=== PATIENT | female | born 1990 | race Caucasian/White ===

== ENCOUNTER → 2017-12-01 15:05 | Outpatient (CLI) | payer MEDICAID, SELFPAY ==
[2017-12-01 15:27] LABS: Basophils % 0.2 % (0.1-2.0); Eosinophils % 0.7 % (0.1-12.0); Hematocrit 39.7 % (37.0-47.0); Hemoglobin 13.3 g/dL (12.2-16.2); Lymphocytes % 31.8 K/mm3 (10-50); Mean Corpuscular HGB Conc 33.7 g/dL (31.8-35.4); Mean Corpuscular Hemoglobin 31.7 pg (27.0-31.2); Mean Corpuscular Volume 94.2 fl (81-99); Mean Platelet Volume 7.7 fl (7.4-10.4); Monocytes # 0.4 K/mm3 (0.1-1.0); Monocytes % 6.3 % (1.7-9.3); Neutrophils # 3.9 K/mm3 (1.8-7.8); Platelet Count 182 K/mm3 (142-424); Red Blood Count 4.21 M/mm3 (4.20-5.40); White Blood Count 6.4 K/mm3 (4.8-10.8)
[2017-12-03 07:13] LABS: HIV Screen 4th Generation wRfx Non Reactive (Non Reactive)
[2017-12-03 09:48] LABS: Hepatitis B Surface Antigen Negative (Negative); Hepatitis C Antibody <0.1 s/co ratio (0.0-0.9); Rapid Plasma Reagin Ab Titer Non Reactive (NonRea<1:1)
== END ==
PROVIDERS: Family Provider Family Medicine; PCP Family Medicine; Visit Provider Nurse Practitioner Obstetrics & Gynecology
DX: Z34.90 Encounter for supervision of normal pregnancy, unspecified, unspecified trimester (principal)
CPT/HCPCS: 36415; 85025; 86592; 86703; 86762; 86850; 87340; 87380; G0432

== ENCOUNTER → 2017-12-08 12:53 | Outpatient (CLI) | payer MEDICAID, SELFPAY ==
--- NOTE | 2017-12-08 12:55 | US_ITS ---
US OB transvaginal HISTORY: ITS.REASON: US OB for Dates ORDERING PHYSICIAN: Gregorio Moody MD PATIENT AGE: 27 years COMPARISON: None FINDINGS: An intrauterine gestational sac is present with a pole with a crown-rump length of 1.87cm correlating to gestational age of 8w3d. heart tones are present with an FHR of 151 bpm's. Yolk sac is noted. The amnion and chorion have not yet fused. Adnexa: 1.5 cm right corpus luteum cyst. IMPRESSION: Live intrauterine gestation at 8 weeks 3 days. Estimated due date by ultrasound is 07/15/2018
== END ==
PROVIDERS: Family Provider Family Medicine; PCP Family Medicine; Visit Provider Nurse Practitioner Obstetrics & Gynecology
DX: O26.841 Uterine size-date discrepancy, first trimester (principal)
CPT/HCPCS: 76830

== ENCOUNTER → 2018-02-25 12:40 | Outpatient (CLI) | payer MEDICAID, SELFPAY ==
--- NOTE | 2018-02-25 12:41 | US_ITS ---
US OB /maternal detail: INDICATION: ITS.REASON: US OB Complete ORDERING PHYSICIAN: Gregorio Moody MD PATIENT AGE: 27 years TECHNIQUE: ultrasound transabdominal scanning. COMPARISON: No previous relevant studies. FINDINGS: Single viable intrauterine gestation. Cephalic position. Placenta: Anterior placenta grade weren't. There is average amount fluid. The cervix appears satisfactory. Closed and measuring 3 in length. Complete survey performed and was unremarkable on the submitted images as in PACS. No discrete anomalies identified on survey imaging by technologist. Active fetus. Three-vessel cord with satisfactory umbilical cord insertion. 4- chamber heart noted. Survey of brain & ventricles unremarkable. Face and neck survey unremarkable. Diaphragm and chest views unremarkable. Abdomen: Both kidneys noted and unremarkable. Stomach noted and satisfactory. Spine: Survey of the spine satisfactory with no anomalies identified nor imaged. Both arms and legs noted. Amniotic Fluid: Adequate. Maternal adnexa: No significant findings. Measurements: Average ultrasound age 20w0d. Gestational Age 19w5d. Estimated due date by ultrasound age 1107/15/2018. Estimated weight 312 grams. This is 49 percentile based on established due date BPD = 20w3d OFD = 20w2d HC = 19w4d AC = 20w1d FL = 19w4d Heart Rate = 150 bpm Cerebellum = 19w5d Humerus = 19w6d HC/AC is 1.14 (1.09-1.26). CI is 81% (70-86%). FL/BPD is 65%. FL/AC is 21%. IMPRESSION: Live intrauterine gestation at 20 weeks in cephalic presentation with an estimated due date of 07/15/2018. All parameters correlate. No obvious anomalies. Please see above for detail
== END ==
PROVIDERS: Family Provider Family Medicine; PCP Family Medicine; Visit Provider Nurse Practitioner Obstetrics & Gynecology
DX: Z36.0 Encounter for antenatal screening for chromosomal anomalies (principal)
CPT/HCPCS: 76811

== ENCOUNTER 2018-03-18 11:52 | Outpatient (CLI) | payer MEDICAID, SELFPAY ==
[2018-03-18 11:58] VITALS: BP 99/56; PULSE 97; RESP 18; TEMP 36.8; O2SAT 100; BMI 20.7
[2018-03-18 12:28] LABS: Microscopic, Urine URINE MICROSCOPIC (MICROSCOPIC)
[2018-03-18 12:29] LABS: Appearance,Urine CLEAR (Clear); Bilirubin,Urine Negative (Negative); Blood, Urine Negative (Negative); Color,Urine YELLOW (Yellow); Glucose,Urine (UA) Negative (Negative); Ketones,Urine Negative (Negative); Leukocyte Esterase,Urine Negative (Negative); Nitrate,Urine Negative (Negative); Protein,Urine Negative (Negative); Specific Gravity, Urine <= 1.005 (1.005-1.030); Urobilinogen,Urine 0.2 EU/dl (0.2)
[2018-03-18 12:37] LABS: Bacteria,Urine 1+ /lpf
== END 2018-03-18 12:52 | disposition home or self-care (01) ==
LOC: OBOUT 11:54 → OB 11:57
PROVIDERS: Visit Provider Obstetrics & Gynecology
DX: O47.02 False labor before 37 completed weeks of gestation, second trimester (principal); Z3A.22 22 weeks gestation of pregnancy
CPT/HCPCS: 59025; 81001

== ENCOUNTER → 2018-06-10 08:44 | Outpatient (CLI) | payer MEDICAID, SELFPAY ==
--- NOTE | 2018-06-10 08:45 | US_ITS ---
US OB biophysical profile, US SD Ratio umbilcal artery: Indication: Small for gestational age evaluation ITS.REASON: US OB BPP Growth- SGA ORDERING PHYSICIAN: Gregorio Moody MD PATIENT AGE: 27 years COMPARISON: 02/25/2018 FINDINGS: There is a single live fetus present in cephalic presentation. Average ultrasound age is 33 weeks and 6 days with an estimated due date by ultrasound of 07/23/2018. Estimated weight is 2132 g which is 11th percentile. movement and breathing motion noted BPD is 34 weeks 5 days, HC 34 weeks 4 days, abdominal circumference 33 weeks 0 days, FL 32 weeks 5 days. The HC/before meals is 1.07, cephalic index 78%, FL/BPD 73%, and FL/ac 22%. All are within normal limits. The placenta is anterior and grade 2. No placenta previa. Umbilical artery Doppler evaluation shows an SD ratio of 2.8 with a resistive index of 0.64. Biophysical profile is 8 of 8 with amniotic fluid index of 11 cm. IMPRESSION: Live intrauterine gestation with an average ultrasound age of 33 weeks and 6 days and an estimated weight 2132 g which is 11%. Anterior grade 2 placenta with unremarkable as sd ratio Biophysical profile 8 of 8
== END ==
PROVIDERS: Family Provider Family Medicine; PCP Family Medicine; Visit Provider Nurse Practitioner Obstetrics & Gynecology
DX: O36.5131 Maternal care for known or suspected placental insufficiency, third trimester, fetus 1 (principal)
CPT/HCPCS: 76819; 76820

== ENCOUNTER 2018-06-12 18:59 | Outpatient (CLI) | payer MEDICAID, SELFPAY ==
[2018-06-12 19:21] VITALS: BMI 22.2
[2018-06-12 19:25] VITALS: BP 107/74; PULSE 95; RESP 18; TEMP 37; O2SAT 97; BMI 22.2
[2018-06-12 19:29] LABS: Microscopic, Urine URINE MICROSCOPIC (MICROSCOPIC)
[2018-06-12 19:31] LABS: Appearance,Urine CLEAR (Clear); Bilirubin,Urine Negative (Negative); Blood, Urine Negative (Negative); Color,Urine YELLOW (Yellow); Glucose,Urine (UA) Negative (Negative); Ketones,Urine Negative (Negative); Leukocyte Esterase,Urine Negative (Negative); Nitrate,Urine Negative (Negative); Protein,Urine Negative (Negative); Specific Gravity, Urine <= 1.005 (1.005-1.030); Urobilinogen,Urine 0.2 EU/dl (0.2)
[2018-06-12 19:34] LABS: Amorphous Sediment,Urine Trace /lpf; Bacteria,Urine Trace /lpf; WBC,Urine Occasional #/hpf (0-3)
== END 2018-06-12 21:55 | disposition home or self-care (01) ==
LOC: OBOUT 19:00 → OB 19:01
PROVIDERS: PCP Family Medicine; Visit Provider Nurse Practitioner Obstetrics & Gynecology
DX: O47.03 False labor before 37 completed weeks of gestation, third trimester (principal); Z3A.35 35 weeks gestation of pregnancy
CPT/HCPCS: 59025; 81001; 96360; 96361; 96372

== ENCOUNTER → 2018-06-15 16:42 | Outpatient (REF) | payer MEDICAID, SELFPAY | LOC: LAB 16:42 | PROVIDERS: Visit Provider Nurse Practitioner Obstetrics & Gynecology | DX: Z34.90 Encounter for supervision of normal pregnancy, unspecified, unspecified trimester (principal) | CPT/HCPCS: 86403 ==

== ENCOUNTER 2018-06-18 15:06 | Outpatient (CLI) | payer MEDICAID, SELFPAY ==
[2018-06-18 15:29] VITALS: BP 104/64; PULSE 110; RESP 18; TEMP 36.9; O2SAT 96; BMI 22.0
[2018-06-18 16:02] LABS: Microscopic, Urine URINE MICROSCOPIC (MICROSCOPIC)
[2018-06-18 16:18] LABS: Appearance,Urine CLEAR (Clear); Bilirubin,Urine Negative (Negative); Blood, Urine Negative (Negative); Color,Urine YELLOW (Yellow); Glucose,Urine (UA) Negative (Negative); Ketones,Urine TRACE (Negative); Leukocyte Esterase,Urine Negative (Negative); Nitrate,Urine Negative (Negative); Protein,Urine Negative (Negative); Urobilinogen,Urine 0.2 EU/dl (0.2)
[2018-06-18 16:34] LABS: Bacteria,Urine 1+ /lpf
== END 2018-06-18 16:15 | disposition home or self-care (01) ==
LOC: OBOUT 15:09 → OB 15:11
PROVIDERS: PCP Family Medicine; Visit Provider Nurse Practitioner Obstetrics & Gynecology
DX: O47.03 False labor before 37 completed weeks of gestation, third trimester (principal); Z3A.35 35 weeks gestation of pregnancy
CPT/HCPCS: 59025; 81001; 96360

== ENCOUNTER → 2018-07-01 09:21 | Outpatient (CLI) | payer MEDICAID, SELFPAY ==
--- NOTE | 2018-07-01 | US_ITS ---
US OB biophysical profile, US OB follow up, US SD Ratio umbilcal artery: Indication: ITS.REASON: US OB BPP Growth- SGA ORDERING PHYSICIAN: Gregorio Moody MD PATIENT AGE: 28 years FINDINGS: The following parameters are obtained: Average ultrasound age is 35w1d. Estimated due date by ultrasound is 08/04/2018. Estimated weight is 2383 . This is 3 percentile indicating intrauterine growth restriction BPD: 36w1d OFD: 36w1d HC: 35w5d AC: 33w2d FL: 35w1d heart rate: 136 bpm. HC/AC: 1.09 (0.92-1.05) Cephalic index: 80% (70-86%) FL/BPD: 76% (71-87%) FL/AC: 23% (20-24%) Amniotic fluid index: 12 cm Qualitative AFV: 2 breathing movements: 2 Gross body movements: 2 Tone: 2 Biophysical profile score: 8/8 Doppler evaluation of the umbilical artery: SD ratio: 2.6 Resistive index: 0.61 No obvious anomalies evident. Placenta: Anterior Gr 2 Cervix: Appears closed and measures 3 cm IMPRESSION: There is a single live intrauterine gestation which is in cephalic presentation. Average ultrasound age is 35 weeks and 1 day. Estimated weight is 2383 g which is 3rd percentile indicating intrauterine growth restriction which appears asymmetric as the abdominal circumference is 2 weeks behind the remaining parameters Grade 2 anterior placenta. Biophysical profile 8 of 8 with an amniotic fluid index of 12 Unremarkable umbilical artery Doppler
== END ==
PROVIDERS: Family Provider Family Medicine; PCP Family Medicine; Visit Provider Nurse Practitioner Obstetrics & Gynecology
DX: O36.5131 Maternal care for known or suspected placental insufficiency, third trimester, fetus 1 (principal)
CPT/HCPCS: 76816; 76819; 76820

== ENCOUNTER 2018-07-11 05:14 | Inpatient (IN) ==
[2018-07-11 05:51] LABS: Basophils % 0.3 % (0.1-2.0); Eosinophils # 0.1 K/mm3 (0.0-0.4); Eosinophils % 0.9 % (0.1-12.0); Hematocrit 39.6 % (37.0-47.0); Hemoglobin 13.4 g/dL (12.2-16.2); Lymphocytes % 31.4 K/mm3 (10-50); Mean Corpuscular HGB Conc 33.8 g/dL (31.8-35.4); Mean Corpuscular Hemoglobin 32.8 pg (27.0-31.2); Mean Corpuscular Volume 97.3 fl (81-99); Mean Platelet Volume 7.8 fl (7.4-10.4); Monocytes # 0.8 K/mm3 (0.1-1.0); Monocytes % 6.3 % (1.7-9.3); Neutrophils # 7.9 K/mm3 (1.8-7.8); Neutrophils % 61.1 % (37.0-80.0); Platelet Count 247 K/mm3 (142-424); Red Blood Count 4.07 M/mm3 (4.20-5.40); Red Cell Distribution Width 13.1 % (11.5-17.5); White Blood Count 12.8 K/mm3 (4.8-10.8)
[2018-07-11 05:59] LABS: Anion Gap 13.5 mEq/L (5-15); Calcium 8.4 mg/dL (8.5-10.1); Potassium 3.5 mmoL/L (3.5-5.1)
--- NOTE | 2018-07-11 07:09 | Progress Note ---
[facility] Anesthesia Checklist - Patient Identification Patient Identification: Arm Band, Verbal (Name & ) - Structural Data Admitted From: Inpatient Planned Operative Procedure/s: c section Consent for Planned Operative Procedure(s) Verified: Yes Verified Documents: Surgical Consent, History and Physical - NPO Status Verified Time NPO: 00:00 - Additional verifications Patient : Yes Anesthesia Reactions: No Hx Blood Transfusions: No Blood Transfusion Reaction: No Cephalosporin Allergy: No Previous Colonoscopy: No - Cardiovascular Assessment Heart Sounds: S1 & S2 Pulse Strength: Baseline Pulse Rhythm: Regular Peripheral Edema: No - Airway Assessment C-Spine Mobility Assessed: Yes TMJ Mobility Assessed: Yes Dentition: Poor Dentition - Neurological Assessment Level of Consciousness: Awake, Alert, Appropriate Hx Seizures: No Numbness or tingling in extremities: No - Anesthesia Plan Anesthesia Risk discussed: Yes Anesthesia Plan: Verified ASA Class: II Anesthesia Type: Spinal [facility] History I have reviewed the patient's past medical history: Yes 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: Denies:: Cancer, Diabetes Mellitus Type 1, Diabetes Mellitus Type 2, MRSA Other Surgeries: Yes: Amputation: No Fractures: No - *Social History Smoking Status: Current every day smoker Tobacco Type: cigarettes Alcohol Intake: never Substance Use Type: denies use *Family Hx:: No significant family history Para: 1
--- NOTE | 2018-07-11 08:18 | Operative Note ---
Date of procedure: 07/11/18 Pre-op Diagnosis:: Term , previous section Post-op Diagnosis:: Term , previous section Procedure performed:: Repeat lower segment transverse section Surgeon:: Gregorio Moody MD Tape Weaver(s):: Tiara Quiroga COKE LOADER:: Calvin Madrid Anesthesia: spinal Estimated blood loss (mL): 600 Clinical Note:: She is a 28-year-old 3 para 1 aborta 1 who was 39 weeks gestational age. She has had a previous section and as result of that was offered re peat lower segment transverse section at term. And benefits of surgery were discussed the patient prior to surgery. Operative findings:: She delivered a liveborn male child at 7:47 AM on the morning of July 11, 2018. Baby had Apgars of 9 at 1 minute and 10 at 5 minutes pH was 7.40. Ovaries and tubes appeared normal. Operative note:: She was taken to the operating room where spinal anesthesia was found be adequate. She was prepped and draped in normal sterile fashion in the supine position with a leftward tilt. A Borja catheter was in the bladder. A Pfannenstiel skin incision was made with knife then carried through to the underlying layer of fascia with cautery. The fascia was opened in the midline with cautery and extended laterally using Mendoza scissors. Po clamps were applied to the superior aspect of the fascial incision which was tented up and the underlying rectus muscles dissected off using cautery. The Po clamps were then applied to the inferior aspect of the fascial incision which in a similar fashion was tented up and the underlying rectus muscles dissected off using cautery. The rectus muscles were then in the midline, the peritoneum identified, and entered sharply with Metzenbaum scissors. This incision was then extended superiorly and inferiorly with cautery. We had good visualization of the bladder inferiorly. The bladder peritoneum was then opened in the midline and extended laterally using Metzenbaum scissors. A bladder flap was created digitally. Lower blade of the Jessie was then inserted so as to push the bladder out of the way. Transverse incision was made through the uterine muscle to the amnion. This incision was then extended laterally using fingers traction. The amnion was entered sharply with knife. There was clear amniotic fluid. The 's head was then delivered atraumatically. This was followed by the anterior shoulder and the rest of the infant's body atraumatically. The oropharynx and nasopharynx were bulb suctioned. The infant was then handed off to Dr. Tucker who assigned Apgars of 9 at 1 minute and 10 at 5 minutes. We then obtained cord blood as well as cord pH. The pH was 7. 4 0. Using gentle traction on the cord and countertraction on the fundus I was able to easily deliver the placenta intact. It had a normal three-vessel cord. The uterus was then cleared of clots and debris . The uterine incision was then closed using running 0 Vicryl suture in a locked fashion. A second layer of the same suture was used to imbricate the first layer. The bladder peritoneum was then closed using running 2-0 Vicryl suture in a locked fashion. The gutters and cul-de-sac were then cleared of clots and debris . Once again hemostasis was assured. The peritoneum was grasped with Tess clamps and closed using running 2-0 Vicryl suture. The rectus muscles were then reapproximated using running 0 Vicryl suture. The fascia was closed using running #1 Vicryl suture. The subcutaneous tissues were then irrigated with warm water followed by closure Cathy's fascia using running 2-0 Monocryl suture. The skin was closed with juan manuel. I then cleaned the skin with Hibiclens. Sterile dressings were applied. She tolerated the procedure well and was taken to the recovery room in excellent condition. All sponges minute and needle counts were correct. Estimate a blood loss was approximately 600 mL. Condition: stable Disposition: PACU Specimens:: Products of conception Complications:: None
--- NOTE | 2018-07-11 08:21 | Progress Note ---
[facility] Anesthesia Record Part II Discharge Time: 08:45 Destination: Obstetric PACU nurse assessment reviewed?: Yes Patient Condition:: Good Anesthesia Complications:: None
--- NOTE | 2018-07-11 08:21 | Progress Note ---
[facility] Anesthesia Record Part I Intake, IV Amount: 2,000 Estimated blood loss (mL): 600 Urine output (mL): 300 Blood Pressure: 103/74 SaO2: 96 Pulse Rate: 73 Respiratory Rate: 16 Temperature: 97 F Patient is:: Awake, Stable Stable to PACU at:: 08:15
[2018-07-11 14:15] LABS: Hematocrit 34.5 % (37.0-47.0)
[2018-07-11 14:21] LABS: Hemoglobin 12.1 g/dL (12.2-16.2)
[2018-07-12 05:39] LABS: Basophils % 0.2 % (0.1-2.0); Eosinophils # 0.1 K/mm3 (0.0-0.4); Eosinophils % 0.9 % (0.1-12.0); Hematocrit 34.6 % (37.0-47.0); Hemoglobin 11.6 g/dL (12.2-16.2); Lymphocytes % 23.9 K/mm3 (10-50); Mean Corpuscular HGB Conc 33.7 g/dL (31.8-35.4); Mean Corpuscular Hemoglobin 33.1 pg (27.0-31.2); Mean Corpuscular Volume 98.3 fl (81-99); Mean Platelet Volume 7.9 fl (7.4-10.4); Monocytes % 7.9 % (1.7-9.3); Neutrophils # 8.5 K/mm3 (1.8-7.8); Neutrophils % 67.1 % (37.0-80.0); Platelet Count 243 K/mm3 (142-424); Red Blood Count 3.51 M/mm3 (4.20-5.40); White Blood Count 12.7 K/mm3 (4.8-10.8)
--- NOTE | 2018-07-12 08:08 | Progress Note ---
Internal Medicine - PN: Subj *Date: 07/12/18 *Time: 08:06 Interval history: She continues to do very well. She is eating and is breast-feeding. Her lochia is normal. Her pain is well controlled. Exam Vital signs and Labs for Last 24 Hours: Temp Pulse Resp BP Pulse Ox 97.4 F L 66 16 105/64 L 97 07/11/18 08:45 07/11/18 08:45 07/11/18 08:45 07/11/18 08:45 07/11/18 08:45 Laboratory Results - last 24 hr 07/11/18 07:34: Urine Color Yellow, Urine Appearance Clear, Urine pH 7.0, Ur Specific [place] <= 1.005, Urine Protein Negative, Urine Glucose (UA) Negative, Urine Ketones Negative, Urine Blood 3+, Urine Nitrate Negative, Urine Bilirubin Negative, Urine Urobilinogen 0.2, Ur Leukocyte Esterase Negative, Urine RBC 5- 10, Urine WBC None, Ur Squamous Epith Cells Occasional, Urine Bacteria Trace 07/11/18 14:00: Hgb 12.1 L, Hct 34.5 L 07/12/18 05:24: WBC 12.7 H, RBC 3.51 L, Hgb 11.6 L, Hct 34.6 L, MCV 98.3, MCH 33.1 H, MCHC 33.7, RDW 13.0, Plt Count 243, MPV 7.9, Neut % (Auto) 67.1, Lymph % (Auto) 23.9, [place] % (Auto) 7.9, Eos % (Auto) 0.9, Baso % (Auto) 0.2, Neut # (Auto) 8.5 H, Lymph # (Auto) 3.0, [place] # (Auto) 1.0, Eos # (Auto) 0.1, Baso # (Auto) 0.0 I & O for Last 24 hours: Intake & Output 07/09/18 07/10/18 07/11/18 07/12/18 11:59 11:59 11:59 11:59 Intake Total 2165 / 2165 Output Total 375 / 375 Balance 1790 / 1790 Weight 111 lb - Constitutional no acute distress Assessment and Plan (1) Previous section complicating , with delivery Current visit: Yes Status: Acute Category: Medical Code(s): O34.219 - Maternal care for unspecified type scar from previous delivery - Assessment and plan all Dx Assessment and Plan for all problems:: She continue to do well. We will plan to send her home in 48 hours.
--- NOTE | 2018-07-12 08:09 | History & Physical Report ---
OB - H&P: HPI Antepartum - History of Present Illness Chief complaint: Term , previous section History of present illness: She is a 28-year-old 3 para 1 aborta 1 who is 39 weeks gestational age. She has had a previous section and as a result of that was offered repeat lower segment transverse section at term. - History of Present Criteria for establishing EDC:: LMP confirmed by 1st trimester US care: good care Ultrasounds: normal 1st trimester US Obstetrical complications: growth restriction Medical complications: none - Labs Blood type: O (+) positive Rubella: immune RPR/VDRL: nonreactive GBS status: positive HBsAG: negative [facility] History I have reviewed the patient's past medical history: Yes 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: Denies:: Cancer, Diabetes Mellitus Type 1, Diabetes Mellitus Type 2, MRSA, Seizures Other 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: Denies: Blood Transfusion Reaction Other Surgeries: Yes: Amputation: No Fractures: No - *Social History Smoking Status: Current every day smoker Tobacco Type: cigarettes Alcohol Intake: never Substance Use Type: denies use *Family Hx:: No significant family history Para: 1 Review of Systems - Review of Systems Review of systems:: pertinent systems reviewed and negative unless documented below Meds Home Medications Medication Instructions Recorded Confirmed Type 1 tab PO QHS 12/01/17 07/11/18 History vitamin,calcium,xybbvukw-rzbd-jefyy acid tablet Benzoyl Peroxide 1 applic TOPICAL BID 02/20/18 07/11/18 History Ferrous Sulfate 325 mg PO DAILY 06/12/18 07/11/18 History NIFEdipine [Procardia] 10 mg PO .4 times a day 07/11/18 07/11/18 History Allergies Allergy/AdvReac Type Severity Reaction Status Date / Time Penicillins [PENICILLINS] Allergy Unknown Unknown Verified 07/08/18 11:47 allergy reaction Sulfa (Sulfonamide Allergy Unknown Unknown Verified 07/08/18 11:47 Antibiotics) allergy [SULFA (SULFONAMIDE reaction ANTIBIOTICS)] codeine Allergy Unknown Verified 07/08/18 11:47 allergy reaction OB - H&P: Exam - Physical Exam Vital signs: Temp Pulse Resp BP Pulse Ox 97.4 F L 66 16 105/64 L 97 07/11/18 08:45 07/11/18 08:45 07/11/18 08:45 07/11/18 08:45 07/11/18 08:45 - Constitutional no acute distress - Routine HEENT Exam Head: Present: normocephalic Eye: Present: EOMI, PERRL ENT: Present: mucous membranes moist - Routine Neck Exam Present: supple, full ROM - Routine Respiratory Exam Absent: accessory muscle use (good air entry bilaterally), respiratory distress, wheezes, crackles - Routine Cardiovascular Exam Present: RRR. Absent: murmur - Routine Abdominal Exam Present: soft, normoactive bowel sounds. Absent: tenderness, distended, guarding - Routine Rectal Exam Patient deferred: visual exam, digital exam - Routine Exam Patient deferred: external exam, groin exam, perineal exam - Routine Extremities Exam Present: full ROM. Absent: cyanosis, edema - Routine Skin Exam Present: intact. Absent: cyanosis - Routine Neurological Exam Present: alert, oriented X3 - Routine Psychiatric Exam Present: normal affect OB - Results - Labs Labs: Short CBC 07/11/18 07/12/18 Range/Units 14:00 05:24 WBC 12.7 H (4.8-10.8) K/mm3 Hgb 12.1 L 11.6 L (12.2-16.2) g/dL Hct 34.5 L 34.6 L (37.0-47.0) % Plt Count 243 (142-424) K/mm3 Urine 07/11/18 Range/Units 07:34 Urine Color Yellow (Yellow) Urine Appearance Clear (Clear) Urine pH 7.0 (5.0-8.5) Ur Specific [place] <= 1.005 (1.005-1.030) Urine Protein Negative (Negative) Urine Glucose (UA) Negative (Negative) OB - A/P Antepartum (1) Previous section complicating , with delivery Current visit: Yes Status: Acute - Additional Plan Planning to breastfeed?: Yes Plan: other Additional Information:: She is here for a repeat lower segment transverse section
--- NOTE | 2018-07-12 16:22 | Pharmacy Consult Notes ---
[facility] Pharmacy VTE Monitoring - Patient Demographics Admission date: 07/11/18 Report Date: 07/12/18 Time: 16:22 Allergies/Adverse Reactions: Patient Allergies Penicillins [PENICILLINS] Allergy (Unknown, Verified 07/08/18 11:47) Unknown allergy reaction Sulfa (Sulfonamide Antibiotics) [SULFA (SULFONAMIDE ANTIBIOTICS)] Allergy (Unknown, Verified 07/08/18 11:47) Unknown allergy reaction codeine Allergy (Verified 07/08/18 11:47) Unknown allergy reaction Height: 1.5 m Weight: 50.349 kg Patient Problems: Current Active Problems Previous section complicating , with delivery (Acute) - VTE Risk Labs: VTE Related Lab Results Hgb 11.6 g/dL (12.2-16.2) L 07/12/18 05:24 Hct 34.6 % (37.0-47.0) L 07/12/18 05:24 Plt Count 243 K/mm3 (142-424) 07/12/18 05:24 BUN 3 mg/dL (7-18) L 07/11/18 05:35 Creatinine 0.46 mg/dL (0.55-1.02) L 07/11/18 05:35 Estimated Creat Clear 143 mL/min (0-300) 07/11/18 05:35 - Prophylaxis VTE Prophylaxis Ordered?: Yes Types of VTE Prophylaxis: IPCS Knee High Location of Applied Device: Bilateral Lower Extremeties
--- NOTE | 2018-07-13 09:37 | Progress Note ---
Internal Medicine - PN: Subj *Date: 07/13/18 *Time: 09:37 Interval history: She is doing well this morning. She is eating and drinking and ambulating. She is breast-feeding. Her milk is coming. Her incision is clean and dry. Exam Vital signs and Labs for Last 24 Hours: Temp Pulse Resp BP Pulse Ox 98.6 F 71 18 110/70 98 07/12/18 20:16 07/12/18 20:16 07/12/18 20:16 07/12/18 20:16 07/12/18 20:16 I & O for Last 24 hours: Intake & Output 07/10/18 07/11/18 07/12/18 07/13/18 11:59 11:59 11:59 11:59 Intake Total 2165 / 2165 Output Total 375 / 375 Balance 1790 / 1790 Weight 111 lb 111 lb - Constitutional no acute distress - *Routine Abdominal Exam Present: soft (Incision is clean and dry.), normoactive bowel sounds, wound. Absent: tenderness, rebound, guarding, mass Assessment and Plan (1) Previous section complicating , with delivery Current visit: Yes Status: Acute Category: Medical Code(s): O34.219 - Maternal care for unspecified type scar from previous delivery - Assessment and plan all Dx Assessment and Plan for all problems:: She continues to do well. We will plan to send her home tomorrow.
[2018-07-13 23:53] VITALS: BP 109/59
--- NOTE | 2018-07-14 08:14 | Discharge Summary ---
General - General Admission date:: 07/11/18 Discharge date: 07/14/18 HPI HPI: She is a 28-year-old 3 now para 2 aborta 1 who is 39 weeks gestational age. She has had a previous section and as result of that was offered repeat lower segment transverse section. Hospital Course Hospital Course: On July 11, 2018 she underwent a repeat lower segment transverse section. She delivered a liveborn male child weighing 5 pounds 10 ounces and he was 18 inches long. He had Apgars of 9 at 1 minute and 10 at 5 minutes. She has done well and has remained afebrile throughout her hospitalization. She is eating and building. She is breast-feeding. She has O+ blood, she is rubella immune and she was group B streptococcus positive. Her knocker out is Dr. Tucker. She is discharged home to follow-up with me in approximately 2 weeks time. She will continue with her vitamins and iron. She was given a prescription for Percocet 5/325 number 20 tablets. Rhogam Administration: Not Indicated Objective Vital signs: Temp Pulse Resp BP Pulse Ox 98.4 F 62 18 109/59 L 98 07/13/18 20:31 07/13/18 20:31 07/13/18 20:31 07/13/18 20:31 07/13/18 20:31 no acute distress DS: Diagnosis - Discharge Diagnosis (1) Previous section complicating , with delivery Status: Acute Discharge Plan - Patient Discharge Instructions ACTIVITY: No heavy lifting DIET: continue same diet Patient Instructions: Depression, Hemorrhage, Surgical Site Infection, DI for Postoperative Pain, [facility] Post Discharge Instructions - Follow up Plan Follow up with: Gregorio Moody MD [Staff Physician] - 07/25/18 1:45 pm Disposition: Home, Self-Group Home Medications: Home Medications Medication Instructions Recorded Confirmed Type 1 tab PO HS 12/01/17 07/12/18 History vitamin,calcium,nfzbgmbz-mjnh-yugpe acid tablet Benzoyl Peroxide 1 applic TOPICAL BID 02/20/18 07/11/18 History Ferrous Sulfate 325 mg PO DAILY 06/12/18 07/11/18 History NIFEdipine [Procardia] 10 mg PO QID 07/11/18 07/12/18 History Prescriptions/Medication Reconciliation: New Oxycodone HCl/Acetaminophen [Percocet 5/325mg tablet] 1 - 2 tab PO Q4-6H PRN #20 tablet PRN Reason: Severe Pain Simethicone [Mylicon 80mg Chewable Tablet] 160 mg PO Q4HP PRN #30 tab.chew PRN Reason: Gas Pain And Discomfort Continue vitamin,calcium,msouuuul-raue-oqloy acid tablet 1 tab PO HS ranitidine 150 mg tablet 150 mg PO BID #60 tab Benzoyl Peroxide 1 applic TOPICAL BID Ferrous Sulfate 325 mg PO DAILY NIFEdipine [Procardia] 10 mg PO QID
== END 2018-07-14 13:55 | disposition home or self-care (01) ==
LOC: OB 05:14
PROVIDERS: ADMIT Nurse Practitioner Obstetrics & Gynecology; ATTEND Nurse Practitioner Obstetrics & Gynecology

== ENCOUNTER → 2019-06-05 14:06 | Outpatient (CLI) | payer MEDICAID, SELFPAY ==
[2019-06-05 15:42] LABS: HCG,Quantitative 61 mIU/mL
== END ==
PROVIDERS: Visit Provider Nurse Practitioner Obstetrics & Gynecology
DX: Z32.00 Encounter for pregnancy test, result unknown (principal)
CPT/HCPCS: 36415; 84702

== ENCOUNTER → 2019-06-12 15:08 | Outpatient (CLI) | payer MEDICAID, SELFPAY ==
[2019-06-12 17:47] LABS: HCG,Quantitative 180 mIU/mL
== END ==
PROVIDERS: Visit Provider Nurse Practitioner Obstetrics & Gynecology
DX: Z34.90 Encounter for supervision of normal pregnancy, unspecified, unspecified trimester (principal)
CPT/HCPCS: 36415; 84702

== ENCOUNTER → 2019-07-06 09:59 | Outpatient (CLI) | payer MEDICAID, SELFPAY | PROVIDERS: Visit Provider Nurse Practitioner Obstetrics & Gynecology | DX: N39.0 Urinary tract infection, site not specified (principal) | CPT/HCPCS: 87086; 87088; 87186 ==

== ENCOUNTER 2020-01-10 17:15 | Emergency (ER) | payer OTHER, SELFPAY ==
[2020-01-10 17:16] VITALS: BP 112/79; PULSE 120; RESP 22; TEMP 37.2; O2SAT 100; BMI 19.8
--- NOTE | 2020-01-10 17:29 | ECG_ITS ---
APPROVED REPORT Exam: Resting ECG HR:89 bpm ECG Measurements Heart Rate [address] 112 P 64 QRSd 80 QRS 49 QT 332 T 65 QTc 403 <Conclusion> Normal sinus rhythm Normal ECG Electronically signed by : Juan Daniel Bradshaw, 01/12/2020 16:34:10
--- NOTE | 2020-01-10 17:49 | CT_ITS ---
PROCEDURE: CT ANGIO CHEST CLINCIAL INDICATION: SOA, COUGH, HEAVINESS IN CHEST Chest pain and pressure, shortness of breath COMPARISON: CXR CHEST(2 VIEWS-NOT PORTABLE) from 04/05/2013 TECHNIQUE: IV Contrast: 70ML OPTIRAY 350 Axial images obtained with sagittal and coronal reformats. All CT scans at the facility use one or more dose reduction, viz: automated exposure control, ma/kV adjustment per patient size (including targeted exams where dose is matched to indication, i.e. head), or iterative reconstruction technique. FINDINGS: HEART AND MEDIASTINAL STRUCTURES: No evidence of aortic aneurysm, dissection, or pulmonary embolus. No mediastinal or hilar mass or adenopathy. LUNGS AND PLEURAL SPACES: There is a 6 mm noncalcified pulmonary nodule within the right lower lobe anteriorly. The remaining lungs are clear. BONY STRUCTURES: There is wedging of the anterior aspect of the T7 vertebral body having a somewhat butterfly configuration anteriorly. This is felt represent a congenital variant UPPER ABDOMEN: Unremarkable. ADDITIONAL FINDINGS: No other significant abnormalities. IMPRESSION: 1. No acute finding. No evidence of pulmonary embolus or aortic aneurysm or dissection. 2. 6 mm solitary pulmonary nodule. For low risk patients in this age group, no specific follow-up is suggested per the revised Fleischner criteria Dictated by: Titus Medina MD 01/10/2020 20:30 Electronically signed by Titus Medina MD in [place] 01/10/2020 20:30
[2020-01-10 18:00] LABS: Basophils # 0.1 K/mm3 (0-0.2); Basophils % 1.1 % (0.1-2.0); Eosinophils # 0.1 K/mm3 (0.0-0.4); Hemoglobin 14.2 g/dL (12.2-16.2); Lymphocytes % 28.3 % (10-50); Mean Corpuscular HGB Conc 33.7 g/dL (31.8-35.4); Mean Corpuscular Hemoglobin 31.4 pg (27.0-31.2); Mean Corpuscular Volume 93.1 fl (81-99); Mean Platelet Volume 7.6 fl (7.4-10.4); Monocytes # 0.4 K/mm3 (0.1-1.0); Monocytes % 5.4 % (1.7-9.3); Neutrophils # 4.5 K/mm3 (1.8-7.8); Neutrophils % 64.2 % (37.0-80.0); Platelet Count 253 K/mm3 (142-424); Red Blood Count 4.51 M/mm3 (4.20-5.40); Red Cell Distribution Width 12.3 % (11.5-17.5); White Blood Count 6.9 K/mm3 (4.8-10.8)
[2020-01-10 18:02] LABS: Chloride 104 mmol/L (98-107); Potassium 3.7 mmoL/L (3.5-5.1); Sodium 139 mmol/L (136-145)
[2020-01-10 18:05] LABS: Anion Gap 10.7 mEq/L (5-15); Blood Urea Nitrogen 11 mg/dl (7-17); Calcium 9.3 mg/dl (8.4-10.2); Carbon Dioxide 28 mmol/L (22.0-30.0); Creatinine Clearance Estimated 82 mL/min (50-200); Estimated Glomerular Filt Rate 98 ml/min (>60); GFR (African American) 119 ML/MIN (>60); Glucose 102 mg/dl (74-100)
--- NOTE | 2020-01-10 18:15 | HMH.EDSOB ---
ED Disposition Clinical Impression: Chest pain, Viral syndrome Disposition: Home, Self-Care Condition on Discharge: Good Additional Instructions: Since she did have symptoms similar to COVID-19 and they were not testing every now we need to do self quarantine for 14 days if symptoms start to progress or worsen please return to the emergency department for testing. Referrals: Provider,Referral, [Primary Care Provider] - - Critical Care Critical Care Time: No Attestation: On 01/10/20, the high probability of a clinically significant, sudden or life threatening deterioration of the following system(s) required my full and direct attention, intervention and personal management. The time I documented below is in addition to time spent performing reported procedures but includes the following listed in this critical care notation. Medical Decision Making - Medical Records Medical records reviewed: Yes: I reviewed the patient's medical records. - Yazan Inquiry Pt receiving controlled substance: No Vital Signs: 01/10/20 17:16 Temperature 99.0 F Temperature Source Oral Pulse Rate [Right Radial] 120 H Respiratory Rate 22 Blood Pressure [Right Arm] 112/79 Blood Pressure Mean [Right Arm] 90 Blood Pressure Source [Right Arm] Automatic Cuff Blood Pressure Position [Right Arm] Sitting 02 Sat by Pulse Oximetry 100 Oxygen Delivery Method Room Air - Lab Data Lab results reviewed: Yes: I reviewed the patient's lab results. Lab Results 01/10/20 17:35: WBC 6.9, RBC 4.51, Hgb 14.2, Hct 42.0, MCV 93.1, MCH 31.4 H, MCHC 33.7, RDW 12.3, Plt Count 253, MPV 7.6, Neut % (Auto) 64.2, Lymph % (Auto) 28.3, [place] % (Auto) 5.4, Eos % (Auto) 1.0, Baso % (Auto) 1.1, Neut # (Auto) 4.5, Lymph # (Auto) 2.0, [place] # (Auto) 0.4, Eos # (Auto) 0.1, Baso # (Auto) 0.1 01/10/20 17:35: Urine HCG, Qual Negative 01/10/20 17:35: Sodium 139, Potassium 3.7, Chloride 104, Carbon Dioxide 28, Anion Gap 10.7, BUN 11, Creatinine 0.70, Estimated Creat Clear 82, Estimated GFR 98, Est GFR ( Amer) 119, Glucose 102 H, Calcium 9.3, Troponin I < 0.01 Result diagrams: 01/10/20 17:35 01/10/20 17:35 Orders (Tests/Meds): ED MEDICATIONS Discontinued Medications Generic Name Dose Route Start Last Admin Trade Name Chelsea PRN Reason Stop Dose Admin Ioversol 70 ml 01/10/20 18:55 01/10/20 18:56 Rad-Optiray 350 100ml Vial IV 01/10/20 18:56 70 ml ONCE ONE Administration Protocol Sodium Chloride 50 ml 01/10/20 18:55 01/10/20 18:56 Rad-Ns 50ml Vial IV 01/10/20 18:56 50 ml ONCE ONE Administration Sodium Chloride 10 ml 01/10/20 18:55 01/10/20 18:56 Rad-Saline Flush 10ml Syringe IV 01/10/20 18:56 10 ml ONCE ONE Administration ORDERS Category Date Time Status CT angio chest Stat Cat Scan 01/10/20 17:49 Taken Troponin I Q3H Lab 01/10/20 21:00 Ordered Troponin I Q3H Lab 01/11/20 00:00 Ordered - CT Data CT Scan: Abdomen Time Received: 19:34 Preliminary Findings: Normal/NAD Resp/SOB HPI - General Chief Complaint: Shortness of Breath/Dyspnea Stated Complaint: SOB<PINON Time Seen by Provider: 01/10/20 18:15 Mode of Arrival: Ambulatory Source of Information: Patient Limitations: No Limitations Description of Symptoms (Recalled from ER Triage Doc. by RN): PT C/O PINON, COUGH, SOA X3 DAYS THAT HAS WORSENED TODAY ON EXCERTION AND IS NOW ACCOMPANIED BY A HEAVINESS IN HER CHEST. - History of Present Illness We have a 29-year-old female that presents the ED complaining of increasing shortness of breath some chest pain tachycardia cough and generalized fatigue x3 days. She describes the chest pain as sharp in nature and rates the pain 4 out of 10. Exacerbating factors include increasing intrathoracic pressure and alleviating factors include rest. Patient is also a smoker. Patient also denies any other health problems. Patient states that she felt febrile at home but she is afebrile here she is not taking any anti
[2020-01-10 18:28] LABS: Urine Pregnancy, HCG Qual. Negative (Negative)
[2020-01-10 18:29] LABS: Troponin I < 0.01 ng/ml (0.00-0.034)
--- NOTE | 2020-01-10 19:00 | PC.NURSE ---
PT RETURNED FROM RAD
[2020-01-10 20:19] VITALS: BP 130/93; PULSE 76; RESP 19; TEMP 36.6; O2SAT 95
== END 2020-01-10 20:23 | disposition home or self-care (01) ==
PROVIDERS: Emergency Provider Family Medicine
DX: R07.9 Chest pain, unspecified (principal); B34.9 Viral infection, unspecified; F41.9 Anxiety disorder, unspecified; Z79.899 Other long term (current) drug therapy; Z88.0 Allergy status to penicillin; Z88.2 Allergy status to sulfonamides
CPT/HCPCS: 71275; 80048; 81025; 84484; 85025; 93005; 99282; 99283; Q9967

== ENCOUNTER → 2020-01-26 12:54 | Outpatient (CLI) | payer OTHER, SELFPAY ==
[2020-01-26 13:08] LABS: Basophils % 0.4 % (0.1-2.0); Eosinophils # 0.1 K/mm3 (0.0-0.4); Hematocrit 41.3 % (37.0-47.0); Hemoglobin 13.2 g/dL (12.2-16.2); Lymphocytes # 2.3 K/mm3 (0.7-4.5); Lymphocytes % 33.7 % (10-50); Mean Corpuscular Volume 93.8 fl (81-99); Mean Platelet Volume 7.5 fl (7.4-10.4); Monocytes # 0.4 K/mm3 (0.1-1.0); Monocytes % 5.1 % (1.7-9.3); Neutrophils # 4.1 K/mm3 (1.8-7.8); Neutrophils % 59.8 % (37.0-80.0); Platelet Count 275 K/mm3 (142-424); Red Cell Distribution Width 12.9 % (11.5-17.5); White Blood Count 6.9 K/mm3 (4.8-10.8)
[2020-01-26 16:07] LABS: Chloride 106 mmol/L (98-107); Sodium 136 mmol/L (136-145)
[2020-01-26 16:08] LABS: Potassium 4.1 mmoL/L (3.5-5.1)
[2020-01-26 16:10] LABS: Alanine Aminotransferase 18 U/L (12-78); Albumin Level 4.3 g/dl (3.5-5.0); Alkaline Phosphatase 67 U/L (38-126); Anion Gap 7.1 mEq/L (5-15); Aspartate Amino Transferase 24 U/L (14-36); Bilirubin,Total 0.4 mg/dl (0.2-1.3); Blood Urea Nitrogen 7 mg/dl (7-17); Carbon Dioxide 27 mmol/L (22.0-30.0); Estimated Glomerular Filt Rate 117 ml/min (>60); GFR (African American) 142 ML/MIN (>60); Globulin 2.2 g/dL (1.3-3.2); Total Protein,Serum 6.5 g/dl (6.3-8.2)
[2020-01-26 16:11] LABS: Chol/HDL Ratio 2.4 (1-3.5); Cholesterol 142 mg/dl (140-200); Glucose 81 mg/dl (74-100); HDL Cholesterol 60 mg/dl (40-60); Triglycerides 64 mg/dl (30-150); VLDL Cholesterol 13 mg/dL (0-40)
[2020-01-26 16:22] LABS: Direct LDL Cholesterol 83.35 mg/dL (100-129)
[2020-01-27 07:10] LABS: Hep A Ab, IgM Negative (Negative); Hepatitis B Core Antibody IgM Negative (Negative); Hepatitis B Surface Antigen Negative (Negative)
[2020-01-27 08:42] LABS: Hepatitis C Antibody <0.1 s/co ratio (0.0-0.9)
== END ==
PROVIDERS: Visit Provider Internal Medicine Adolescent Medicine
DX: R10.84 Generalized abdominal pain (principal); K21.9 Gastro-esophageal reflux disease without esophagitis
CPT/HCPCS: 36415; 80053; 80061; 80074; 85025

== ENCOUNTER → 2020-05-21 12:02 | Outpatient (CLI) | payer OTHER, SELFPAY ==
--- NOTE | 2020-05-21 12:05 | XR_ITS ---
PROCEDURE: XR CHEST PORTABLE CLINICAL HISTORY: COVID OUT PATIENT TESTING Cough COMPARISON: CR CXR CHEST(2 VIEWS-NOT PORTABLE) from 04/05/[address] ANGIO CHEST from 01/10/2020 FINDINGS: The cardiomediastinal silhouette and pulmonary vascularity are within normal limits. No lobar consolidation or collapse. There is a 5 mm nodular opacity in the right midlung laterally nonspecific. Minimal midthoracic curvature convex right IMPRESSION: No acute finding. 5 mm right midlung nodular opacity as previously identified on the chest CT of 01/10/2020. Dictated by: Titus Medina MD 05/21/2020 13:25 Titus Medina MD in [place] 05/21/2020 13:25
[2020-05-22 07:47] LABS: Covid-19 Nasal PCR Sendout Lex NOT DETECTED
== END ==
PROVIDERS: PCP Internal Medicine Adolescent Medicine; Visit Provider Internal Medicine Adolescent Medicine
DX: Z03.818 Encounter for observation for suspected exposure to other biological agents ruled out (principal); J02.9 Acute pharyngitis, unspecified
CPT/HCPCS: 71045; U0004

== ENCOUNTER → 2020-07-04 12:03 | Outpatient (CLI) | payer OTHER, SELFPAY ==
--- NOTE | 2020-07-04 12:07 | XR_ITS ---
PROCEDURE: XR FOOT WT BEARING RT 3V CLINICAL INDICATION: foot pain COMPARISON: No exams were available for comparison FINDINGS: No fracture or dislocation. No lytic or blastic change. There is normal mineralization. The joint spaces are well-preserved. No significant degenerative/arthritic changes. No erosive changes evident. Other findings:Borderline pes planus IMPRESSION: Borderline pes planus otherwise negative Dictated by: Titus Medina MD 07/04/2020 14:28 Titus Medina MD in [facility] 07/04/2020 14:28
--- NOTE | 2020-07-04 12:07 | XR_ITS ---
PROCEDURE: XR FOOT WT BEARING LT 3V CLINICAL INDICATION: foot pain COMPARISON: No exams were available for comparison FINDINGS: No fracture or dislocation. No lytic or blastic change. There is normal mineralization. The joint spaces are well-preserved. No significant degenerative/arthritic changes. No erosive changes evident. Other findings:There is mild pes planus. IMPRESSION: Pes planus otherwise negative Dictated by: Titus Medina MD 07/04/2020 14:27 Titus Medina MD in [facility] 07/04/2020 14:27
== END ==
PROVIDERS: PCP Internal Medicine Adolescent Medicine; Visit Provider Podiatrist
DX: M79.672 Pain in left foot (principal); M79.671 Pain in right foot
CPT/HCPCS: 73630

== ENCOUNTER → 2020-07-10 12:05 | Outpatient (CLI) | payer OTHER, SELFPAY ==
[2020-07-10 12:52] LABS: Basophils % 0.5 % (0.1-2.0); Eosinophils # 0.1 K/mm3 (0.0-0.4); Eosinophils % 1.7 % (0.1-12.0); Hematocrit 42.8 % (37.0-47.0); Hemoglobin 14.2 g/dL (12.2-16.2); Lymphocytes # 2.4 K/mm3 (0.7-4.5); Lymphocytes % 37.9 % (10-50); Mean Corpuscular HGB Conc 33.3 g/dL (31.8-35.4); Mean Corpuscular Volume 93.3 fl (81-99); Mean Platelet Volume 7.7 fl (7.4-10.4); Monocytes # 0.4 K/mm3 (0.1-1.0); Monocytes % 6.6 % (1.7-9.3); Neutrophils # 3.3 K/mm3 (1.8-7.8); Neutrophils % 53.2 % (37.0-80.0); Platelet Count 230 K/mm3 (142-424); Red Blood Count 4.59 M/mm3 (4.20-5.40); White Blood Count 6.2 K/mm3 (4.8-10.8)
[2020-07-10 13:14] LABS: Alanine Aminotransferase 8 U/L (12-78); Albumin Level 4.1 g/dl (3.5-5.0); Albumin/Globulin Ratio 1.8 (1.1-1.8); Alkaline Phosphatase 78 U/L (38-126); Anion Gap 9.7 mEq/L (5-15); Aspartate Amino Transferase 19 U/L (14-36); Bilirubin,Total 0.4 mg/dl (0.2-1.3); Blood Urea Nitrogen 9 mg/dl (7-17); Calcium 9.5 mg/dl (8.4-10.2); Carbon Dioxide 30 mmol/L (22.0-30.0); Chloride 106 mmol/L (98-107); Chol/HDL Ratio 2.7 (1-3.5); Cholesterol 129 mg/dl (140-200); Estimated Glomerular Filt Rate 117 ml/min (>60); GFR (African American) 141 ML/MIN (>60); Globulin 2.3 g/dL (1.3-3.2); Glucose 70 mg/dl (74-100); HDL Cholesterol 48 mg/dl (40-60); Potassium 4.7 mmoL/L (3.5-5.1); Sodium 141 mmol/L (136-145); Total Protein,Serum 6.4 g/dl (6.3-8.2); Triglycerides 98 mg/dl (30-150); VLDL Cholesterol 20 mg/dL (0-40)
[2020-07-10 13:25] LABS: Direct LDL Cholesterol 66.32 mg/dL (100-129)
[2020-07-10 13:31] LABS: 25-OH Vitamin D, Total 33.5 ng/mL (30-100)
[2020-07-10 15:11] LABS: Thyroid Stimulating Hormone 0.75 uIU/mL (0.465-4.68)
[2020-07-10 15:44] LABS: Vitamin B12 527 pg/mL (239-931)
== END ==
PROVIDERS: Visit Provider Internal Medicine Adolescent Medicine
DX: Z00.00 Encounter for general adult medical examination without abnormal findings (principal); R53.83 Other fatigue; Z79.899 Other long term (current) drug therapy
CPT/HCPCS: 36415; 80053; 80061; 82306; 82607; 84443; 85025

== ENCOUNTER → 2020-08-14 12:11 | Outpatient (CLI) | payer OTHER, SELFPAY ==
[2020-08-14 16:53] LABS: HCG,Quantitative < 2 mIU/ml (0-5.42)
== END ==
PROVIDERS: Visit Provider Nurse Practitioner Obstetrics & Gynecology
DX: Z32.00 Encounter for pregnancy test, result unknown (principal)
CPT/HCPCS: 36415; 84702

== ENCOUNTER → 2020-11-18 14:47 | Outpatient (CLI) | payer OTHER, SELFPAY ==
[2020-11-20 10:14] LABS: HIV Screen 4th Generation wRfx Non Reactive (Non Reactive)
[2020-11-20 11:50] LABS: Hep A Ab, IgM Negative (Negative); Hepatitis B Core Antibody IgM Negative (Negative); Hepatitis B Surface Antigen Negative (Negative)
[2020-11-20 13:28] LABS: HSV 2 IgG, Type Spec <0.91 index (0.00-0.90); Hepatitis C Antibody <0.1 s/co ratio (0.0-0.9); Rapid Plasma Reagin Ab Titer Non Reactive (NonRea<1:1)
[2020-11-21 05:23] LABS: Neisseria gonorrhoeae, NAA Negative (Negative)
== END ==
PROVIDERS: Visit Provider Nurse Practitioner Obstetrics & Gynecology
DX: R10.9 Unspecified abdominal pain (principal); Z72.51 High risk heterosexual behavior; Z11.4 Encounter for screening for human immunodeficiency virus [HIV]
CPT/HCPCS: 36415; 80074; 86592; 86695; 86703; 86790; 87491; 87591; G0432

== ENCOUNTER → 2020-11-21 09:13 | Outpatient (CLI) | payer OTHER, SELFPAY ==
--- NOTE | 2020-11-21 09:14 | US_ITS ---
PROCEDURE: US TRANSVAGINAL CLINICAL INDICATION: LLQP COMPARISON: US OBTV US OB transvaginal from 12/08/2017 FINDINGS: UTERUS: 8cm x 5cmx 4cm with a combined endometrial thickness of 10.8mm LEFT OVARY: [id number] with a volume of 7.5ml. RIGHT OVARY: [id number] with a volume of 9.4ml. No cul-de-sac fluid IMPRESSION: Unremarkable pelvic ultrasound Dictated by: Titus Medina MD 11/21/2020 17:49 iTtus Medina MD in [place] 11/21/2020 17:49
== END ==
PROVIDERS: PCP Internal Medicine Adolescent Medicine; Visit Provider Nurse Practitioner Obstetrics & Gynecology
DX: R10.32 Left lower quadrant pain (principal)
CPT/HCPCS: 76830

== ENCOUNTER → 2020-12-26 14:27 | Outpatient (CLI) | payer OTHER, SELFPAY ==
[2020-12-26 16:22] LABS: HCG,Quantitative 388 mIU/ml (0-5.42)
== END ==
PROVIDERS: Visit Provider Nurse Practitioner Family
DX: N92.6 Irregular menstruation, unspecified (principal)
CPT/HCPCS: 36415; 84702

== ENCOUNTER → 2021-01-02 13:04 | Outpatient (CLI) | payer OTHER, SELFPAY ==
[2021-01-02 15:26] LABS: HCG,Quantitative 4108 mIU/ml (0-5.42)
== END ==
PROVIDERS: Visit Provider Nurse Practitioner Obstetrics & Gynecology
DX: Z34.90 Encounter for supervision of normal pregnancy, unspecified, unspecified trimester (principal)
CPT/HCPCS: 36415; 84702

== ENCOUNTER → 2021-01-24 11:29 | Outpatient (CLI) | payer OTHER, SELFPAY ==
[2021-01-24 12:30] LABS: Basophils % 0.3 % (0.1-2.0); Eosinophils % 0.4 % (0.1-12.0); Hematocrit 40.6 % (37.0-47.0); Hemoglobin 13.9 g/dL (12.2-16.2); Lymphocytes # 1.7 K/mm3 (0.7-4.5); Lymphocytes % 23.7 % (10-50); Mean Corpuscular HGB Conc 34.2 g/dL (31.8-35.4); Mean Corpuscular Hemoglobin 31.6 pg (27.0-31.2); Mean Corpuscular Volume 92.5 fl (81-99); Mean Platelet Volume 7.8 fl (7.4-10.4); Monocytes # 0.4 K/mm3 (0.1-1.0); Monocytes % 5.6 % (1.7-9.3); Platelet Count 242 K/mm3 (142-424); Red Blood Count 4.38 M/mm3 (4.20-5.40); Red Cell Distribution Width 12.9 % (11.5-17.5); White Blood Count 7.1 K/mm3 (4.8-10.8)
[2021-01-25 06:45] LABS: HIV Screen 4th Generation wRfx Non Reactive (Non Reactive)
[2021-01-26 10:44] LABS: HSV 2 IgG, Type Spec <0.91 index (0.00-0.90); Hepatitis B Surface Antigen Negative (Negative); Hepatitis C Antibody <0.1 s/co ratio (0.0-0.9); Rapid Plasma Reagin Ab Titer Non Reactive (NonRea<1:1)
== END ==
PROVIDERS: Visit Provider Nurse Practitioner Obstetrics & Gynecology
DX: Z34.90 Encounter for supervision of normal pregnancy, unspecified, unspecified trimester (principal)
CPT/HCPCS: 36415; 85025; 86592; 86695; 86703; 86762; 86790; 86850; 87340; 87380; G0432

== ENCOUNTER → 2021-01-27 14:14 | Outpatient (CLI) | payer OTHER, SELFPAY ==
--- NOTE | 2021-01-27 14:25 | US_ITS ---
PROCEDURE: US OB <= 14 WEEKS FETUS CLINICAL INDICATION: for dates COMPARISON: US OBBIO US OB biophysical profile from 07/01/2018 FINDINGS: An intrauterine gestational sac is present with a pole with a crown-rump length of 2.3cm correlating to gestational age of 9weeks. heart tones are present with an FHR of 167bpm. Yolk sac is noted. Small right corpus luteum cyst IMPRESSION: Live IUP at 9 weeks Estimated due date by Ultrasound is 09/01/2021 Dictated by: Titus Medina MD 01/27/2021 17:56 Titus Medina MD in [place] 01/27/2021 17:56
== END ==
PROVIDERS: PCP Internal Medicine Adolescent Medicine; Visit Provider Nurse Practitioner Obstetrics & Gynecology
DX: Z34.90 Encounter for supervision of normal pregnancy, unspecified, unspecified trimester (principal)
CPT/HCPCS: 76801

== ENCOUNTER 2021-03-06 15:27 | Emergency (ER) | payer OTHER, SELFPAY ==
[2021-03-06 15:30] VITALS: BP 127/75; PULSE 112; RESP 18; TEMP 36.9; O2SAT 99; BMI 18.3
--- NOTE | 2021-03-06 15:49 | HMH.EDUTC ---
[facility] – [place] Disposition Clinical Impression: Head ache Qualifiers: Headache type: unspecified Headache chronicity pattern: unspecified pattern Intractability: not intractable Qualified Code(s): R51.9 - Headache, unspecified Qualifiers: Weeks of gestation: 14 weeks Qualified Code(s): Z3A.14 - 14 weeks gestation of Allergic rhinitis Qualifiers: Allergic rhinitis trigger: unspecified Allergic rhinitis seasonality: unspecified Qualified Code(s): J30.9 - Allergic rhinitis, unspecified Disposition: Home, Self-Care Condition on Discharge: Good Instructions: DI for Allergic Rhinitis Additional Instructions: Follow up with your informatics developer doctor. Follow up with your primary care doctor. GO TO THE ER FOR ANY WORSENING SYMPTOMS OR CONCERNS Prescriptions: Cetirizine HCl [All Day Allergy Relief] 10 mg PO DAILY 30 Days #30 cap Transmission Status: Received by [facility] [employer] Referrals: Avtar Marquis MD [Primary Care Provider] - Time of Disposition: 16:07 Medical Decision Making - Medical Records Medical records reviewed: No: I reviewed the patient's medical records. - Yazan Inquiry Pt receiving controlled substance: No Vital Signs: 03/06/21 15:30 03/06/21 16:21 Temperature 98.4 F 98 F Temperature Source Oral Pulse Rate 90 Pulse Rate [Right] 112 H Respiratory Rate 18 16 Blood Pressure 127/75 Blood Pressure [Right Arm] 127/75 Blood Pressure Mean [Right Arm] 92 Blood Pressure Source [Right Arm] Automatic Cuff 02 Sat by Pulse Oximetry 99 Oxygen Delivery Method Room Air - Lab Data Lab Results 03/06/21 16:18: Urine Color Yellow, Urine Appearance Clear, Urine pH 7.0, Ur Specific [place] > 1.030 H, Urine Protein Negative, Urine Glucose (UA) Negative, Urine Ketones Negative, Urine Blood Trace, Urine Nitrate Negative, Urine Bilirubin Negative, Urine Urobilinogen 0.2, Ur Leukocyte Esterase Negative [facility] [place] HPI - General Stated complaint: headache for 2 days Time Seen by Provider: 03/06/21 15:49 Mode of Arrival: Ambulatory Source of Information: Patient Limitations: No Limitations Description of Symptoms (Recalled from Triage Doc. by RN): pt c/o a PINON, nasal congestion and sneezing. pt states she is 14 weeks and believes it may be a sinus infection. HEENT Symptoms (Recalled from RN notes): Yes (PINON) Resp Symptoms (Recalled from RN notes): No Skin Symptoms (Recalled from RN notes): No MS Symptoms (Recalled from RN notes): No Functional Status (Recalled from RN notes): na - History of Present Illness Provider Complaint: She reports that she has been having a headache for the past 2 days. She is 14 weeks . She also states that she has been sneezing and having allergy symptoms. She does not take anything for allergies. Tylenol has helped her headache some, but then it comes back. - Related Data Home Medications Medication Instructions Recorded Confirmed omeprazole 40 mg capsule,delayed 40 mg PO cap 07/04/20 02/20/21 release vits no.130-ferrous fum 1 tab PO tab 01/24/21 02/20/21 27 mg iron-folic acid 800 mcg tablet Previous Rx's Medication Instructions Recorded polyethylene glycol 3350 17 gram 17 g PO DAILY 30 Days #30 each 01/28/21 oral powder packet promethazine 12.5 mg tablet 12.5 mg PO Q4-6H PRN #30 tab 01/28/21 ondansetron 4 mg disintegrating 4 mg PO Q6H PRN #30 tab 02/20/21 tablet Cetirizine HCl [All Day Allergy 10 mg PO DAILY 30 Days #30 cap 03/06/21 Relief] Allergies Allergy/AdvReac Type Severity Reaction Status Date / Time nitrofurantoin Allergy Intermediate Hives Verified 03/06/21 15:40 [From Macrobid] Penicillins [PENICILLINS] Allergy Unknown Unknown Verified 03/06/21 15:40 allergy reaction Sulfa (Sulfonamide Allergy Unknown Unknown Verified 03/06/21 15:40 Antibiotics) allergy [SULFA (SULFONAMIDE reaction ANTIBIOTICS)] codeine Allergy Unknown Verified 03/06/21 15:40 a
[2021-03-06 16:19] LABS: Apearance,Urine Clear (Clear); Color,Urine Yellow (Yellow); Glucose,Urine (UA) Negative (Negative); Ketones,Urine Negative (Negative); Protein,Urine Negative (Negative); Specific Gravity, Urine > 1.030 (1.005-1.030)
[2021-03-06 16:20] LABS: Bilirubin,Urine Negative (Negative); Blood, Urine Trace (Negative); UTC Leukocyte Esterase,Urine Negative (Negative); UTC Nitrate,Urine Negative (Negative); Urobilinogen,Urine 0.2 EU/dl (0.2)
[2021-03-06 16:21] VITALS: BP 127/75; PULSE 90; RESP 16; TEMP 36.6
== END 2021-03-06 16:21 | disposition home or self-care (01) ==
PROVIDERS: Emergency Provider Nurse Practitioner Family; PCP Internal Medicine Adolescent Medicine
DX: J30.9 Allergic rhinitis, unspecified (principal); Z3A.14 14 weeks gestation of pregnancy; F41.9 Anxiety disorder, unspecified; R51.9 Headache, unspecified
CPT/HCPCS: 81003; 99202; G0463

== ENCOUNTER → 2021-04-17 08:52 | Outpatient (CLI) | payer OTHER, SELFPAY ==
--- NOTE | 2021-04-17 08:52 | US_ITS ---
PROCEDURE: US OB >= 14 WEEKS FETUS CLINICAL INDICATION: 20 weeks gestation COMPARISON: US US OB <= 14 WEEKS FETUS from 01/27/2021 FINDINGS: Single live fetus is present in breech presentation cervix is closed measuring 4 cm. heart body motion noted. The placenta is fundal and grade 1. . Complete survey performed and was unremarkable on the submitted images as in PACS. No discrete anomalies identified on survey imaging by technologist. Active fetus. Three-vessel cord with satisfactory umbilical cord insertion. 4- chamber heart noted. Survey of brain & ventricles Unremarkable. Face and neck survey unremarkable. Diaphragm and chest views unremarkable. Abdomen: Both kidneys noted and unremarkable. Stomach noted and satisfactory. Spine: Survey of the spine satisfactory with no anomalies identified nor imaged. Both arms and legs noted. Amniotic Fluid: Adequate. Maternal adnexa: No significant findings. Measurements: Average ultrasound age 20weeks. Gestational Age 20weeks Estimated due date by ultrasound age 1209/04/2021. Estimated weight 329g BPD = 20weeks OFD = 20weeks HC = 19weeks 2days AC = 20weeks 3days FL = 20weeks Growth Percentile= 26% Heart Rate = 142bpm Cerebellum = 20weeks 1day Humerus = 20weeks 4days HC/AC is 1.08 CI is 0.79 FL/BPD is 0.69 FL/AC is 0.21 IMPRESSION: Live IUP in breech presentation with an average ultrasound age of 20 weeks. No obvious anomalies. All parameters correlate. Please see above for detail. Dictated by: Titus Medina MD 04/17/2021 13:56 Titus Medina MD in [place] 04/17/2021 13:56
== END ==
PROVIDERS: PCP Internal Medicine Adolescent Medicine; Visit Provider Nurse Practitioner Obstetrics & Gynecology
DX: Z34.90 Encounter for supervision of normal pregnancy, unspecified, unspecified trimester (principal); Z3A.20 20 weeks gestation of pregnancy
CPT/HCPCS: 76805

== ENCOUNTER 2021-04-24 20:51 | Outpatient (CLI) | payer OTHER, SELFPAY ==
[2021-04-24 20:59] VITALS: BP 106/69; PULSE 92; RESP 18; TEMP 36.9; O2SAT 100; BMI 19.5; BMI 19.6
[2021-04-24 21:46] LABS: Microscopic, Urine URINE MICROSCOPIC (MICROSCOPIC)
[2021-04-24 21:50] LABS: Appearance,Urine CLEAR (Clear); Bilirubin,Urine Negative (Negative); Blood, Urine Negative (Negative); Color,Urine YELLOW (Yellow); Glucose,Urine (UA) Negative (Negative); Ketones,Urine Negative (Negative); Leukocyte Esterase,Urine Negative (Negative); Nitrate,Urine Negative (Negative); PH,Urine 6.5 (5.0-8.5); Protein,Urine Negative (Negative); Urobilinogen,Urine 0.2 EU/dl (0.2)
[2021-04-24 22:03] LABS: Amphetamine/Metha Screen,Urine Negative ng/ml (<1000); Benzodiazepines Screen,Urine Negative ng/ml (<200)
[2021-04-24 22:04] LABS: Barbiturates Screen,Urine Negative ng/ml (<200)
[2021-04-24 22:05] LABS: Cannabinoid Screen,Urine Negative ng/ml (<50); Cocaine Screen,Urine Negative ng/ml (<300)
[2021-04-24 22:06] LABS: Methadone Screen,Urine Negative ng/ml (<300); Opiate Screen,Urine Negative ng/ml (<300)
[2021-04-24 22:07] LABS: Phencyclidine Screen,Urine Negative ng/ml (<25)
[2021-04-24 22:13] LABS: RBC,Urine Occasional #/hpf (0-3); Squamous Epithelial Cell,Urine Occasional #/hpf (0-5); WBC,Urine Occasional #/hpf (0-3)
== END 2021-04-24 22:00 | disposition home or self-care (01) ==
LOC: OBOUT 20:52 → OB 20:54
PROVIDERS: PCP Internal Medicine Adolescent Medicine; Visit Provider Obstetrics & Gynecology
DX: O26.892 Other specified pregnancy related conditions, second trimester (principal); Z3A.21 21 weeks gestation of pregnancy; R10.2 Pelvic and perineal pain
CPT/HCPCS: 80305; 81001; G0463

== ENCOUNTER 2021-05-14 17:47 | Emergency (ER) | payer OTHER, SELFPAY ==
--- NOTE | 2021-05-14 17:44 | ECG_ITS ---
APPROVED REPORT Exam: Resting ECG HR:93 bpm ECG Measurements Heart Rate 93 AXES IA 102 P 52 QRSd 80 QRS 32 QT 334 T 59 QTc 415 Conclusion Sinus rhythm with short IA Nonspecific ST abnormality Abnormal ECG Electronically signed by : Avtar Marquis MD 05/19/2021 21:06:43
[2021-05-14 17:48] VITALS: BP 111/69; PULSE 86; RESP 18; TEMP 36.9; O2SAT 97; BMI 19.8
--- NOTE | 2021-05-14 18:37 | HMH.EDGENADL ---
ED Disposition Clinical Impression: Palpitations Disposition: Home, Self-Care Condition on Discharge: Fair Instructions: Cardiac Arrhythmia (Alternative Therapy) Referrals: Avtar Marquis MD [Primary Care Provider] - - Critical Care Critical Care Time: No Attestation: On 05/14/21, the high probability of a clinically significant, sudden or life threatening deterioration of the following system(s) required my full and direct attention, intervention and personal management. The time I documented below is in addition to time spent performing reported procedures but includes the following listed in this critical care notation. Medical Decision Making - Medical Records Medical records reviewed: Yes: I reviewed the patient's medical records. - Yazan Inquiry Pt receiving controlled substance: No Vital Signs: 05/14/21 17:48 05/14/21 19:26 Temperature 98.4 F 98.2 F Temperature Source Oral Oral Pulse Rate 72 Pulse Rate [Left Radial] 86 Respiratory Rate 18 18 Blood Pressure 121/75 Blood Pressure [Right Arm] 111/69 Blood Pressure Mean [Right Arm] 83 Blood Pressure Source Automatic Cuff Blood Pressure Source [Right Arm] Automatic Cuff Blood Pressure Position Sitting Blood Pressure Position [Right Arm] Sitting 02 Sat by Pulse Oximetry 97 Oxygen Delivery Method Room Air Room Air Medical Decision Narrative: Pt to the ED today for further evaluation of palpitations. Well appearing on exam, no acute distress, being watched on the monitor with no evidence of ectopy, or irregular heart rhythm. Pt does not have any evidence of WPW, Brugada syndrome. Have discussed with pt as she does not have any symptoms currently, that lab work cxr would not likely show anything actionable as she has recent labwork and TSH that is normal. She is agreeable with not obtaining any tests and we will refer her for outpatient Holter monitor to be followed by cardiology. Pt given return precautions and will return to the ED with any new or worsening symptoms, has OB followup scheduled, is feeling normal movement. General Adult HPI - General Chief complaint: Arrhythmia/Palpitations Stated complaint: palpatations Time Seen by Provider: 05/14/21 18:00 Mode of Arrival: Ambulatory Limitations: No Limitations Description of Symptoms (Recalled from ER Triage Doc. by RN): 24 weeks preganant stating she has been having palpatations today. Denies chest pain - History of Present Illness HPI narrative: Is a 30-year-old female otherwise healthy who presents the ED today being 24 weeks with complaints of palpitations. Patient felt palpitations while sitting down earlier today, states that these were not worse with motion, states that she felt her pulse and felt that it was somewhat irregular and tachycardic, however this resolved shortly afterwards. Patient states she has had something similar to this in the past, but has not noticed it as much as she did today. Patient has an extensive family cardiac history with cardiac atherosclerotic disease in the early 40s, states she has no personal cardiac history, has never been told that she has bad heart valves or murmurs, states that she has not had any shortness of breath, chest pain, or dizziness or presyncope with exertion. - Related Data Home Medications Medication Instructions Recorded Confirmed omeprazole 40 mg capsule,delayed 40 mg PO cap 07/04/20 05/01/21 release vits no.130-ferrous fum 1 tab PO tab 01/24/21 05/01/21 27 mg iron-folic acid 800 mcg tablet cetirizine 10 mg tablet 10 mg PO tab 03/20/21 05/01/21 Previous Rx's Medication Instructions Recorded polyethylene glycol 3350 17 gram 17 g PO DAILY 30 Days #30 each 01/28/21 oral powder packet promethazine 12.5 mg tablet 12.5 mg PO Q4-6H PRN #30 tab 01/28/21 ondansetron 4 mg disintegrating 4 mg PO Q6H PRN #30 tab 02/20/21 tablet ferrous sulfate 325 mg (65 mg 325 mg PO DAILY #30 tab 03/20
[2021-05-14 19:26] VITALS: BP 121/75; PULSE 72; RESP 18; TEMP 36.8; O2SAT 98
== END 2021-05-14 19:28 | disposition home or self-care (01) ==
PROVIDERS: Emergency Provider Student in an Organized Health Care Education/Training Program; PCP Internal Medicine Adolescent Medicine
DX: R00.2 Palpitations (principal); Z3A.24 24 weeks gestation of pregnancy; F41.9 Anxiety disorder, unspecified; Z88.0 Allergy status to penicillin; Z88.2 Allergy status to sulfonamides; Z88.5 Allergy status to narcotic agent
CPT/HCPCS: 93005; 99282

== ENCOUNTER → 2021-05-15 11:40 | Outpatient (CLI) | payer OTHER, SELFPAY | PROVIDERS: PCP Internal Medicine Adolescent Medicine | DX: I49.9 Cardiac arrhythmia, unspecified (principal) | CPT/HCPCS: 93225; 93226 ==

== ENCOUNTER → 2021-06-05 08:56 | Outpatient (CLI) | payer OTHER, SELFPAY ==
[2021-06-05 09:23] LABS: Glucose,Fasting 78 mg/dl (74-100)
[2021-06-05 11:06] LABS: Glucose 1 Hour 95 mg/dL (74-100)
== END ==
PROVIDERS: Visit Provider Nurse Practitioner Obstetrics & Gynecology
DX: Z34.90 Encounter for supervision of normal pregnancy, unspecified, unspecified trimester (principal)
CPT/HCPCS: 36415; 82951

== ENCOUNTER → 2021-07-16 12:48 | Outpatient (CLI) | payer OTHER, SELFPAY ==
--- NOTE | 2021-07-16 12:49 | US_ITS ---
PROCEDURE: US OB FOLLOW UP CLINICAL INDICATION: US OB BPP/GROWTH for SGA FINDINGS: The following parameters are obtained: Average ultrasound age is Average 32weeks 3days Estimated due date by ultrasound is 09/07/2021. Estimated weight is 1,898g. This is 13th percentile. BPD: 32weeks 3days OFD: 33 weeks 0 days HC: 32weeks 4days AC: 31weeks 6days FL: 32weeks 3days heart rate: 142bpm bpm. HC/AC: 1.06 Cephalic index: 0.77 FL/BPD: 0.78 FL/AC: 0.23 Amniotic fluid index: 10.4cm The femur length is 32weeks 3days Single live fetus is present in cephalic presentation. heart body in respiratory motion is noted. The cervix is closed measuring 3.5 cm. The placenta is posterior and grade 1. No previa or abruption. IMPRESSION: Live IUP in cephalic presentation with an average ultrasound age of 32 weeks 3 days. Estimated weight is 1898 g which is 13th percentile. KOFI normal at 10 cm Biophysical profile 8 of 8. Dictated by: Titus Medina MD 07/16/2021 14:34 Titus Medina MD in [place] 07/16/2021 14:34
== END ==
PROVIDERS: PCP Internal Medicine Adolescent Medicine; Visit Provider Nurse Practitioner Obstetrics & Gynecology
DX: O36.5990 Maternal care for other known or suspected poor fetal growth, unspecified trimester, not applicable or unspecified (principal)
CPT/HCPCS: 76816; 76819

== ENCOUNTER → 2021-07-29 16:32 | Outpatient (CLI) | payer OTHER, SELFPAY | PROVIDERS: Visit Provider Nurse Practitioner Obstetrics & Gynecology | DX: Z34.90 Encounter for supervision of normal pregnancy, unspecified, unspecified trimester (principal) | CPT/HCPCS: 86403 ==

== ENCOUNTER → 2021-08-25 10:09 | Outpatient (CLI) | payer OTHER, SELFPAY ==
[2021-08-25 10:38] LABS: Basophils % 0.3 % (0.1-2.0); Eosinophils # 0.1 K/mm3 (0.0-0.4); Eosinophils % 0.6 % (0.1-12.0); Hematocrit 39.2 % (37.0-47.0); Hemoglobin 13.3 g/dL (12.2-16.2); Lymphocytes # 2.9 K/mm3 (0.7-4.5); Lymphocytes % 27.7 % (10-50); Mean Corpuscular Hemoglobin 33.5 pg (27.0-31.2); Mean Corpuscular Volume 98.7 fl (81-99); Mean Platelet Volume 8.4 fl (7.4-10.4); Monocytes # 0.6 K/mm3 (0.1-1.0); Monocytes % 5.4 % (1.7-9.3); Neutrophils # 6.8 K/mm3 (1.8-7.8); Platelet Count 235 K/mm3 (142-424); Red Blood Count 3.97 M/mm3 (4.20-5.40); Red Cell Distribution Width 12.8 % (11.5-17.5); White Blood Count 10.3 K/mm3 (4.8-10.8)
[2021-08-25 10:50] LABS: Chloride 108 mmol/L (98-107); Potassium 3.4 mmoL/L (3.5-5.1); Sodium 137 mmol/L (136-145)
[2021-08-25 10:53] LABS: Anion Gap 8.4 mEq/L (5-15); Blood Urea Nitrogen 3 mg/dl (7-17); Calcium 8.8 mg/dl (8.4-10.2); Carbon Dioxide 24 mmol/L (22.0-30.0); Estimated Glomerular Filt Rate 143 ml/min (>60); GFR (African American) 173 ML/MIN (>60); Glucose 80 mg/dl (74-100)
== END ==
PROVIDERS: Visit Provider Nurse Practitioner Obstetrics & Gynecology
DX: Z01.818 Encounter for other preprocedural examination (principal); Z34.90 Encounter for supervision of normal pregnancy, unspecified, unspecified trimester
CPT/HCPCS: 36415; 80048; 85025; C9803; U0003; U0005

== ENCOUNTER 2021-08-27 05:19 | Inpatient (IN) | payer OTHER, SELFPAY ==
[2021-08-27 05:26] VITALS: BP 112/76; PULSE 76; RESP 18; TEMP 36.9; O2SAT 99; BMI 22.8
[2021-08-27 06:15] LABS: Coronavirus 19, PCR Not Detected (NotDetected); Influenza A, PCR Not Detected (NotDetected); Influenza B, PCR Not Detected (NotDetected)
[2021-08-27 06:15] LABS: Microscopic, Urine URINE MICROSCOPIC (MICROSCOPIC)
[2021-08-27 06:27] LABS: Basophils # 0.1 K/mm3 (0-0.2); Basophils % 0.4 % (0.1-2.0); Eosinophils # 0.1 K/mm3 (0.0-0.4); Hematocrit 37.7 % (37.0-47.0); Hemoglobin 12.8 g/dL (12.2-16.2); Lymphocytes # 3.8 K/mm3 (0.7-4.5); Lymphocytes % 32.6 % (10-50); Mean Corpuscular HGB Conc 33.9 g/dL (31.8-35.4); Mean Corpuscular Hemoglobin 33.4 pg (27.0-31.2); Mean Corpuscular Volume 98.7 fl (81-99); Mean Platelet Volume 8.6 fl (7.4-10.4); Monocytes # 0.8 K/mm3 (0.1-1.0); Monocytes % 6.7 % (1.7-9.3); Neutrophils # 6.9 K/mm3 (1.8-7.8); Neutrophils % 59.4 % (37.0-80.0); Platelet Count 247 K/mm3 (142-424); Red Blood Count 3.82 M/mm3 (4.20-5.40); Red Cell Distribution Width 13.3 % (11.5-17.5); White Blood Count 11.7 K/mm3 (4.8-10.8)
[2021-08-27 06:35] LABS: Appearance,Urine CLEAR (Clear); Bilirubin,Urine Negative (Negative); Blood, Urine Negative (Negative); Color,Urine YELLOW (Yellow); Glucose,Urine (UA) Negative (Negative); Ketones,Urine Negative (Negative); Leukocyte Esterase,Urine Negative (Negative); Nitrate,Urine Negative (Negative); Protein,Urine Negative (Negative); Urobilinogen,Urine 0.2 EU/dl (0.2)
[2021-08-27 06:45] LABS: Barbiturates Screen,Urine Negative ng/ml (<200)
[2021-08-27 06:46] LABS: Amphetamine/Metha Screen,Urine Negative ng/ml (<1000); Benzodiazepines Screen,Urine Negative ng/ml (<200)
[2021-08-27 06:48] LABS: Cocaine Screen,Urine Negative ng/ml (<300); Methadone Screen,Urine Negative ng/ml (<300)
[2021-08-27 06:49] LABS: Cannabinoid Screen,Urine Negative ng/ml (<50)
[2021-08-27 06:50] LABS: Opiate Screen,Urine Negative ng/ml (<300); Phencyclidine Screen,Urine Negative ng/ml (<25)
[2021-08-27 07:12] LABS: Chloride 110 mmol/L (98-107); Potassium 3.8 mmoL/L (3.5-5.1); Sodium 138 mmol/L (136-145)
[2021-08-27 07:15] LABS: Anion Gap 8.8 mEq/L (5-15); Blood Urea Nitrogen 3 mg/dl (7-17); Calcium 8.4 mg/dl (8.4-10.2); Carbon Dioxide 23 mmol/L (22.0-30.0); Creatinine Clearance Estimated 131 mL/min (50-200); Estimated Glomerular Filt Rate 143 ml/min (>60); GFR (African American) 173 ML/MIN (>60); Glucose 73 mg/dl (74-100)
[2021-08-27 07:24] LABS: Coronavirus 19, PCR Detected (NotDetected); Influenza A, PCR Not Detected (NotDetected); Influenza B, PCR Not Detected (NotDetected)
--- NOTE | 2021-08-27 07:55 | HMH.PHAINT ---
MEDICATION RECONCILIATION COMPLETED ON PATIENT USING EXTERNAL FILL HISTORY FROM PHARMACY. -RAVEN VERDE, ANDRZEJD
[2021-08-27 08:45] VITALS: BP 106/74; PULSE 65; RESP 14; TEMP 36.1; O2SAT 97
--- NOTE | 2021-08-27 08:45 | HMH.OPNOTE ---
Date of procedure: 08/27/21 Pre-op Diagnosis:: Term , previous section, desire for sterilization, Covid positive Post-op Diagnosis:: Term , previous sections, desire for sterilization, Covid positive Procedure performed:: Repeat lower segment transverse section and bilateral salpingectomy, T AP block Surgeon:: Gregorio Moody MD Heater Operator Helper(s):: Tiara Quiroga HAND STRAIGHTENER:: Daryl Sanchez Anesthesia: spinal Estimated blood loss (mL): 600 Clinical Note:: She is a 31-year-old 5 now para 2 aborta 2 who was 39 and 4 weeks gestational age. She has had 2 previous section as and as result of that was offered repeat lower segment transverse section at term. She also expressed desire for sterilization. She tested positive for Covid yesterday this was confirmed with 2+ test. Operative findings:: She delivered a liveborn female child at 8:08 AM on the morning of 08/27/2021. Baby had Apgars of 8 at 1 min and 9 at 5 min. Baby weighed 6 lbs 3 oz. Ovaries and tubes appeared normal. Operative note:: She was taken to the operating room where spinal anesthesia was found be adequate. She was prepped and draped in normal sterile fashion in the supine position with a leftward tilt. A Borja catheter was in the bladder. A Pfannenstiel skin incision was made with knife then carried through to the underlying layer of fascia with cautery. The fascia was opened in the midline with cautery and extended laterally using Mendoza scissors. Po clamps were applied to the superior aspect of the fascial incision which was tented up and the underlying rectus muscles dissected off using cautery. The Po clamps were then applied to the inferior aspect of the fascial incision which in a similar fashion was tented up and the underlying rectus muscles dissected off using cautery. The rectus muscles were then in the midline, the peritoneum identified, and entered sharply with Metzenbaum scissors. This incision was then extended superiorly and inferiorly with cautery. We had good visualization of the bladder inferiorly. The bladder peritoneum was then opened in the midline and extended laterally using Metzenbaum scissors. A bladder flap was created digitally. Transverse incision was made through the uterine muscle to the amnion. This incision was then extended laterally using fingers traction. The amnion was entered sharply with knife. There was clear amniotic fluid. The infant's head was then delivered atraumatically. A loose nuchal cord was then reduced. This was followed by the anterior shoulder and the rest of the 's body atraumatically. The oropharynx and nasopharynx were bulb suctioned. The baby was vigorous so we allowed the cord to continue to pulsate for approximately 1 min. The cord was then doubly clamped and cut. The infant was then handed off to Dr. Bowers who assigned Apgars of 8 at 1 minute and 9 at 5 minutes. We then obtained cord blood. Using gentle traction on the cord and countertraction on the fundus I was able to easily deliver the placenta intact. It had a normal three-vessel cord. The uterus was then cleared of clots and debris . The uterine incision was then closed using running 0 Vicryl suture in a locked fashion. A second layer of the same suture was used to imbricate the first layer. The bladder peritoneum was then closed using running 2-0 Vicryl suture in a locked fashion. The gutters and cul-de-sac were then cleared of clots and debris . Once again hemostasis was assured. We then performed a bilateral salpingectomy. The uterus was then exteriorized from the abdominal cavity. The distal end of the tube was grasped with my fingers and using the endoseal I cut through the mesosalpinx. I then cut across the tube close to the cornua. This was similarly performed on the opposite side. Tubes were sent to pathology. After once again assuring hemostasis the uterus was then returned to the
--- NOTE | 2021-08-27 08:50 | P.PN_ITS ---
[facility] Anesthesia Checklist - Structural Data Admitted From: Inpatient Planned Operative Procedure/s: c section Consent for Planned Operative Procedure(s) Verified: Yes - Additional verifications Anesthesia Reactions: No Hx Blood Transfusions: No Blood Transfusion Reaction: No - Airway Assessment C-Spine Mobility Assessed: Yes TMJ Mobility Assessed: Yes Dentition: Good Dentition - Neurological Assessment Level of Consciousness: Awake, Alert, Appropriate - Anesthesia Plan Anesthesia Risk discussed: Yes Anesthesia Plan: Verified ASA Class: II Anesthesia Type: Spinal - Preoperative Comments Pre-Operative Comments: tap block exp to pt. pt agrees to proceed [facility] History I have reviewed the patient's past medical history: Yes 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: Reports:: Anxiety Denies:: Asthma, Cancer, Depression, Diabetes Mellitus Type 1, Diabetes M ellitus Type 2, MRSA, Seizures *Have you ever received a pneumonia vaccine?: No *Have you received a flu vaccine this season?: No Other 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: Denies: Blood Transfusion Reaction Anesthesia experience/problems:: none Other Surgeries: Yes: Amputation: No Fractures: No - *Social History Smoking Status: Former smoker Tobacco Type: cigarettes, e-cigarettes # Packs/Day (cigarettes): 1 Alcohol Intake: never Alcohol Intake Frequency:: other Substance Use Type: denies use *Occupational Status:: unemployed *Travel in the last 8 weeks: None - Psychiatric History Pschychiatric History:: Reports:: Anxiety Denies:: Depression Family Hx:: No significant family history LITIGATION PARALEGAL history: Spontaneous Para: 2
--- NOTE | 2021-08-27 08:51 | HMH.ANESI ---
[facility] [place] Anesthesia Record Part I Intake, IV Amount: 1,500 Estimated blood loss (mL): 600 Urine output (mL): 200 Blood Pressure: 106/74 SaO2: 96 Pulse Rate: 65 Respiratory Rate: 12 Temperature: 98 F Patient is:: Awake, Stable Stable to PACU at:: 08:45
[2021-08-27 08:52] VITALS: BP 106/74; PULSE 65; RESP 12; TEMP 36.6; O2SAT 96
--- NOTE | 2021-08-27 08:52 | HMH.OBAPHP ---
OB - H&P: HPI Antepartum - History of Present Illness Chief complaint: Term , previous section, desire for sterilization, Covid History of present illness: She is a 31-year-old 5 para 2 aborta 2 at 39+4 weeks gestational age who is had 2 previous sections. She also expressed desire for sterilization. The risks and benefits of surgery were discussed with the patient prior to her surgery. We discussed the irreversibility of bilateral salpingectomy. She also has tested positive for Covid the day prior to her admission. - History of Present Criteria for establishing EDC:: LMP confirmed by 1st trimester US care: good care Ultrasounds: normal 1st trimester US, normal mid trimester US Obstetrical complications: previous - Labs Blood type: O (+) positive Rubella: immune RPR/VDRL: nonreactive GBS status: positive HBsAG: negative [facility] History I have reviewed the patient's past medical history: Yes 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: Reports:: Anxiety Denies:: Asthma, Cancer, Depression, Diabetes Mellitus Type 1, Diabetes Mellitus Type 2, MRSA, Seizures *Have you ever received a pneumonia vaccine?: No *Have you received a flu vaccine this season?: No Other 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: Denies: Blood Transfusion Reaction Anesthesia experience/problems:: none Other Surgeries: Yes: Amputation: No Fractures: No - *Social History Smoking Status: Former smoker Tobacco Type: cigarettes, e-cigarettes # Packs/Day (cigarettes): 1 Alcohol Intake: never Alcohol Intake Frequency:: other Substance Use Type: denies use *Occupational Status:: unemployed *Travel in the last 8 weeks: None - Psychiatric History Pschychiatric History:: Reports:: Anxiety Denies:: Depression Family Hx:: No significant family history 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 Review of Systems - Review of Systems Review of systems:: pertinent systems reviewed and negative unless documented below Meds Home Medications Medication Instructions Recorded Confirmed Type omeprazole 40 mg capsule,delayed 40 mg PO DAILY cap 07/04/20 08/27/21 History release vits no.130-ferrous fum 1 tab PO DAILY tab 01/24/21 08/27/21 History 27 mg iron-folic acid 800 mcg tablet Loratadine [Claritin 10mg 10 mg PO DAILY 08/27/21 08/27/21 History Tablet] Allergies Allergy/AdvReac Type Severity Reaction Status Date / Time nitrofurantoin Allergy Intermediate Hives Verified 08/18/21 09:18 [From Macrobid] Penicillins [PENICILLINS] Allergy Unknown Unknown Verified 08/18/21 09:18 allergy reaction Sulfa (Sulfonamide Allergy Unknown Unknown Verified 08/18/21 09:18 Antibiotics) allergy [SULFA (SULFONAMIDE reaction ANTIBIOTICS)] codeine Allergy Unknown Verified 08/18/21 09:18 allergy reaction OB - H&P: Exam - Physical Exam Vital signs: Temp Pulse Resp BP Pulse Ox 98.5 F 76 18 112/76 99 08/27/21 05:26 08/27/21 05:26 08/27/21 05:26 08/27/21 05:26 08/27/21 05:26 - Constitutional no acute distress - Routine HEENT Exam Head: Present: normocephalic Eye: Present: EOMI, PERRL ENT: Present: mucous membranes moist - Routine Neck Exam Present: supple, full ROM - Routine Respiratory Exam Absent: accessory muscle use (good air entry bilaterally), respiratory distress, wheezes, crackles - Routine Cardiovascular Exam Present: RRR. Absent: murmur - Routine Abdominal Exam Present: soft, normoactive bowel sounds. Absent: tenderness, distended, guarding - Routine Rectal Exam Patient deferred: visual exam, digital exam - Routine Exam Patient deferred: external exam, groin exam, perineal exam - Routine Extremities Exam Present: full ROM. Absent: cyanosis, edema - Routine Skin Exam Present: intact. Absent: cyanosis - Routine Neurological Exam Present: alert, oriented X3 - Routine Psychiatric Exam Present: normal af
[2021-08-27 08:55] VITALS: BP 114/72; PULSE 68; RESP 14; O2SAT 97
[2021-08-27 09:05] VITALS: BP 104/71; PULSE 72; RESP 14; O2SAT 100
[2021-08-27 09:15] VITALS: BP 109/73; PULSE 70; RESP 14; TEMP 36.2; O2SAT 100
--- NOTE | 2021-08-27 09:30 | SUR.PHASEI ---
0914- detailed report called to collin jama on OB floor at this time. 0916- pt left in stable condition on OB floor at this time.
[2021-08-27 16:06] LABS: Microscopic,Cath URINE MICROSCOPIC (MICROSCOPIC)
[2021-08-27 16:13] LABS: Appearance,Urine/Cath CLEAR (Clear); Bilirubin,Cath Negative (Negative); Blood, Urine/Cath Negative (Negative); Color,Urine/Cath YELLOW (Yellow); Glucose,Urine/Cath (UA) Negative (Negative); Ketones,Urine/Cath Negative (Negative); Leukocyte Esterase,Cath Negative (Negative); Nitrate,Cath Negative (Negative); Protein,Urine/Cath Negative (Negative); Specific Gravity, Urine/Cath 1.015 (1.005-1.030); Urobilinogen,Cath 0.2 EU/dl (0.2)
[2021-08-28 01:11] VITALS: RESP 18
[2021-08-28 04:19] VITALS: RESP 18
[2021-08-28 06:13] LABS: Hematocrit 30.8 % (37.0-47.0)
[2021-08-28 06:24] LABS: Hemoglobin 10.8 g/dL (12.2-16.2)
--- NOTE | 2021-08-28 09:26 | HMH.ACPN2 ---
Internal Medicine - PN: Subj *Date: 08/28/21 *Time: 09:26 Interval history: POD #1 repeat c section no complaints denies shortness of breath with covid infection tolerating regular diet ambuating and voiding without difficulty asymptomatic with anemia Exam Vital signs and Labs for Last 24 Hours: Temp Pulse Resp BP Pulse Ox 97.1 F L 70 18 109/73 L 100 08/27/21 09:15 08/27/21 09:15 08/28/21 04:19 08/27/21 09:15 08/27/21 09:15 Laboratory Results - last 24 hr 08/27/21 07:50: Urine Color Yellow, Urine Appearance Clear, Urine pH 6.0, Ur Specific [place] 1.015, Urine Protein Negative, Urine Glucose (UA) Negative, Urine Ketones Negative, Urine Blood Negative, Urine Nitrate Negative, Urine Bilirubin Negative, Urine Urobilinogen 0.2, Ur Leukocyte Esterase Negative, Urine RBC None, Urine WBC None, Ur Squamous Epith Cells None, Urine Bacteria None 08/28/21 05:40: Hgb 10.8 L D, Hct 30.8 L I & O for Last 24 hours: Intake & Output 08/25/21 08/26/21 08/27/21 08/28/21 11:59 11:59 11:59 11:59 Intake Total 1500 / 1500 Balance 1500 / 1500 Weight 113 lb Narrative: CONSTITUTIONAL: no acute distress HEENT: mucous membranes moist PULMONARY: breathing unlabored without audible wheezes CV: no tachycardia or visible JVD; normal LE peripheral pulses ABD: soft, ND; appropriately tender but no rebound/guarding : fundus firm at/below umbilicus SKIN: incision well approximated with no drainage, erythema or induration EXT: 1+ edema LEs NEURO: alert/oriented, no altered mental status PSYCH: appropriate mood and demeanor Assessment and Plan (1) Previous section complicating , with delivery Status: Acute Category: Surgical Code(s): O34.219 - Maternal care for unspecified type scar from previous delivery (2) Encounter for female sterilization procedure Status: Acute Category: Medical Code(s): Z30.2 - Encounter for sterilization (3) COVID-19 affecting , antepartum Status: Acute Category: Medical Code(s): O98.519 - Other viral diseases complicating , unspecified trimester; U07.1 - COVID-19 (4) Anemia due to acute blood loss Status: Acute Category: Medical Code(s): D62 - Acute posthemorrhagic anemia - Assessment and plan all Dx Assessment and Plan for all problems:: routine postop/ care anticipate discharge home tomorrow
--- NOTE | 2021-08-29 08:54 | HMH.OBDCSM ---
General - General Admission date:: 08/27/21 Discharge date: 08/29/21 HPI - History of Present Illness History of present illness: She is a 31-year-old 5 now para 3 aborta 2 who was 39 and 4 weeks gestational age. She is had 2 previous sections and as result of that was offered repeat lower segment transverse section at term. She also expressed desire for sterilization and was admitted for bilateral salpingectomy as well. Hospital Course Hospital Course: On August 27, 2021 she underwent a repeat lower segment transverse section and bilateral salpingectomy. She has done well and has remained afebrile throughout her hospitalization. She is eating and drinking and ambulating. She is breast-feeding. Her lochia is normal. She was group B streptococcus positive. She has O+ blood, she is rubella immune and was group B streptococcus positive. Her microbiology manager is Dr. Bowers. She did have a T AP block and has done very well with this. She has not taken many narcotics. She is discharged home to follow-up with me in approximately 2 weeks time. She was given the usual instructions with respect to limiting her activity, driving and sexual activity. She was given instructions with respect to wound care. She was given a prescription for Percocet 5/325 number 12 tablets she will continue with her vitamins and iron. Her condition on discharge is stable and improved. Rhogam Administration: Not Indicated Objective Vital signs: Temp Pulse Resp BP Pulse Ox 97.1 F L 70 18 109/73 L 100 08/27/21 09:15 08/27/21 09:15 08/28/21 04:19 08/27/21 09:15 08/27/21 09:15 no acute distress - *Routine HEENT Exam Head: Present: normocephalic Eye: Present: EOMI, PERRL ENT: Present: mucous membranes moist DS: Diagnosis - Discharge Diagnosis (1) Previous section complicating , with delivery Status: Acute (2) Encounter for female sterilization procedure Status: Acute (3) COVID-19 affecting , antepartum Status: Acute (4) Anemia due to acute blood loss Status: Acute (5) Mother positive for group B Streptococcus colonization Status: Acute Discharge Plan - Patient Discharge Instructions ACTIVITY: No heavy lifting DIET: continue same diet Additional Instructions: *Nothing in the Vagina for 6 weeks* *No heavy lifting* *No strenuous activity.* Patient Instructions: Depression, Hemorrhage, DI for , DI for Pre-eclampsia, DI for COVID-19 (Suspected or Confirmed ), [facility] Post Discharge Instructions - Follow up Plan Follow up with: Gregorio Moody MD [Staff Physician] - Disposition: Home, Self-Care Condition at discharge:: Stable Home Medications: Home Medications Medication Instructions Recorded Confirmed Type omeprazole 40 mg capsule,delayed 40 mg PO DAILY cap 07/04/20 08/27/21 History release vits no.130-ferrous fum 1 tab PO DAILY tab 01/24/21 08/27/21 History 27 mg iron-folic acid 800 mcg tablet Loratadine [Claritin 10mg 10 mg PO DAILY 08/27/21 08/27/21 History Tablet] Oxycodone HCl/Acetaminophen 1 tab PO Q4-6H PRN #12 tab 08/29/21 Rx [Percocet 5/325mg tablet] Prescriptions/Medication Reconciliation: New Oxycodone HCl/Acetaminophen [Percocet 5/325mg tablet] 1 tab PO Q4-6H PRN #12 tab PRN Reason: Severe Pain Continued vits no.130-ferrous fum 27 mg iron-folic acid 800 mcg tablet 1 tab PO DAILY tab omeprazole 40 mg capsule,delayed release 40 mg PO DAILY cap Loratadine [Claritin 10mg Tablet] 10 mg PO DAILY - Problem Reconciliation Problems Reviewed?: Yes
--- NOTE | 2021-09-01 12:49 | HMH.ANESII ---
[facility] Anesthesia Record Part II Discharge Time: 09:15 Destination: Obstetric PACU nurse assessment reviewed?: Yes Patient Condition:: Good Anesthesia Complications:: None Swallowing reflex intact?: Yes Cyanosis?: No Blood Pressure: 109/73 Pulse Rate: 70 Temperature: 97.1 F Mental Status: Alert & Oriented Pain level:: 0 Nausea and/or vomitting:: None Intake, IV Amount: 0
[2021-09-01 12:50] VITALS: BP 109/73; PULSE 70; TEMP 36.2
== END 2021-08-29 11:30 | disposition home or self-care (01) | DRG 783 ==
PROVIDERS: Admitting Provider Nurse Practitioner Obstetrics & Gynecology; PCP Internal Medicine Adolescent Medicine; Visit Provider Nurse Practitioner Obstetrics & Gynecology
PROC: 10D00Z1 Extraction of Products of Conception, Low, Open Approach (ICD-10-PCS; CPT 59514; principal; 2021-08-27 07:30)
DX: O98.52 Other viral diseases complicating childbirth (principal); U07.1 COVID-19; Z3A.39 39 weeks gestation of pregnancy; Z37.0 Single live birth; O34.211 Maternal care for low transverse scar from previous cesarean delivery; N85.8 Other specified noninflammatory disorders of uterus; Z30.2 Encounter for sterilization; O69.81X0 Labor and delivery complicated by cord around neck, without compression, not applicable or unspecified
CPT/HCPCS: 59514; 58700; 36415; 59025; 80048; 80305; 81001; 85014; 85018; 85025; 86850; 88302; 94761; C9803; G0283; J1956; J2405; U0003; U0005

== ENCOUNTER → 2021-09-10 10:12 | Outpatient (CLI) | payer OTHER, SELFPAY ==
--- NOTE | 2021-09-10 10:15 | US_ITS ---
PROCEDURE: US EXTREMITY RT LIMITED CLINICAL INDICATION: MASTITIS,RT AXILLARY SWELLING COMPARISON: No exams were available for comparison FINDINGS: Ultrasound performed of the right axillary region demonstrated an area of heterogeneous echogenicity measuring 3 x 0.6 by 2.6 cm. The this is nonspecific and could represent developing an area of inflammation/infection. No obvious abscess. Small nodes are present in the right axilla as well. IMPRESSION: Palpable abnormality right axilla corresponds to an area of heterogeneous echogenicity measuring 3 x 2.6 x 0.6 cm and could represent an area of infection/inflammation without definite abscess. Suggest follow-up in 2-4 weeks to confirm resolution. Dictated by: Titus Medina MD 09/10/2021 13:05 Titus Medina MD in OV 09/10/2021 13:05
== END ==
PROVIDERS: PCP Internal Medicine Adolescent Medicine; Visit Provider Nurse Practitioner Family
DX: N61.0 Mastitis without abscess (principal); M79.89 Other specified soft tissue disorders
CPT/HCPCS: 76882

== ENCOUNTER → 2021-10-15 16:04 | Outpatient (CLI) | payer OTHER, SELFPAY | PROVIDERS: Visit Provider Nurse Practitioner Obstetrics & Gynecology | DX: Z39.2 Encounter for routine postpartum follow-up (principal); B96.20 Unspecified Escherichia coli [E. coli] as the cause of diseases classified elsewhere | CPT/HCPCS: 87086; 87088; 87186 ==

== ENCOUNTER 2022-05-26 11:15 | Emergency (ER) | payer OTHER, SELFPAY ==
[2022-05-26 11:40] VITALS: BP 113/70; PULSE 63; RESP 20; TEMP 36.8; O2SAT 100; BMI 22.6
--- NOTE | 2022-05-26 12:10 | EXP.UTC ---
Discharge Plan Disposition Patient Disposition: Home, Self-Care Condition: Good Prescriptions Prescriptions: New azithromycin [Zithromax Z-Kai] 250 mg tablet See Rx Instructions .ROUTE .COMPLEX 5 Days Qty: 6 0RF Rx Instructions: For 250 mg dose pack: take 500 mg today (day 1), then 250 mg for 4 days (days 2-5) No Action omeprazole 40 mg capsule,delayed release(DR/EC) 40 mg PO DAILY Label Comments: TAKE ONE CAPSULE BY MOUTH EVERY DAY nitrofurantoin monohyd/m-cryst [Macrobid] 100 mg capsule 100 mg PO BID 10 Days Qty: 20 0RF Rx Instructions: must administer with a meal/food phenazopyridine [Pyridium] 100 mg tablet 100 mg PO TID PRN (Reason: pain) 3 Days Qty: 9 0RF vit no.[id number] 27 mg iron- 800 mcg tablet 1 tab PO DAILY Qty: 30 3RF levofloxacin 500 mg tablet 500 mg PO DAILY 7 Days Qty: 7 0RF Referrals Follow up/Referrals: Avtar Marquis MD [Primary Care Provider] - See instructions Activity Restrictions/Add. Instructions Additional Instructions/Restrictions: *Monitor Temp, Over the counter Motrin or Tylenol as directed/as needed Tylenol every 4 hours and Motrin every 6 hours (as long as your family doctor has told you that you can take it) for fever or pain. and straight to ER if unable to lower temp less than 101.0 after medication given *Warm salt water gargles may help to soothe the throat *Throat Lozenges? *Warm fluids like tea with honey may help to soothe the throat? *Sleep elevated *Humidifier/Vaporizer Your throat swab was sent for culture. Those results are typically sent to your primary care. Be sure to follow up in 2-3 days with your family doctor/primary care physician if no improvement so they can review those result and treat if necessary. If you don?t have a primary care doctor, I recommend you get one but in the mean time, you will have to return to a walk in clinic Follow up IMMEDIATELY for new or worsening symptoms or no Noticeable improvement over the next 48-72 hours. 911 for difficulty breathing or swallowing You were tested for today for COVID19 your test result should be back in the next 24-48 hours, you may check your results on the [facility] My Health Portal Make sure to take your Vitamins Vit. C Vit D and Zinc if you can take them Clinical Impressions Clinical Impression: URI (upper respiratory infection) Instructions Patient Instructions: Sore Throat, DI for Sinusitis Discharge ED Provider: Katey Elliott [facility] [place] HPI General Stated complaint: drainage, sore throat Mode of Arrival: Ambulatory Source of Information: Patient Limitations: No Limitations Time Seen by Provider: 05/26/22 12:10 Description of Symptoms (Recalled from Triage Doc. by RN): PATIENT C/O COUGH, RUNNY NOSE, CONGESTION, SORE THROAT, AND GREEN SINUS DRAINAGE/MUCOUS X 3 DAYS HEENT Symptoms (Recalled from RN notes): Yes Resp Symptoms (Recalled from RN notes): Yes Skin Symptoms (Recalled from RN notes): No MS Symptoms (Recalled from RN notes): No Functional Status (Recalled from RN notes): WNL History of Present Illness Provider Complaint: Patient states that she has been having sinus congestion and pressure, cough, sore throat and headache States that she feels like she may have strep throat or sinus infection so she came in to get checked Related Data Home Medications Medication Instructions Recorded Confirmed omeprazole 40 mg capsule,delayed 40 mg PO DAILY GERD 07/04/20 10/03/21 release Previous Rx's Medication Instructions Recorded vits no.130-ferrous fum 1 tab PO DAILY Supplement #30 tabs 09/01/21 27 mg iron-folic acid 800 mcg tablet nitrofurantoin 100 mg PO BID 10 days #20 caps 10/15/21 monohydrate/macrocrystals 100 mg capsule (Macrobid) phenazopyridine 100 mg tablet 100 mg PO TID PRN pain 3 days #9 10/15/21 (Pyridium) tabs levofloxacin 500 mg tablet 500 mg PO DAILY 7 days #7 tabs 10/21/21 jeff
[2022-05-26 12:27] LABS: UTC Strep Screen (Rapid) Negative (Negative)
[2022-05-26 12:30] VITALS: BP 113/70; PULSE 63; RESP 20; TEMP 36.8; O2SAT 100
== END 2022-05-26 12:36 | disposition home or self-care (01) ==
PROVIDERS: Emergency Provider Nurse Practitioner; PCP Internal Medicine Adolescent Medicine
DX: J02.9 Acute pharyngitis, unspecified (principal); R09.81 Nasal congestion; R51.9 Headache, unspecified
CPT/HCPCS: 87880; 99212; G0463

== ENCOUNTER 2022-07-09 11:22 | Emergency (ER) | payer OTHER, SELFPAY ==
--- NOTE | 2022-07-09 12:03 | EXP.UTC ---
Discharge Plan Disposition Patient Disposition: Home, Self-Care Condition: Good Prescriptions Prescriptions: New benzonatate [benzonatate] 100 mg capsule 100 mg PO TIDP PRN (Reason: Cough) Qty: 30 0RF methylprednisolone 4 mg Tablets,Dose Pack 4 mg PO DIRECTED Qty: 21 0RF No Action omeprazole 40 mg capsule,delayed release(DR/EC) 40 mg PO DAILY Label Comments: TAKE ONE CAPSULE BY MOUTH EVERY DAY nitrofurantoin monohyd/m-cryst [Macrobid] 100 mg capsule 100 mg PO BID 10 Days Qty: 20 0RF Rx Instructions: must administer with a meal/food phenazopyridine [Pyridium] 100 mg tablet 100 mg PO TID PRN (Reason: pain) 3 Days Qty: 9 0RF vit no.[id number] 27 mg iron- 800 mcg tablet 1 tab PO DAILY Qty: 30 3RF levofloxacin 500 mg tablet 500 mg PO DAILY 7 Days Qty: 7 0RF azithromycin [Zithromax Z-Kai] 250 mg tablet See Rx Instructions .ROUTE .COMPLEX 5 Days Qty: 6 0RF Rx Instructions: For 250 mg dose pack: take 500 mg today (day 1), then 250 mg for 4 days (days 2-5) Referrals Follow up/Referrals: Avtar Marquis MD [Primary Care Provider] - See instructions Activity Restrictions/Add. Instructions Additional Instructions/Restrictions: Drink plenty of fluids. Take tylenol or ibuprofen for pain or fever. Take the medications as directed. Follow up with your regular doctor. GO TO THE ER FOR ANY WORSENING SYMPTOMS Quarantine until you know the results of your covid-19 test. Notify your school or workplace of your results and follow their instructions regarding return to work/school. Clinical Impressions Clinical Impression: Viral syndrome, Acute bronchitis Instructions Patient Instructions: DI for Acute Bronchitis, DI for Viral Syndrome Discharge ED Provider[place]lan[place] [facility] [place] General Stated complaint: Congestion, Cough, Sneezing, Drainage Time Seen by Provider: 07/09/22 12:02 History of Present Illness Provider Complaint: She states that for the past 5 days she has had sinus congestion, sore throat and an nonproductive cough. Related Data Home Medications Medication Instructions Recorded Confirmed omeprazole 40 mg capsule,delayed 40 mg PO DAILY GERD 07/04/20 10/03/21 release Previous Rx's Medication Instructions Recorded vits no.130-ferrous fum 1 tab PO DAILY Supplement #30 tabs 09/01/21 27 mg iron-folic acid 800 mcg tablet nitrofurantoin 100 mg PO BID 10 days #20 caps 10/15/21 monohydrate/macrocrystals 100 mg capsule (Macrobid) phenazopyridine 100 mg tablet 100 mg PO TID PRN pain 3 days #9 10/15/21 (Pyridium) tabs levofloxacin 500 mg tablet 500 mg PO DAILY 7 days #7 tabs 10/21/21 azithromycin 250 mg tablet See Rx Instructions PO .COMPLEX 5 05/26/22 (Zithromax Z-Kai) days #6 tabs benzonatate 100 mg capsule 100 mg PO TIDP PRN Cough #30 caps 07/09/22 methylprednisolone 4 mg tablets in 4 mg PO DIRECTED #21 tabs 07/09/22 a dose pack Allergies Allergy/AdvReac Type Severity Reaction Status Date / Time Penicillins [PENICILLINS] Allergy Unknown Unknown Verified 10/15/21 14:42 allergy reaction Sulfa (Sulfonamide Allergy Unknown Unknown Verified 10/15/21 14:42 Antibiotics) allergy [SULFA (SULFONAMIDE reaction ANTIBIOTICS)] codeine Allergy Unknown Verified 10/15/21 14:42 allergy reaction PFSH PFSH 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 Depression Hypertension affecting Urinary tract infection Surgical History History of section History of tubal ligation Social History Smoking Status: Former smoker alcohol intake: never substance use type: denies use current occupational status: unemployed Travel in the last 8 weeks: None ROS Obtained: Yes All systems reviewed & no additional compl
[2022-07-09 12:09] VITALS: BP 92/59; PULSE 88; RESP 18; TEMP 36.9; O2SAT 98; BMI 21.2
[2022-07-09 12:42] LABS: Adenovirus,PCR Not Detected (NotDetected); Bordetella Pertussis Not Detected (NotDetected); Chlamydophila Pneumoniae, PCR Not Detected (NotDetected); Coronavirus 19, PCR Not Detected (NotDetected); Coronavirus 229E Not Detected (NotDetected); Coronavirus NL63 Not Detected (NotDetected); Coronavirus OC43 Not Detected (NotDetected); Coronovirus HKU1,PCR Not Detected (NotDetected); Human Metapneumovirus Not Detected (NotDetected); Influenza A, PCR Not Detected (NotDetected); Influenza AH1, 2009 Not Detected (NotDetected); Influenza AH1, PCR Not Detected (NotDetected); Influenza AH3,PCR Not Detected (NotDetected); Influenza B, PCR Not Detected (NotDetected); Mycoplasma Pneumoniae, PCR Not Detected (NotDetected); Parainfluenza 1, PCR Not Detected (NotDetected); Parainfluenza 2, PCR Not Detected (NotDetected); Parainfluenza 3, PCR Not Detected (NotDetected); Parainfluenza 4, PCR Not Detected (NotDetected); Respiratory Syncytial Virus Not Detected (NotDetected)
[2022-07-09 12:43] LABS: UTC Strep Screen (Rapid) Negative (Negative)
[2022-07-09 12:49] VITALS: BP 95/60; PULSE 89; RESP 16; TEMP 36.9; O2SAT 99
[2022-07-09 16:30] LABS: Rhinovirus/Enterovirus Detected (NotDetected)
== END 2022-07-09 12:52 | disposition home or self-care (01) ==
PROVIDERS: Emergency Provider Nurse Practitioner Family; PCP Internal Medicine Adolescent Medicine
DX: J20.8 Acute bronchitis due to other specified organisms (principal)
CPT/HCPCS: 87581; 87632; 87798; 87880; 99212; C9803; G0463; U0003; U0005

== ENCOUNTER 2022-11-03 11:15 | Emergency (ER) | payer OTHER, SELFPAY ==
[2022-11-03 11:15] VITALS: BP 117/81; PULSE 96; RESP 20; TEMP 36.8; O2SAT 98; BMI 21.1
--- NOTE | 2022-11-03 12:12 | EXP.UTC ---
Discharge Plan Disposition Patient Disposition: Home, Self-Care Condition: Good Prescriptions Prescriptions: New azithromycin [Zithromax] 250 mg tablet 250 mg PO UD DOSE PK Qty: 6 0RF Rx Instructions: Take two (2) tablets today, then one (1) tablet days #2 thru #5 methylprednisolone 4 mg Tablets,Dose Pack 4 mg PO DIRECTED Qty: 21 0RF ondansetron 4 mg Tablet,Disintegrating 4 mg PO Q8H PRN (Reason: Nausea) Qty: 12 0RF No Action omeprazole 40 mg capsule,delayed release(DR/EC) 40 mg PO DAILY Label Comments: TAKE ONE CAPSULE BY MOUTH EVERY DAY Referrals Follow up/Referrals: Avtar Marquis MD [Primary Care Provider] - See instructions Activity Restrictions/Add. Instructions Additional Instructions/Restrictions: Drink plenty of fluids. Take tylenol or ibuprofen for pain or fever. Take the medications as directed. Follow up with your regular doctor. GO TO THE ER FOR ANY WORSENING SYMPTOMS Throw your tooth brush away and get a new one. Clinical Impressions Clinical Impression: Strep throat Stand Alone Forms Stand Alone Forms: Work/School Release Instructions Patient Instructions: DI for Strep Throat Discharge ED Provider: Desean Llanos [facility] General Stated complaint: Sore throat cough Time Seen by Provider: 11/03/22 12:12 History of Present Illness Provider Complaint: She states that for the past 2 days she has had a sore throat, low grade fever and chills. Related Data Home Medications Medication Instructions Recorded Confirmed omeprazole 40 mg capsule,delayed 40 mg PO DAILY GERD 07/04/20 11/03/22 release Previous Rx's Medication Instructions Recorded azithromycin 250 mg tablet 250 mg PO UD DOSE PK #6 tabs 11/03/22 (Zithromax) methylprednisolone 4 mg tablets in 4 mg PO DIRECTED #21 tabs 11/03/22 a dose pack ondansetron 4 mg disintegrating 4 mg PO Q8H PRN Nausea #12 tabs 11/03/22 tablet Allergies Allergy/AdvReac Type Severity Reaction Status Date / Time Penicillins [PENICILLINS] Allergy Unknown Unknown Verified 11/03/22 12:32 allergy reaction Sulfa (Sulfonamide Allergy Unknown Unknown Verified 11/03/22 12:32 Antibiotics) allergy [SULFA (SULFONAMIDE reaction ANTIBIOTICS)] codeine Allergy Unknown Verified 11/03/22 12:32 allergy reaction PFSH PFSH Disclaimer: The information contained in this section may have been updated after the patient was seen, as this information can be updated by other users. 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 Depression Hypertension affecting Urinary tract infection Surgical History History of section History of tubal ligation Social History Smoking Status: Former smoker alcohol intake: never substance use type: denies use current occupational status: unemployed Travel in the last 8 weeks: None ROS Obtained: Yes All systems reviewed & no additional complaints except as documented Constitutional Constitutional: Reports chills and Reports fever(s) Eyes Eyes: Denies eye discharge ENT Ears, Nose, Mouth, and Throat: Reports as per HPI Cardiovascular Cardiovascular: Denies chest pain Respiratory Respiratory: Denies chest congestion and Reports cough Gastrointestinal Gastrointestingal: Reports nausea; Denies abdominal pain, constipation, cramping, diarrhea or vomiting Musculoskeletal Musculoskeletal: Denies arthralgias Integumentary/Breasts Skin/Breast: Denies rash Neurologic Neurologic: Denies paresthesias Physical Exam General General appearance: alert and in no apparent distress Head Head exam: atraumatic, normocephalic and normal inspection Eye Eye exam: Present normal appearance, PERRL and EOMI ENT ENT exam: Present mucous membranes moist and normal external ear exam Expa
[2022-11-03 12:32] LABS: UTC Strep Screen (Rapid) Positive (Negative)
[2022-11-03 13:12] VITALS: BP 117/81; PULSE 96; RESP 20; TEMP 36.8; O2SAT 98
== END 2022-11-03 13:12 | disposition home or self-care (01) ==
PROVIDERS: Emergency Provider Nurse Practitioner Family; PCP Internal Medicine Adolescent Medicine
DX: J02.0 Streptococcal pharyngitis (principal)
CPT/HCPCS: 87880; 99212; 99213; G0463

== ENCOUNTER 2023-06-21 11:44 | Emergency (ER) | payer OTHER, SELFPAY ==
[2023-06-21 12:10] VITALS: BP 128/80; PULSE 93; RESP 19; TEMP 36.6; O2SAT 98
--- NOTE | 2023-06-21 12:27 | EXP.UTC ---
Discharge Plan Disposition Patient Disposition: Home, Self-Care Condition: Good Prescriptions Prescriptions: New methylprednisolone [Medrol (Kai)] 4 mg tablets,dose pack See Rx Instructions .Route .COMPLEX 6 Days Qty: 21 0RF Rx Instructions: taper pack; azithromycin [Zithromax Z-Kai] 250 mg tablet See Rx Instructions .ROUTE .COMPLEX 5 Days Qty: 6 0RF Rx Instructions: For 250 mg dose pack: take 500 mg today (day 1), then 250 mg for 4 days (days 2-5) No Action omeprazole 40 mg capsule,delayed release(DR/EC) 40 mg PO DAILY Patient Comments: TAKE ONE CAPSULE BY MOUTH EVERY DAY azithromycin [Zithromax] 250 mg tablet 250 mg PO UD DOSE PK Qty: 6 0RF Rx Instructions: Take two (2) tablets today, then one (1) tablet days #2 thru #5 methylprednisolone 4 mg Tablets,Dose Pack 4 mg PO DIRECTED Qty: 21 0RF ondansetron 4 mg Tablet,Disintegrating 4 mg PO Q8H PRN (Reason: Nausea) Qty: 12 0RF Referrals Follow up/Referrals: Avtar Marquis MD [Primary Care Provider] - See instructions Activity Restrictions/Add. Instructions Additional Instructions/Restrictions: *Monitor Temp, Over the counter Motrin or Tylenol as directed/as needed Tylenol every 4 hours and Motrin every 6 hours (as long as your family doctor has told you that you can take it) for fever or pain. and straight to ER if unable to lower temp less than 101.0 after medication given *Warm salt water gargles may help to soothe the throat *Throat Lozenges? *Warm fluids like tea with honey may help to soothe the throat? *Sleep elevated *Humidifier/Vaporizer Take medication as prescribed Your throat swab was sent for culture. Those results are typically sent to your primary care. Be sure to follow up in 2-3 days with your family doctor/primary care physician if no improvement so they can review those result and treat if necessary. If you don?t have a primary care doctor, I recommend you get one but in the mean time, you will have to return to a walk in clinic Follow up IMMEDIATELY for new or worsening symptoms or no Noticeable improvement over the next 48-72 hours. 911 for difficulty breathing or swallowing Clinical Impressions Clinical Impression: Otitis media Qualifiers: Otitis media type: unspecified Laterality: right Qualified Code(s): H66.91 - Otitis media, unspecified, right ear Instructions Patient Instructions: Middle Ear Infection, Ear Infections (Alternative Therapy) Discharge ED Provider: Katey Elliott [facility] HPI General Stated complaint: Rt ear pain, sore throat, drainage Mode of Arrival: Ambulatory Source of Information: Patient Limitations: No Limitations Time Seen by Provider: 06/21/23 12:27 Description of Symptoms (Recalled from Triage Doc. by RN): PATIENT C/O COUGH, RUNNY NOSE, CONGESTION, HEADACHE, EAR ACHE AND SORE THROAT X 2 WEEKS HEENT Symptoms (Recalled from RN notes): Yes Resp Symptoms (Recalled from RN notes): Yes Skin Symptoms (Recalled from RN notes): No MS Symptoms (Recalled from RN notes): No Functional Status (Recalled from RN notes): WNL History of Present Illness Provider Complaint: Patient states that she has been sick for about 2 weeks States that she has been having sore throat, pain in her right ear, runny nose and nasal congestion and today she was still not feeling well so she came in to get checked Related Data Home Medications Medication Instructions Recorded Confirmed omeprazole 40 mg capsule,delayed 40 mg PO DAILY GERD 07/04/20 11/03/22 release Previous Rx's Medication Instructions Recorded azithromycin 250 mg tablet 250 mg PO UD DOSE PK #6 tabs 11/03/22 (Zithromax) methylprednisolone 4 mg tablets in 4 mg PO DIRECTED #21 tabs 11/03/22 a dose pack ondansetron 4 mg disintegrating 4 mg PO Q8H PRN Nausea #12 tabs 11/03/22 tablet azithromycin 250 mg tablet See Rx Instructions PO .COMPLEX 5 06/21/23 (Zithr
[2023-06-21 12:36] VITALS: BP 128/80; PULSE 93; RESP 19; TEMP 36.6; O2SAT 98
[2023-06-21 12:38] LABS: UTC Strep Screen (Rapid) Negative (Negative)
== END 2023-06-21 12:56 | disposition home or self-care (01) ==
PROVIDERS: Emergency Provider Nurse Practitioner; PCP Internal Medicine Adolescent Medicine
DX: H66.91 Otitis media, unspecified, right ear (principal); R09.81 Nasal congestion; F32.A Depression, unspecified; Z87.891 Personal history of nicotine dependence
CPT/HCPCS: 87880; 99212; 99214; G0463

== ENCOUNTER → 2023-07-27 16:09 | Outpatient (CLI) | payer OTHER, SELFPAY ==
[2023-07-27 16:35] LABS: Basophils % 0.6 % (0.1-2.0); Eosinophils # 0.1 K/mm3 (0.0-0.4); Eosinophils % 1.8 % (0.1-12.0); Hematocrit 41.4 % (37.0-47.0); Hemoglobin 14.3 g/dL (12.2-16.2); Lymphocytes # 2.3 K/mm3 (0.7-4.5); Lymphocytes % 32.6 % (10-50); Mean Corpuscular HGB Conc 34.5 g/dL (31.8-35.4); Mean Corpuscular Hemoglobin 32.6 pg (27.0-31.2); Mean Corpuscular Volume 94.7 fl (81-99); Mean Platelet Volume 8.3 fl (7.4-10.4); Monocytes # 0.5 K/mm3 (0.1-1.0); Monocytes % 7.5 % (1.7-9.3); Neutrophils # 4.1 K/mm3 (1.8-7.8); Neutrophils % 57.6 % (37.0-80.0); Platelet Count 226 K/mm3 (142-424); Red Blood Count 4.38 M/mm3 (4.20-5.40); Red Cell Distribution Width 12.6 % (11.5-17.5); White Blood Count 7.1 K/mm3 (4.8-10.8)
[2023-07-27 16:45] LABS: Chloride 104 mmol/L (98-107); Potassium 3.6 mmoL/L (3.5-5.1); Sodium 139 mmol/L (136-145)
[2023-07-27 16:47] LABS: Alanine Aminotransferase 12 U/L (12-78); Aspartate Amino Transferase 17 U/L (14-36); Blood Urea Nitrogen 8 mg/dl (7-17); Estimated Glomerular Filt Rate 114 ml/min (>60); GFR (African American) 138 ML/MIN (>60)
[2023-07-27 16:48] LABS: Albumin Level 4.3 g/dl (3.5-5.0); Alkaline Phosphatase 85 U/L (38-126); Anion Gap 7.6 mEq/L (5-15); Bilirubin,Total < 0.1 mg/dl (0.2-1.3); Calcium 8.9 mg/dl (8.4-10.2); Carbon Dioxide 31 mmol/L (22.0-30.0); Globulin 2.1 g/dL (1.3-3.2); Glucose 109 mg/dl (74-100); Total Protein,Serum 6.4 g/dl (6.3-8.2)
== END ==
PROVIDERS: PCP Internal Medicine Adolescent Medicine; Visit Provider Physician Assistant
DX: R10.11 Right upper quadrant pain (principal)
CPT/HCPCS: 36415; 80053; 85025

== ENCOUNTER → 2023-07-29 10:08 | Outpatient (CLI) | payer OTHER, SELFPAY ==
--- NOTE | 2023-07-29 10:13 | US_ITS ---
FINAL REPORT CLINICAL HISTORY: RUQ PAIN COMPARISON: None FINDINGS: Sonographic images of the right upper quadrant were obtained. The pancreas is partially obscured.The liver has an unremarkable appearance. The gallbladder is incompletely distended, and has minimal sludge present. The gallbladder wall is mildly thickened measuring 4 mm. There is no evidence of biliary ductal dilatation.The common duct measures 4mm. Limited images of the right kidney are unremarkable. IMPRESSION: Gallbladder is incompletely distended, with very mild sludge and mild gallbladder wall thickening. The common duct is normal in size. Reviewed, Interpreted and Dictated by Darien Jung MD Transcribed by Glenna Santos Authenticated and [facility]
== END ==
PROVIDERS: PCP Internal Medicine Adolescent Medicine; Visit Provider Physician Assistant
DX: R10.11 Right upper quadrant pain (principal)
CPT/HCPCS: 76705

== ENCOUNTER 2023-08-25 11:31 | Emergency (ER) | payer OTHER, SELFPAY ==
[2023-08-25 12:20] VITALS: BP 95/63; PULSE 94; RESP 20; TEMP 36.9; O2SAT 97; BMI 20.9
--- NOTE | 2023-08-25 12:50 | EXP.UTC ---
Discharge Plan Disposition Patient Disposition: Home, Self-Care Condition: Good Prescriptions Prescriptions: No Action omeprazole 40 mg capsule,delayed release(DR/EC) 40 mg PO DAILY Patient Comments: TAKE ONE CAPSULE BY MOUTH EVERY DAY Referrals Follow up/Referrals: Avtar Marquis MD [Primary Care Provider] - See instructions Clinical Impressions Clinical Impression: Impacted cerumen of right ear Instructions Patient Instructions: Cerumen Impaction [facility] HPI General Stated complaint: Headache, earache Mode of Arrival: Ambulatory Source of Information: Patient Limitations: No Limitations Time Seen by Provider: 08/25/23 12:50 Description of Symptoms (Recalled from Triage Doc. by RN): PINON and right ear pain HEENT Symptoms (Recalled from RN notes): Yes Resp Symptoms (Recalled from RN notes): No Skin Symptoms (Recalled from RN notes): No MS Symptoms (Recalled from RN notes): No Functional Status (Recalled from RN notes): n/a History of Present Illness Provider Complaint: 33 yr old female presents for rt ear pain and pinon Related Data Home Medications Medication Instructions Recorded Confirmed omeprazole 40 mg capsule,delayed 40 mg PO DAILY GERD 07/04/20 11/03/22 release Allergies Allergy/AdvReac Type Severity Reaction Status Date / Time Penicillins [PENICILLINS] Allergy Unknown Unknown Verified 08/25/23 12:36 allergy reaction Sulfa (Sulfonamide Allergy Unknown Unknown Verified 08/25/23 12:36 Antibiotics) allergy [SULFA (SULFONAMIDE reaction ANTIBIOTICS)] codeine Allergy Unknown Verified 08/25/23 12:36 allergy reaction Worker's Comp Is this a Worker's Comp case?: No [facility] Disclaimer: The information contained in this section may have been updated after the patient was seen, as this information can be updated by other users. 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) Smoking Status: Former smoker tobacco type: cigarettes packs per day: 1 and e-cigarettes alcohol intake: never substance use type: denies use current occupational status: unemployed Travel in the last 8 weeks: None ROS Obtained: Yes All systems reviewed & no additional complaints except as documented Constitutional Constitutional: Reports system reviewed and no additional complaints, except as documented, Reports as per HPI and Reports headache(s) Eyes Eyes: Reports system reviewed and no additional complaints, except as documented ENT Ears, Nose, Mouth, and Throat: Reports system reviewed and no additional complaints, except as documented, Reports as per HPI and Reports headache(s) Cardiovascular Cardiovascular: Reports system reviewed and no additional complaints, except as documented Respiratory Respiratory: Reports system reviewed and no additional complaints, except as documented Gastrointestinal Gastrointestingal: Reports system reviewed and no additional complaints, except as documented Musculoskeletal Musculoskeletal: Reports system reviewed and no additional complaints, except as documented Integumentary/Breasts Skin/Breast: Reports system reviewed and no additional complaints, except as documented Neurologic Neurologic: Reports system reviewed and no additional complaints, except as documented, Reports as per HPI and Reports headache(s) Endocrine Endocrine: Reports system reviewed and no additional complaints, except as documented Hematologic/Lymphatic Henatologic/Lymphatic: Reports system reviewed and no additional complaints, except as documented Allergic/Immunologic Allergic/Immunologic: Reports system r
[2023-08-25 13:22] VITALS: BP 95/63; PULSE 94; RESP 18; TEMP 36.9; O2SAT 97
== END 2023-08-25 13:22 | disposition home or self-care (01) ==
PROVIDERS: Emergency Provider Nurse Practitioner Family; PCP Internal Medicine Adolescent Medicine
DX: H92.01 Otalgia, right ear (principal); H61.21 Impacted cerumen, right ear; R51.9 Headache, unspecified; Z87.891 Personal history of nicotine dependence
CPT/HCPCS: 99212; 99213; G0463

== ENCOUNTER 2023-11-23 20:13 | Emergency (ER) | payer OTHER, SELFPAY ==
--- NOTE | 2023-11-23 20:49 | ED_ITS ---
Discharge Plan Disposition Patient Disposition: Home, Self-Care Condition: Good Prescriptions Prescriptions: New cefdinir 300 mg capsule 300 mg PO BID 10 Days Qty: 20 0RF No Action omeprazole 40 mg capsule,delayed release(DR/EC) 40 mg PO DAILY Patient Comments: TAKE ONE CAPSULE BY MOUTH EVERY DAY Referrals Follow up/Referrals: Avtar Marquis MD [Primary Care Provider] - See instructions Clinical Impressions Clinical Impression: Upper respiratory infection Instructions Patient Instructions: DI for Neck Pain Discharge ED Provider: Tc Rosas General Adult HPI <ROSALIND Solis - Last Filed: 11/23/23 23:06> General Chief complaint: Neck Pain/Injury Stated complaint: sore throat, PINON neck pain Time Seen by Provider: 11/23/23 20:49 History of Present Illness HPI narrative: Patient presents for evaluation of sore throat headache and neck pain. Patient reports acute onset of malaise subjective fever headache and neck pain since yesterday. Patient denies cough shortness of breath hemoptysis hematochezia melena nausea vomiting diarrhea. Related Data Home Medications Medication Instructions Recorded Confirmed omeprazole 40 mg capsule,delayed 40 mg PO DAILY GERD 07/04/20 11/03/22 release Previous Rx's Medication Instructions Recorded cefdinir 300 mg capsule 300 mg PO BID 10 days #20 caps 11/23/23 Allergies Allergy/AdvReac Type Severity Reaction Status Date / Time Penicillins [PENICILLINS] Allergy Unknown Unknown Verified 08/25/23 12:36 allergy reaction Sulfa (Sulfonamide Allergy Unknown Unknown Verified 08/25/23 12:36 Antibiotics) allergy [SULFA (SULFONAMIDE reaction ANTIBIOTICS)] codeine Allergy Unknown Verified 08/25/23 12:36 allergy reaction PFSH <ROSALIND Solis - Last Filed: 11/23/23 23:06> [facility] Disclaimer: The information contained in this section may have been updated after the patient was seen, as this information can be updated by other users. 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) Smoking Status: Unknown if ever smoked alcohol intake: never substance use type: denies use current occupational status: unemployed Travel in the last 8 weeks: None <ROSALIND Solis - Last Filed: 11/23/23 23:06> ROS Obtained: Yes Systems reviewed as appropriate & no additional complaints except as documented Physical Exam <ROSALIND Solis - Last Filed: 11/23/23 23:06> General General appearance: alert and in no apparent distress Head Head exam: atraumatic and normocephalic Eye Eye exam: Present normal appearance and PERRL ENT ENT exam: Present normal exam, normal oropharynx, mucous membranes moist and other (Posterior pharynx shows no exudate is only slightly injected. There is no tonsillar erythema.) Neck Neck exam: Present normal inspection, full ROM, tenderness (Patient has slight tenderness to palpation over the bilateral cervical chains with some shotty lymph nodes) and lymphadenopathy Chest Chest inspection: Present normal inspection and symmetric chest wall rise Respiratory Respiratory exam: Present normal lung sounds bilaterally; Absent respiratory distress or wheezes Cardiovascular Cardiovascular exam: Present regular rate and normal rhythm Back Exam Back exam: Present normal inspection and full ROM Neurological Exam Neurological exam: Present alert and oriented X3 Psychiatric Psychiatric exam: Present normal affect and normal mood Skin Skin exam: Present warm, dry and intact Medical Decision Making <ROSALIND Solis - Last Filed: 11/23/23 23:06> Medical Records Medical records reviewed: Yes I reviewed the patient's medical records. Yazan Inquiry Pt receiving controlled substance: No Vital Signs: 11/23/23 21:06 11/23/23 22:00 11/23/23 22:30 Temperature 97.3 F L Temperature Source Oral Pulse Rate 65 51 L Pulse Rate [Right Brachial] 80 Respiratory Rate 18 18 20 Blood Pressure 112/75 96/70 L Blood Pressure [Right Arm] 126/63 Blood Pressure Mean 85 77 Blood Pressure Mean [Right Arm] 84 Blood Pressure Source Blood Pressure Source [Right Arm] Automatic Cuff Blood Pressure Position Blood Pressure Position [Right Arm] Sitting 02 Sat by Pulse Oximetry 97 98 98 Oxygen Delivery Method Room Air Room Air Room Air 11/23/23 23:02 11/23/23 23:40 Temperature 97.7 F Temperature Source Oral Pulse Rate 56 L 55 L Pulse Rate [Right Brachial] Respiratory Rate 20 Blood Pressure 110/76 100/70 L Blood Pressure [Right Arm] Blood Pressure Mean Blood Pressure Mean [Right Arm] Blood Pressure Source Automatic Cuff Blood Pressure Source [Right Arm] Blood Pressure Position Sitting Blood Pressure Position [Right Arm] 02 Sat by Pulse Oximetry 99 Oxygen Delivery Method Room Air Lab Data Lab results reviewed: Yes I reviewed the patient's lab results. Lab Results 11/23/23 21:47: SARS-CoV-2 (PCR) Not detected, Influenza A Untype (PCR) Not detected, Influenza Type B (PCR) Not detected Orders (Tests/Meds): ED MEDICATIONS Discontinued Medications Generic Name Dose Route Start Last Admin Trade Name Freq PRN Reason Stop Dose Admin Acetaminophen 1,000 mg 11/23/23 20:52 11/23/23 21:51 Acetaminophen 500mg Tab PO 11/23/23 20:53 1,000 mg ONCE ONE Administration ORDERS Category Date Time Status Rapid PCR Covid and Flu A/B Stat Lab 11/23/23 21:47 Completed Medical Decision Narrative: In summary patient is a 33-year-old female who presents to the emergency department for evaluation of fever cough sore throat. Patient is hemodynamically stable upon arrival, afebrile currently. Physical exam is remarkable for a slightly erythematous posterior pharynx however she does not have any exudate. Breath sounds are equal bilaterally with no adventitious sounds. Patient has shotty bilateral anterior cervical nodes. The remainder physical exam is nonfocal and unremarkable. Differential diagnosis includes viral versus bacterial upper respiratory tract infection. Initial workup will be conducted with rapid COVID and flu given the lack of exudate posterior pharynx. Initial interventions include Toradol Tylenol. Initial workup reviewed by me shows negative flu and COVID. Upon repeat evaluation patient reports some resolution of her symptoms.. Given this Prober for discharge home with a prescription for amoxicillin. <Tc Rosas, DO - Last Filed: 11/24/23 15:31> Vital Signs: 11/23/23 21:06 11/23/23 22:00 11/23/23 22:30 Temperature 97.3 F L Temperature Source Oral Pulse Rate 65 51 L Pulse Rate [Right Brachial] 80 Respiratory Rate 18 18 20 Blood Pressure 112/75 96/70 L Blood Pressure [Right Arm] 126/63 Blood Pressure Mean 85 77 Blood Pressure Mean [Right Arm] 84 Blood Pressure Source Blood Pressure Source [Right Arm] Automatic Cuff Blood Pressure Position Blood Pressure Position [Right Arm] Sitting 02 Sat by Pulse Oximetry 97 98 98 Oxygen Delivery Method Room Air Room Air Room Air 11/23/23 23:02 11/23/23 23:40 Temperature 97.7 F Temperature Source Oral Pulse Rate 56 L 55 L Pulse Rate [Right Brachial] Respiratory Rate 20 Blood Pressure 110/76 100/70 L Blood Pressure [Right Arm] Blood Pressure Mean Blood Pressure Mean [Right Arm] Blood Pressure Source Automatic Cuff Blood Pressure Source [Right Arm] Blood Pressure Position Sitting Blood Pressure Position [Right Arm] 02 Sat by Pulse Oximetry 99 Oxygen Delivery Method Room Air Lab Data Lab Results 11/23/23 21:47: SARS-CoV-2 (PCR) Not detected, Influenza A Untype (PCR) Not detected, Influenza Type B (PCR) Not detected Orders (Tests/Meds): ED MEDICATIONS Discontinued Medications Generic Name Dose Route Start Last Admin Trade Name Freq PRN Reason Stop Dose Admin Acetaminophen 1,000 mg 11/23/23 20:52 11/23/23 21:51 Acetaminophen 500mg Tab PO 11/23/23 20:53 1,000 mg ONCE ONE Administration ORDERS Category Date Time Status Rapid PCR Covid and Flu A/B Stat Lab 11/23/23 21:47 Completed Medical Decision Narrative: In summary patient is a 33-year-old female who presents to the emergency department for evaluation of fever cough sore throat. Patient is hemodynamically stable upon arrival, afebrile currently. Physical exam is remarkable for a slightly erythematous posterior pharynx however she does not have any exudate. Breath sounds are equal bilaterally with no adventitious sounds. Patient has shotty bilateral anterior cervical nodes. The remainder physical exam is nonfocal and unremarkable. Differential diagnosis includes viral versus bacterial upper respiratory tract infection. Initial workup will be conducted with rapid COVID and flu given the lack of exudate posterior pharynx. Initial interventions include Toradol Tylenol. Initial workup reviewed by me shows negative flu and COVID. Upon repeat evaluation patient reports some resolution of her symptoms.. Given this Proper for discharge home with a prescription for amoxicillin. I was consulted by the BARBY, and we discussed the complexity of the problems being addressed. I approved the treatment and management plan for this patient's care in the Emergency Department, thus performing a substantive portion of the medical decision making. Tc Rosas, DO Critical Care <ROSALIND Solis - Last Filed: 11/23/23 23:06> Critical Care Time Critical Care Time: No
[2023-11-23 21:06] VITALS: BP 126/63; PULSE 80; RESP 18; TEMP 36.3; O2SAT 97; BMI 21.2
[2023-11-23] MEDS: ACETAMINOPHEN 500MG TAB 1000 MG PO (21:51)
[2023-11-23 22:00] VITALS: BP 112/75; PULSE 65; RESP 18; O2SAT 98
[2023-11-23 22:01] LABS: Coronavirus 19, PCR Not Detected (NotDetected); Influenza A, PCR Not Detected (NotDetected); Influenza B, PCR Not Detected (NotDetected)
[2023-11-23 22:30] VITALS: BP 96/70; PULSE 51; RESP 20; O2SAT 98
[2023-11-23 23:02] VITALS: BP 110/76; PULSE 56; O2SAT 99
[2023-11-23 23:40] VITALS: BP 100/70; PULSE 55; RESP 20; TEMP 36.5; O2SAT 99
== END 2023-11-23 23:42 | disposition home or self-care (01) ==
PROVIDERS: Physician Assistant; Emergency Provider Emergency Medicine; PCP Internal Medicine Adolescent Medicine
DX: J06.9 Acute upper respiratory infection, unspecified (principal); R51.9 Headache, unspecified; M54.2 Cervicalgia; R07.0 Pain in throat; R50.9 Fever, unspecified
CPT/HCPCS: 87636; 99283

== ENCOUNTER 2023-11-25 22:17 | Emergency (ER) | payer OTHER, SELFPAY ==
[2023-11-25 22:18] VITALS: BP 118/68; PULSE 54; RESP 16; TEMP 36.9; O2SAT 100; BMI 21.2
--- NOTE | 2023-11-25 22:35 | HMH.EDGENADL ---
Discharge Plan Disposition Patient Disposition: Home, Self-Care Prescriptions Prescriptions: No Action omeprazole 40 mg capsule,delayed release(DR/EC) 40 mg PO DAILY Patient Comments: TAKE ONE CAPSULE BY MOUTH EVERY DAY cefdinir 300 mg capsule 300 mg PO BID 10 Days Qty: 20 0RF Referrals Follow up/Referrals: Nilesh Mayo DO [Staff Physician] - See instructions Avtar Marquis MD [Primary Care Provider] - See instructions Activity Restrictions/Add. Instructions Additional Instructions/Restrictions: You were evaluated in the emergency department today. Please follow-up with your primary care provider over the next 3 days. Return to the emergency department for new or worsening symptoms. Clinical Impressions Clinical Impression: Headache, Pharyngitis, Neck pain, Depression Stand Alone Forms Stand Alone Forms: Work/School Release Instructions Patient Instructions: DI for Hormonal and Tension Headaches, DI for Headache Discharge ED Provider: Gabbie Shabazz General Adult HPI <J Natalio Montero MD - Last Filed: 11/25/23 22:54> General Chief complaint: Upper Respiratory Infection Stated complaint: poss allergic reaction Time Seen by Provider: 11/25/23 22:20 History of Present Illness HPI narrative: Patient is a 33-year-old female here with multiple complaints. She was here few days ago for cough sore throat diarrhea she was swabbed for COVID and flu which were negative and she was given cefdinir for possible bacterial pharyngitis. She states over the last few days she has had increasing neck discomfort as well as headache. Of note she has had a worsening headache every single day over the last month. Leading up to that she has had intermittent headaches but nothing as persistent as she had over the last month. She has had some photophobia no fevers no significant neck stiffness. No neurologic symptoms including numbness weakness tingling in her arms or legs changes in coordination vision etc. 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 Mother is at the bedside and is very helpful and believes that she is dealing with severe anxiety and stress and depression associated with this. Patient has had no neuroimaging in the past. She is not on any antidepressants or anxiolytics. She does not have a primary care doctor at the moment. Related Data Home Medications Medication Instructions Recorded Confirmed omeprazole 40 mg capsule,delayed 40 mg PO DAILY GERD 07/04/20 11/03/22 release Previous Rx's Medication Instructions Recorded cefdinir 300 mg capsule 300 mg PO BID 10 days #20 caps 11/23/23 Allergies Allergy/AdvReac Type Severity Reaction Status Date / Time Penicillins [PENICILLINS] Allergy Unknown Unknown Verified 08/25/23 12:36 allergy reaction Sulfa (Sulfonamide Allergy Unknown Unknown Verified 08/25/23 12:36 Antibiotics) allergy [SULFA (SULFONAMIDE reaction ANTIBIOTICS)] codeine Allergy Unknown Verified 08/25/23 12:36 allergy reaction <ROSALIND Solis - Last Filed: > General Mode of Arrival: Ambulatory Source of Information: Patient Limitations: No Limitations Description of Symptoms (Recalled from ER Triage Doc. by RN): pt c/o SOB and sore throat and throat feeling tight since yesterday morning. pt recently seen in er and given cefdinir. 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 <Zulma Montero MD - Last Filed: 11/25/23 22:54> ROS Obtained: Yes All systems reviewed & no additional complaints except as documented Physical Exam <Zulma Montero MD - Last Filed: 11/25/23 22:54> General General appearance: anxious (Tearful) ENT ENT exam: Present normal exam and normal oropharynx Neck Neck exam: Present normal inspection and full ROM; Absent tenderness or meningismus Respiratory Respiratory exam: Present normal lung sounds bilaterally; Absent respiratory distress Cardiovascular Cardiovascular exam: Present regular rate and normal rhythm Abdominal Exam Abdominal exam: Present soft; Absent distention or tenderness Neurological Exam Neurological exam: Present alert, oriented X3 and CN II-XII intact; Absent motor sensory deficit Medical Decision Making <Zulma Montero MD - Last Filed: 11/25/23 22:54> Yazan Mai Pt receiving controlled substance: No Vital Signs: 11/25/23 22:18 Temperature 98.4 F Temperature Source Oral Pulse Rate [Right] 54 L Respiratory Rate 16 Blood Pressure [Right Arm] 118/68 Blood Pressure Mean [Right Arm] 84 02 Sat by Pulse Oximetry 100 Lab Data Lab Results 11/25/23 23:27: Group A Strep Rapid Negative Orders (Tests/Meds): ED MEDICATIONS Discontinued Medications Generic Name Dose Route Start Last Admin Trade Name Freq PRN Reason Stop Dose Admin Diphenhydramine HCl 25 mg 11/25/23 22:40 11/25/23 22:49 Diphenhydramine 50mg/Ml Vial IV 11/25/23 22:41 25 mg ONCE ONE Administration Lactated Ringer's 1,000 mls @ 999 mls/hr 11/25/23 22:45 11/25/23 22:47 Lactated Ringer's 1000 Ml Bag IV 11/25/23 23:45 999 mls/hr .Q1H1M GUERA Administration Ketorolac Tromethamine 15 mg 11/25/23 22:40 11/25/23 22:47 Ketorolac 30mg/Ml Vial IV 11/25/23 22:41 15 mg ONCE ONE Administration Prochlorperazine Edisylate 10 mg 11/25/23 22:40 11/25/23 22:48 Prochlorperazine 10mg/2ml Vial IV 11/25/23 22:41 10 mg ONCE ONE Administration ORDERS Category Date Time Status CT head/brain wo con Stat Cat Scan 11/25/23 22:40 Completed Strep Scrn Group A (Rapid) Stat Lab 11/25/23 23:27 Completed Strep Screen Confirmation Stat Micro 11/25/23 23:27 Received Medical Decision Narrative: Patient with above history. Will get a CT scan Noncon of her head given the fact that she has had new and worsening headaches and has had no neuroimaging during this episode. Its unlikely she has a space-occupying lesion with a normal neurologic exam but that certainly is on the differential. She has a normal oropharynx and neck exam I am not concerned for a peritonsillar abscess or retropharyngeal abscess. She has no masses no meningismus I am also not concerned about meningitis at the moment. I do agree this is most likely infectious in nature. She had a COVID and flu test a few days ago did not have a strep test done we will perform that today. Most likely this is viral. She also has superimposed significant depression and anxiety will advise her and encouraged her to follow-up with her primary care doctor to discuss pharmacologic intervention. She is not suicidal right now or having any homicidal ideation or audio or visual hallucinations. No psychological emergency at the moment. Also will give her a migraine cocktail with Toradol Compazine Benadryl and IV fluids and reassess. Care will be transitioned to Dr. Gabbie Shabazz at 11 PM. <Gabbie Shabazz, DO - Last Filed: 11/25/23 23:52> Vital Signs: 11/25/23 22:18 Temperature 98.4 F Temperature Source Oral Pulse Rate [Right] 54 L Respiratory Rate 16 Blood Pressure [Right Arm] 118/68 Blood Pressure Mean [Right Arm] 84 02 Sat by Pulse Oximetry 100 Lab Data Lab Results 11/25/23 23:27: Group A Strep Rapid Negative Orders (Tests/Meds): ED MEDICATIONS Discontinued Medications Generic Name Dose Route Start Last Admin Trade Name Freq PRN Reason Stop Dose Admin Diphenhydramine HCl 25 mg 11/25/23 22:40 11/25/23 22:49 Diphenhydramine 50mg/Ml Vial IV 11/25/23 22:41 25 mg ONCE ONE Administration Lactated Ringer's 1,000 mls @ 999 mls/hr 11/25/23 22:45 11/25/23 22:47 Lactated Ringer's 1000 Ml Bag IV 11/25/23 23:45 999 mls/hr .Q1H1M GUERA Administration Ketorolac Tromethamine 15 mg 11/25/23 22:40 11/25/23 22:47 Ketorolac 30mg/Ml Vial IV 11/25/23 22:41 15 mg ONCE ONE Administration Prochlorperazine Edisylate 10 mg 11/25/23 22:40 11/25/23 22:48 Prochlorperazine 10mg/2ml Vial IV 11/25/23 22:41 10 mg ONCE ONE Administration ORDERS Category Date Time Status CT head/brain wo con Stat Cat Scan 11/25/23 22:40 Completed Strep Scrn Group A (Rapid) Stat Lab 11/25/23 23:27 Completed Strep Screen Confirmation Stat Micro 11/25/23 23:27 Received Medical Decision Narrative: Patient with above history. Will get a CT scan Noncon of her head given the fact that she has had new and worsening headaches and has had no neuroimaging during this episode. Its unlikely she has a space-occupying lesion with a normal neurologic exam but that certainly is on the differential. She has a normal oropharynx and neck exam I am not concerned for a peritonsillar abscess or retropharyngeal abscess. She has no masses no meningismus I am also not concerned about meningitis at the moment. I do agree this is most likely infectious in nature. She had a COVID and flu test a few days ago did not have a strep test done we will perform that today. Most likely this is viral. She also has superimposed significant depression and anxiety will advise her and encouraged her to follow-up with her primary care doctor to discuss pharmacologic intervention. She is not suicidal right now or having any homicidal ideation or audio or visual hallucinations. No psychological emergency at the moment. Also will give her a migraine cocktail with Toradol Compazine Benadryl and IV fluids and reassess. Care will be transitioned to Dr. Gabbie Shabazz at 11 PM. Mele DO: On my assessment of the patient, she is feeling much better. She states that her headache is significantly improved. I independently interpreted CT scan prior to radiology read and noted no obvious acute masses, hemorrhage, or other concern. Strep swab came back negative. Given improvement in symptoms and reassuring exam and workup, I feel the patient is appropriate for discharge with close outpatient follow-up with her primary care provider. Strict return precautions were given and she was discharged in stable condition. <ROSALIND Solis - Last Filed: > Vital Signs: 11/25/23 22:18 Temperature 98.4 F Temperature Source Oral Pulse Rate [Right] 54 L Respiratory Rate 16 Blood Pressure [Right Arm] 118/68 Blood Pressure Mean [Right Arm] 84 02 Sat by Pulse Oximetry 100 Lab Data Lab Results 11/25/23 23:27: Group A Strep Rapid Negative Orders (Tests/Meds): ED MEDICATIONS Discontinued Medications Generic Name Dose Route Start Last Admin Trade Name Chelsea PRN Reason Stop Dose Admin Diphenhydramine HCl 25 mg 11/25/23 22:40 11/25/23 22:49 Diphenhydramine 50mg/Ml Vial IV 11/25/23 22:41 25 mg ONCE ONE Administration Lactated Ringer's 1,000 mls @ 999 mls/hr 11/25/23 22:45 11/25/23 22:47 Lactated Ringer's 1000 Ml Bag IV 11/25/23 23:45 999 mls/hr .Q1H1M GUERA Administration Ketorolac Tromethamine 15 mg 11/25/23 22:40 11/25/23 22:47 Ketorolac 30mg/Ml Vial IV 11/25/23 22:41 15 mg ONCE ONE Administration Prochlorperazine Edisylate 10 mg 11/25/23 22:40 11/25/23 22:48 Prochlorperazine 10mg/2ml Vial IV 11/25/23 22:41 10 mg ONCE ONE Administration ORDERS Category Date Time Status CT head/brain wo con Stat Cat Scan 11/25/23 22:40 Completed Strep Scrn Group A (Rapid) Stat Lab 11/25/23 23:27 Completed Strep Screen Confirmation Stat Micro 11/25/23 23:27 Received Critical Care <Zulma Montero MD - Last Filed: 11/25/23 22:54> Critical Care Time Critical Care Time: No
--- NOTE | 2023-11-25 22:40 | CT_ITS ---
PROCEDURE INFORMATION: Exam: CT Head Without Contrast Exam date and time: 11/25/2023 10:52 PM Age: 33 years old Clinical indication: Pain; Headache; Additional info: PINON x 1 month TECHNIQUE: Imaging protocol: Computed tomography of the head without contrast. Radiation optimization: All CT scans at this facility use at least one of these dose optimization techniques: automated exposure control; mA and/or kV adjustment per patient size (includes targeted exams where dose is matched to clinical indication); or iterative reconstruction. COMPARISON: No relevant prior studies available. FINDINGS: Brain: Normal. No hemorrhage. Unremarkable white matter. No mass effect. Cerebral ventricles: No ventriculomegaly. Paranasal sinuses: Visualized sinuses are unremarkable. No fluid levels. Mastoid air cells: Visualized mastoid air cells are well aerated. Bones/joints: Unremarkable. No acute fracture. Soft tissues: Unremarkable. IMPRESSION: No acute intracranial abnormality.
[2023-11-25] MEDS: KETOROLAC 30MG/ML VIAL 15 MG IV (22:47)
[2023-11-25] MEDS: LACTATED RINGERS 1000ML 1,000 ML 999 ML IV (22:47)
[2023-11-25] MEDS: PROCHLORPERAZINE 10MG/2ML VIAL 10 MG IV (22:48)
[2023-11-25] MEDS: diphenhydrAMINE 50MG/ML VIAL 25 MG IV (22:49)
[2023-11-25 23:40] LABS: Strep Scrn Group A (Rapid) Negative (Negative)
[2023-11-26 00:19] VITALS: BP 109/60; PULSE 57; RESP 18; TEMP 36.6; O2SAT 97
== END 2023-11-26 00:20 | disposition home or self-care (01) ==
PROVIDERS: Student in an Organized Health Care Education/Training Program; Emergency Provider Emergency Medicine; PCP Internal Medicine Adolescent Medicine
DX: R51.9 Headache, unspecified (principal); M54.2 Cervicalgia; J02.9 Acute pharyngitis, unspecified; F32.A Depression, unspecified; F17.210 Nicotine dependence, cigarettes, uncomplicated; F17.290 Nicotine dependence, other tobacco product, uncomplicated
CPT/HCPCS: 70450; 87430; 96361; 96374; 96375; 99285

== ENCOUNTER 2024-04-14 10:19 | Emergency (ER) | payer OTHER, SELFPAY ==
[2024-04-14 10:25] VITALS: BP 94/56; PULSE 83; RESP 20; TEMP 37; O2SAT 98; BMI 22.2
--- NOTE | 2024-04-14 10:56 | EXP.UTC ---
Discharge Plan Disposition Patient Disposition: Home, Self-Care Condition: Good Prescriptions Prescriptions: New azithromycin 500 mg tablet 500 mg PO DAILY 5 Days Qty: 5 0RF Referrals Follow up/Referrals: Avtar Marquis MD [Primary Care Provider] - See instructions Activity Restrictions/Add. Instructions Additional Instructions/Restrictions: If symptoms persist or worsen, return to clinic or follow up with pcp. Clinical Impressions Clinical Impression: Strep throat Instructions Patient Instructions: DI for Strep Throat Print Language Print Language: [place] Discharge ED Provider: Joan Ballard [facility] HPI General Stated complaint: headaches, sore throat, bloody noses Mode of Arrival: Ambulatory Source of Information: Patient Limitations: No Limitations Time Seen by Provider: 04/14/24 10:55 Description of Symptoms (Recalled from Triage Doc. by RN): PATIENT C/O HEADACHE, EAR ACHE, SORE THROAT, NASAL CONGESTION AND BLEEDING SINCE WEDNESDAY MORNING HEENT Symptoms (Recalled from RN notes): Yes Resp Symptoms (Recalled from RN notes): No Skin Symptoms (Recalled from RN notes): No MS Symptoms (Recalled from RN notes): No Functional Status (Recalled from RN notes): WNL History of Present Illness Provider Complaint: Pt reports having a sore throat, runny nose/congestion/bleeding, and headache since Wednesday. She denies taking anything for her symptoms. Related Data Previous Rx's ?Medication ?Instructions ?Recorded azithromycin 500 mg tablet 500 mg PO DAILY 5 days #5 tabs 04/14/24 Allergies Allergy/AdvReac Type Severity Reaction Status Date / Time Penicillins [PENICILLINS] Allergy Unknown Unknown Verified 08/25/23 12:36 allergy reaction Sulfa (Sulfonamide Allergy Unknown Unknown Verified 08/25/23 12:36 Antibiotics) allergy [SULFA (SULFONAMIDE reaction ANTIBIOTICS)] codeine Allergy Unknown Verified 08/25/23 12:36 allergy reaction Worker's Comp Is this a Worker's Comp case?: No [facility] Disclaimer: The information contained in this section may have been updated after the patient was seen, as this information can be updated by other users. 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) Smoking Status: Current every day smoker tobacco type: cigarettes packs per day: 1 and e-cigarettes alcohol intake: never substance use type: denies use current occupational status: unemployed Travel in the last 8 weeks: None ROS Obtained: Yes All systems reviewed & no additional complaints except as documented Constitutional Constitutional: Reports system reviewed and no additional complaints, except as documented, Reports headache(s) and Reports malaise Eyes Eyes: Reports system reviewed and no additional complaints, except as documented ENT Ears, Nose, Mouth, and Throat: Reports system reviewed and no additional complaints, except as documented, Reports epistaxis, Reports headache(s), Reports nasal congestion, Reports nasal discharge, Reports odynophagia and Reports sore throat Cardiovascular Cardiovascular: Reports system reviewed and no additional complaints, except as documented Respiratory Respiratory: Reports system reviewed and no additional complaints, except as documented Gastrointestinal Gastrointestingal: Reports system reviewed and no additional complaints, except as documented and odynophagia Genitourinary Female Genitourinary: Reports system reviewed and no additional complaints, except as documented Musculoskeletal Musculoskeletal: Reports system reviewed and no additional complaints, except as documented Neurologic Neurologic: Reports system reviewed and no additional complaints, except as documented and Reports headache(s) Endocrine Endocrine: Reports system reviewed and no additional complaints, except as documented Hematologic/Lymphatic Henatologic/Lymphatic: Reports system reviewed and no additional complaints, except as documented Allergic/Immunologic Allergic/Immunologic: Reports system reviewed and no additional complaints, except as documented Physical Exam General General appearance: alert and in no apparent distress Head Head exam: atraumatic and normocephalic Eye Eye exam: Present normal appearance Expanded ENT Exam External ear exam: Present normal external inspection Nose exam: Absent sinus tenderness Nasal speculum exam: Bilateral: other (clear drainage) Mouth exam: Present normal external inspection Teeth exam: Present normal inspection Throat exam: Present tonsillar erythema Neck Neck exam: Present normal inspection; Absent lymphadenopathy Chest Chest inspection: Present normal inspection and symmetric chest wall rise Respiratory Respiratory exam: Present normal lung sounds bilaterally Cardiovascular Cardiovascular exam: Present regular rate, normal rhythm and normal heart sounds Abdominal Exam Abdominal exam: Present soft and normal bowel sounds Extremities Exam Extremities exam: Present normal inspection Back Exam Back exam: Present normal inspection Neurological Exam Neurological exam: Present alert and oriented X3 Psychiatric Psychiatric exam: Present normal affect and normal mood Skin Skin exam: Present warm, dry and intact Lymphatic Lymphatic Findings: no adenopathy Medical Decision Making Yzaan Inquiry Pt receiving controlled substance: No Yazan was queried for this patient: No Vital Signs: 04/14/24 10:25 Temperature 98.6 F Temperature Source Oral Pulse Rate [Left Brachial] 83 Respiratory Rate 20 Blood Pressure [Left Arm] 94/56 L Blood Pressure Mean [Left Arm] 68 Blood Pressure Source [Left Arm] Automatic Cuff Blood Pressure Position [Left Arm] Sitting 02 Sat by Pulse Oximetry 98 Oxygen Delivery Method Room Air
[2024-04-14 10:58] LABS: UTC Strep Screen (Rapid) Negative (Negative)
[2024-04-14 11:03] VITALS: BP 94/56; PULSE 83; RESP 20; TEMP 37; O2SAT 98
== END 2024-04-14 11:06 | disposition home or self-care (01) ==
PROVIDERS: Emergency Provider Nurse Practitioner Family; PCP Internal Medicine Adolescent Medicine
DX: J02.0 Streptococcal pharyngitis (principal); R51.9 Headache, unspecified; R09.81 Nasal congestion
CPT/HCPCS: 87880; 99212; 99214; G0463

== ENCOUNTER 2024-06-06 16:24 | Outpatient (CLI) | payer OTHER, SELFPAY ==
[2024-06-06 18:28] LABS: HIV (1&2) Antibody Rapid NONREACTIVE (NONREACTIVE)
[2024-06-08 12:35] LABS: Rapid Plasma Reagin Ab Titer Non Reactive titer (NonRea<1:1)
[2024-06-09 05:12] LABS: HCV Ab Non Reactive (Non Reactive)
[2024-06-12 08:24] LABS: HSV-1 DNA Negative (Negative); HSV-2 DNA Negative (Negative)
== END 2024-06-06 23:59 | disposition home or self-care (01) ==
PROVIDERS: PCP Internal Medicine Adolescent Medicine; Visit Provider Nurse Practitioner Obstetrics & Gynecology
DX: A64 Unspecified sexually transmitted disease (principal)
CPT/HCPCS: 36415; 86593; 86803; 87389; 87529

== ENCOUNTER 2024-07-31 10:17 | Emergency (ER) | payer OTHER, SELFPAY ==
[2024-07-31 11:11] VITALS: BP 116/74; PULSE 74; RESP 18; TEMP 36.9; O2SAT 98; BMI 18.8
--- NOTE | 2024-07-31 11:22 | EXP.UTC ---
Discharge Plan Disposition Patient Disposition: Home, Self-Care Condition: Good Prescriptions Prescriptions: New fluticasone propionate [Flonase Allergy Relief] 50 mcg/actuation spray,suspension 2 spray intranasal DAILY Qty: 16 0RF Rx Instructions: administer into each nostril azithromycin [Zithromax Z-Kai] 250 mg tablet See Rx Instructions .ROUTE .COMPLEX 5 Days Qty: 6 0RF Rx Instructions: For 250 mg dose pack: take 500 mg today (day 1), then 250 mg for 4 days (days 2-5) methylprednisolone [Medrol (Kai)] 4 mg tablets,dose pack See Rx Instructions .Route .COMPLEX 6 Days Qty: 21 0RF Rx Instructions: taper pack; flvmrqyssozbgpn-ivraagokj-ND [Bromfed DM] 2-30-10 mg/5 mL syrup 10 ml PO Q6H PRN (Reason: cold symptoms) Qty: 200 0RF Referrals Follow up/Referrals: Avtar Marquis MD [Primary Care Provider] - See instructions Activity Restrictions/Add. Instructions Additional Instructions/Restrictions: *Monitor Temp, Over the counter Motrin or Tylenol as directed/as needed Tylenol every 4 hours and Motrin every 6 hours (as long as your family doctor has told you that you can take it) for fever or pain. and straight to ER if unable to lower temp less than 101.0 after medication given *Warm salt water gargles may help to soothe the throat *Throat Lozenges? *Warm fluids like tea with honey may help to soothe the throat? *Sleep elevated *Humidifier/Vaporizer *Flonase 2 sprays in each nostril daily but be aware that it may take 2-3 days before you notice improvement *Bromfed may cause drowsiness. Know how it effects you (your child) before driving, caring for small child, or sending your child to school. Not other antihistamines/allergy medications while taking bromfed Your throat swab was sent for culture. Those results are typically sent to your primary care. Be sure to follow up in 2-3 days with your family doctor/primary care physician if no improvement so they can review those result and treat if necessary. If you don?t have a primary care doctor, I recommend you get one but in the mean time, you will have to return to a walk in clinic Follow up IMMEDIATELY for new or worsening symptoms or no Noticeable improvement over the next 48-72 hours. 911 for difficulty breathing or swallowing Clinical Impressions Clinical Impression: Otitis media Instructions Patient Instructions: Middle Ear Infection Print Language Print Language: Frisian Discharge ED Provider: Katey Elliott [facility] [place] H[place] General Stated complaint: Sore throat, H/A, Ear Pain Mode of Arrival: Ambulatory Source of Information: Patient Time Seen by Provider: 07/31/24 11:23 Description of Symptoms (Recalled from Triage Doc. by RN): PINON, EAR ACHE, SORE THROAT X3 WEEKS HEENT Symptoms (Recalled from RN notes): Yes Resp Symptoms (Recalled from RN notes): No Skin Symptoms (Recalled from RN notes): No MS Symptoms (Recalled from RN notes): No Functional Status (Recalled from RN notes): WNL History of Present Illness Provider Complaint: Patient states that she has been having pain in her right ear on and off for about 3 weeks States that she is now having sore scratchy throat, nasal congestion, drainage and headache so she came in to get it checked Related Data Previous Rx's ?Medication ?Instructions ?Recorded azithromycin 250 mg tablet See Rx Instructions PO .COMPLEX 5 07/31/24 (Zithromax Z-Kai) days #6 tabs ujuczmlfajqvmqr-xvaqtsorzazcceb-DF 10 ml PO Q6H PRN cold symptoms 07/31/24 2 mg-30 mg-10 mg/5 mL oral syrup #200 mL (Bromfed DM) fluticasone propionate 50 2 spray intranasal DAILY #16 grams 07/31/24 mcg/actuation nasal spray,suspension (Flonase Allergy Relief) methylprednisolone 4 mg tablets in See Rx Instructions .Route 07/31/24 a dose pack (Medrol (Kai)) .COMPLEX 6 days #21 tabs Allergies Allergy/AdvReac Type Severity Reaction Status Date / Time Penicillins (PENICILLINS) Allergy Unknown Unknown Verified 06/06/24 16:05 allergy reaction Sulfa (Sulfonamide Allergy Unknown Unknown Verified 06/06/24 16:05 Antibiotics) (SULFA allergy (SULFONAMIDE ANTIBIOTICS)) reaction codeine Allergy Unknown Verified 06/06/24 16:05 allergy reaction Worker's Comp Is this a Worker's Comp case?: No [facility] Disclaimer: The information contained in this section may have been updated after the patient was seen, as this information can be updated by other users. 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 Anemia Anxiety Migraine Urinary tract infection Hypertension affecting Depression Surgical History History of tubal ligation History of section Social History Smoking Status: Current every day smoker tobacco type: cigarettes packs per day: 1 and e-cigarettes alcohol intake: never substance use type: denies use current occupational status: unemployed Travel in the last 8 weeks: None ROS Obtained: Yes All systems reviewed & no additional complaints except as documented and Yes Systems reviewed as appropriate & no additional complaints except as documented Constitutional Constitutional: Reports system reviewed and no additional complaints, except as documented and Reports as per HPI Eyes Eyes: Reports system reviewed and no additional complaints, except as documented and Reports as per HPI ENT Ears, Nose, Mouth, and Throat: Reports system reviewed and no additional complaints, except as documented, Reports as per HPI, Reports otalgia, Reports nasal congestion, Reports nasal discharge and Reports sore throat Cardiovascular Cardiovascular: Reports system reviewed and no additional complaints, except as documented and Reports as per HPI Respiratory Respiratory: Reports system reviewed and no additional complaints, except as documented, Reports as per HPI and Reports cough Gastrointestinal Gastrointestingal: Reports system reviewed and no additional complaints, except as documented and as per HPI Physical Exam General General appearance: alert and in no apparent distress ENT ENT exam: Present mucous membranes moist Expanded ENT Exam TM/Canal exam: Right TM: erythema and bulging Nose exam: Present sinus tenderness Throat exam: Present normal inspection Respiratory Respiratory exam: Present normal lung sounds bilaterally; Absent respiratory distress or wheezes Cardiovascular Cardiovascular exam: Present regular rate, normal rhythm and normal heart sounds Abdominal Exam Abdominal exam: Present soft and normal bowel sounds; Absent distention or tenderness Neurological Exam Neurological exam: Present alert, oriented X3 and normal gait Medical Decision Making Medical Records Screening: Per USPSTF and CDC recommendations, given the prevalence of disease in our region, it is our hospital?s policy to screen for HIV and viral Hepatitis for all patients aged 18 and over and those with ongoing risk factors. Yazan Inquiry Pt receiving controlled substance: No Yazan was queried for this patient: No Vital Signs: 07/31/24 11:11 Temperature 98.4 F Temperature Source Oral Pulse Rate [Left Radial] 74 Respiratory Rate 18 Blood Pressure [Left Arm] 116/74 Blood Pressure Mean [Left Arm] 88 02 Sat by Pulse Oximetry 98 Lab Data Lab results reviewed: Yes I reviewed the patient's lab results.
[2024-07-31 11:23] LABS: UTC Strep Screen (Rapid) Negative (Negative)
[2024-07-31 11:43] VITALS: BP 116/74; PULSE 74; RESP 18; TEMP 36.9
== END 2024-07-31 11:44 | disposition home or self-care (01) ==
PROVIDERS: Emergency Provider Nurse Practitioner; PCP Internal Medicine Adolescent Medicine
DX: H66.93 Otitis media, unspecified, bilateral (principal)
CPT/HCPCS: 87880; 99213; G0381

== ENCOUNTER 2024-10-02 17:26 | Outpatient (CLI) | payer OTHER, SELFPAY | END 2024-10-02 23:59 | disposition home or self-care (01) | LOC: LAB.DROPOF 17:26 | PROVIDERS: PCP Nurse Practitioner Family; Visit Provider Nurse Practitioner Family | DX: J02.9 Acute pharyngitis, unspecified (principal); Z72.0 Tobacco use | CPT/HCPCS: 87070 ==

== ENCOUNTER 2024-10-11 14:27 | Outpatient (CLI) | payer OTHER, SELFPAY ==
[2024-10-11 14:52] LABS: Basophils % 0.3 % (0.1-2.0); Eosinophils # 0.1 K/mm3 (0.0-0.4); Eosinophils % 1.9 % (0.1-12.0); Hematocrit 40.9 % (37.0-47.0); Hemoglobin 13.9 g/dL (12.2-16.2); Lymphocytes # 2.6 K/mm3 (0.7-4.5); Lymphocytes % 34.4 % (10-50); Mean Corpuscular Hemoglobin 32.8 pg (27.0-31.2); Mean Corpuscular Volume 96.5 fl (81-99); Mean Platelet Volume 9.3 fl (7.4-10.4); Monocytes # 0.5 K/mm3 (0.1-1.0); Monocytes % 7.1 % (1.7-9.3); Neutrophils # 4.1 K/mm3 (1.8-7.8); Neutrophils % 55.8 % (37.0-80.0); Platelet Count 258 K/mm3 (142-424); Red Blood Count 4.24 M/mm3 (4.20-5.40); Red Cell Distribution Width 11.5 % (11.5-17.5); White Blood Count 7.4 K/mm3 (4.8-10.8)
[2024-10-11 15:40] LABS: Albumin Level 3.7 g/dl (3.5-5.0); Chloride 105 mmol/L (98-107); Sodium 138 mmol/L (136-145)
[2024-10-11 15:43] LABS: Alanine Aminotransferase 14 U/L (12-78); Albumin/Globulin Ratio 1.9 (1.1-1.8); Alkaline Phosphatase 65 U/L (38-126); Aspartate Amino Transferase 16 U/L (14-36); Blood Urea Nitrogen 7 mg/dl (7-17); Calcium 9.2 mg/dl (8.4-10.2); Carbon Dioxide 27 mmol/L (22.0-30.0); Estimated Glomerular Filt Rate 140 ml/min (>60); GFR (African American) 170 ML/MIN (>60); Glucose 89 mg/dl (74-100); Magnesium 1.8 mg/dl (1.6-2.3); Total Protein,Serum 5.7 g/dl (6.3-8.2)
[2024-10-11 15:55] LABS: Bilirubin,Total < 0.1 mg/dl (0.2-1.3)
[2024-10-11 16:00] LABS: T4 (Thyroxine) 7.1 ug/dl (5.53-11.0)
[2024-10-11 16:01] LABS: Free T4 (Free Thyroxine) 0.72 ng/dl (0.78-2.19)
[2024-10-11 16:18] LABS: Ferritin 9.93 ng/ml (6.24-137)
[2024-10-11 16:36] LABS: C-Reactive Protein 0.5 mg/L (0-4)
[2024-10-11 16:49] LABS: 25-OH Vitamin D, Total 23.8 ng/mL (30-100)
[2024-10-11 17:02] LABS: Thyroid Stimulating Hormone 0.87 uIU/mL (0.465-4.68)
[2024-10-11 17:21] LABS: Vitamin B12 249 pg/mL (239-931)
[2024-10-12 08:14] LABS: Thyroid Peroxidase Antibodies <9 IU/mL (0-34); Triiodothyronine (T3) Free 3.4 pg/mL (2.0-4.4)
[2024-10-12 11:18] LABS: Antinuclear Antibodies (ANA) Negative (Negative)
[2024-10-12 21:09] LABS: Thyroglobulin Level <1.0 IU/mL (0.0-0.9)
[2024-10-15 22:07] LABS: Vitamin B2, Whole Blood 207 ug/L (137-370)
[2024-10-16 19:27] LABS: Vitamin B1 130.4 nmol/L (66.5-200.0)
[2024-10-17 12:35] LABS: Vitamin B6 9.8 ug/L (3.4-65.2)
== END 2024-10-11 23:59 | disposition home or self-care (01) ==
LOC: LAB 14:29
PROVIDERS: PCP Nurse Practitioner Family; Visit Provider Nurse Practitioner Family
DX: R68.89 Other general symptoms and signs (principal); R22.0 Localized swelling, mass and lump, head; E55.9 Vitamin D deficiency, unspecified
CPT/HCPCS: 36415; 80053; 82306; 82607; 82728; 83735; 84207; 84252; 84425; 84436; 84439; 84443; 84481; 85025; 86038; 86140; 86376; 86800

== ENCOUNTER 2024-10-20 18:22 | Emergency (ER) | payer OTHER, SELFPAY ==
[2024-10-20 18:24] VITALS: BP 130/73; PULSE 115; RESP 18; TEMP 36.7; O2SAT 100; BMI 20.9
--- NOTE | 2024-10-20 18:35 | CT_ITS ---
PROCEDURE INFORMATION: Exam: CT Neck With Contrast Exam date and time: 10/20/2024 7:12 PM Age: 34 years old Clinical indication: Other: Neck pain/swelling TECHNIQUE: Imaging protocol: Computed tomography of the neck with contrast. Radiation optimization: All CT scans at this facility use at least one of these dose optimization techniques: automated exposure control; mA and/or kV adjustment per patient size (includes targeted exams where dose is matched to clinical indication); or iterative reconstruction. Contrast material: ISOVUE; Contrast volume: 75 ml; Contrast route: IV; COMPARISON: CT FACIAL BONES W CON 10/20/2024 7:08 PM FINDINGS: Salivary glands: Normal. Glands are normal in size. Pharynx: Unremarkable. No significant tonsillar enlargement. Larynx: No epiglottic edema. Thyroid: Normal. No enlarged or calcified nodules. Trachea: Airway is patent. Lungs: Unremarkable as visualized. Lymph nodes: Prominent level 2 and level 3 nodes are likely reactive. Bones/joints: Unremarkable. No acute fracture. Soft tissues: Mild soft tissue edema and heterogeneous enhancement involving the paralaryngeal soft tissues may represent infectious or inflammatory process. IMPRESSION: 1. Mild soft tissue edema and heterogeneous enhancement involving the paralaryngeal soft tissues may represent infectious or inflammatory process. No epiglottic edema. Airway is patent. 2. Prominent level 2 and level 3 nodes are likely reactive.
--- NOTE | 2024-10-20 18:36 | CT_ITS ---
PROCEDURE INFORMATION: Exam: CT Maxillofacial With Contrast Exam date and time: 10/20/2024 7:08 PM Age: 34 years old Clinical indication: Other: Chronic sinus pain/neck pain/swelling TECHNIQUE: Imaging protocol: Computed tomography of the face with contrast. Radiation optimization: All CT scans at this facility use at least one of these dose optimization techniques: automated exposure control; mA and/or kV adjustment per patient size (includes targeted exams where dose is matched to clinical indication); or iterative reconstruction. Contrast material: ISOVUE; Contrast volume: 100 ml; Contrast route: IV; COMPARISON: CT HEAD/BRAIN WO CON 11/25/2023 10:52 PM FINDINGS: Paranasal sinuses: No air-fluid levels. No mucosal thickening. Orbital cavities: Orbits are normal. Globes are unremarkable. Larynx: No epiglottic edema. Trachea: Airway is patent. Bones: No acute fracture. Soft tissues: Mild soft tissue edema and heterogeneous enhancement involving the paralaryngeal soft tissues may represent infectious or inflammatory process. Mild soft tissue edema of the terminates. IMPRESSION: 1. Mild soft tissue edema and heterogeneous enhancement involving the paralaryngeal soft tissues may represent infectious or inflammatory process. No epiglottic edema. Airway is patent. 2. Mild soft tissue edema of the terminates.
--- NOTE | 2024-10-20 18:48 | ECG_ITS ---
APPROVED REPORT Exam: Resting ECG HR:92 bpm ECG Measurements Heart Rate 92 AXES MS 102 P 6 QRSd 87 QRS 12 QT 325 T -3 QTc 374 Conclusion SINUS RHYTHM WITH SHORT MS INTERVAL POSSIBLE RIGHT VENTRICULAR CONDUCTION DELAY [RSR (QR) IN V1/V2] Electronically signed by : OSBALDO AL, 10/21/2024 00:15:53
[2024-10-20] MEDS: KETOROLAC 30MG/ML VIAL 15 MG IV (18:54)
[2024-10-20] MEDS: MAGIC MOUTHWASH 300ML BOTTLE 15 ML PO (18:54)
--- NOTE | 2024-10-20 19:03 | PC.NURSE ---
pt to CT
--- NOTE | 2024-10-20 19:11 | ED_ITS ---
Discharge Plan Disposition Patient Disposition: Home, Self-Care Condition: Good Prescriptions Prescriptions: No Action levocetirizine [Xyzal] 5 mg tablet 5 mg PO DAILY Qty: 30 2RF famotidine 40 mg tablet 40 mg PO DAILY Qty: 30 2RF fluconazole [Diflucan] 100 mg tablet 100 mg PO DAILY 14 Days Qty: 14 0RF prednisone 10 mg tablets,dose pack See Rx Instructions PO PER PKG DIR 12 Days Qty: 48 0RF Rx Instructions: PO PER PKG DIR epinephrine [EpiPen 2-Kai] 0.3 mg/0.3 mL auto-injector 0.3 mg IM Q5-15M PRN (Reason: anaphylaxis) Qty: 2 0RF Rx Instructions: do not exceed 3 doses per episode cholecalciferol (vitamin D3) 50 mcg (2,000 unit) capsule 50 mcg PO DAILY 30 Days Qty: 30 2RF fluticasone propionate [Flonase Allergy Relief] 50 mcg/actuation spray,suspension 2 spray intranasal DAILY Qty: 16 0RF Rx Instructions: administer into each nostril Referrals Follow up/Referrals: Sommer Emanuel APRN [Primary Care Provider] - See instructions Courtney Thomas APRN [Nurse Practitioner] - See instructions Activity Restrictions/Add. Instructions Additional Instructions/Restrictions: You were evaluated in the emergency department today. Please follow-up very closely with ENT early next week. I also recommend close follow-up with your primary care provider. Return to the emergency department right away for new or worsening symptoms, such as difficulty breathing, difficulty swallowing, or other concerns. Continue taking your medications at home as prescribed Clinical Impressions Clinical Impression: Laryngeal edema, Lymphadenopathy Stand Alone Forms Stand Alone Forms: Work/School Release Instructions Patient Instructions: DI for Laryngitis, DI for Lymphadenopathy Print Language Print Language: Croatian Discharge ED Provider: Gabbie Shabazz General Adult HPI General Chief complaint: Upper Respiratory Infection Stated complaint: sent by [facility]-swelling, face mouth throat Time Seen by Provider: 10/20/24 18:34 Mode of Arrival: Ambulatory Source of Information: Patient Limitations: No Limitations Description of Symptoms (Recalled from ER Triage Doc. by RN): Patient states she has been having swelling in her face and throat. States she has been experiencing the symptoms for two weeks. States she has been to her PCP with no diagnosis. States her PCP told her to come to the ED if she has the symptoms again, and she had them again toinght. Denies N/V. Denies diarreha. Denies fever. Patient states she has been on a steroid for 7 days. History of Present Illness HPI narrative: This patient is a 34-year-old female with a history of tobacco dependence presenting to the emergency department for evaluation with concern for swelling in her face and throat. She states that she feels like her neck itself is swollen on the outside and that she is having trouble swallowing secondary to the swelling. No true sore throat, burning in her mouth, or other concerns. She notes previously, her tongue was raw but she was treated with multiple rounds of antibiotics and other medications by her primary care provider on an outpatient basis. She notes that she was started on steroids which did initially improve her symptoms, however her symptoms are now worsening. She is scheduled for a CT and ultrasound next week, but she states that given worsening symptoms wanted to come in today. No fevers, chest pain, or other concerns Related Data Previous Rx's ?Medication ?Instructions ?Recorded fluticasone propionate 50 2 spray intranasal DAILY #16 grams 07/31/24 mcg/actuation nasal spray,suspension (Flonase Allergy Relief) famotidine 40 mg tablet 40 mg PO DAILY #30 tabs 10/02/24 levocetirizine 5 mg tablet (Xyzal) 5 mg PO DAILY #30 tabs 10/02/24 epinephrine 0.3 mg/0.3 mL 0.3 mg (0.3 mL) IM Q5-15M PRN 10/11/24 injection, auto-injector (EpiPen anaphylaxis #2 ea 2-Kai) prednisone 10 mg tablets in a dose See Rx Instructions PO PER PKG DIR 10/11/24 pack 12 days #48 tabs cholecalciferol (vitamin D3) 50 50 mcg PO DAILY 30 days #30 caps 10/13/24 mcg (2,000 unit) capsule fluconazole 100 mg tablet 100 mg PO DAILY 14 days #14 tabs 10/13/24 (Diflucan) Allergies Allergy/AdvReac Type Severity Reaction Status Date / Time Penicillins (PENICILLINS) Allergy Unknown Unknown Verified 10/16/24 13:52 allergy reaction Sulfa (Sulfonamide Allergy Unknown Unknown Verified 10/16/24 13:52 Antibiotics) (SULFA allergy (SULFONAMIDE ANTIBIOTICS)) reaction codeine Allergy Unknown Verified 10/16/24 13:52 allergy reaction [facility] Disclaimer: The information contained in this section may have been updated after the patient was seen, as this information can be updated by other users. 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 Anemia Anxiety Migraine Urinary tract infection Hypertension affecting Depression Surgical History History of tubal ligation History of section Social History Smoking Status: Current every day smoker tobacco type: cigarettes packs per day: 1 and e-cigarettes alcohol intake: never substance use type: denies use current occupational status: unemployed Travel in the last 8 weeks: None Have you lived/traveled outside [place] in past 30 days?: No Contact w/someone who lives/traveled outside [place] past 30 days?: No Exposure to someone with infectious disease in past 14 days?: No Do you have a fever (greater than 100.4 F or 38 C)?: No Have you tested positive for COVID-19: No Exposed to someone with COVID-19 in past 14 days?: No Do you have a sore throat?: No Do you have a cough?: No Do you have any weakness?: No Do you have any diarrhea?: No Are you experiencing any unusual bleeding?: No Do you have any muscle aches/pain?: No Do you have any abdominal pain?: No Are you experiencing loss of taste or smell?: No Other 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 Have you received the Flu Vaccine for this season: No Have you received the Pneumonia Vaccine: No ROS Obtained: Yes All systems reviewed & no additional complaints except as documented Physical Exam General General appearance: alert and in no apparent distress Head Head exam: atraumatic and normocephalic Eye Eye exam: Present normal appearance, PERRL and EOMI ENT ENT exam: Present normal exam, normal oropharynx, mucous membranes moist and normal external ear exam Neck Neck exam: Present normal inspection, full ROM and trachea midline; Absent tenderness Chest Chest inspection: Present normal inspection and symmetric chest wall rise; Absent tenderness Respiratory Respiratory exam: Present normal lung sounds bilaterally; Absent respiratory distress, wheezes, stridor or accessory muscle use Cardiovascular Cardiovascular exam: Present regular rate and normal rhythm Abdominal Exam Abdominal exam: Present soft; Absent distention, tenderness or guarding Extremities Exam Extremities exam: Present normal inspection, full ROM and normal capillary refill; Absent tenderness or edema Back Exam Back exam: Present normal inspection and full ROM; Absent tenderness Neurological Exam Neurological exam: Present alert, oriented X3, CN II-XII intact and normal gait; Absent motor sensory deficit Psychiatric Psychiatric exam: Present normal affect and normal mood Skin Skin exam: Present warm and dry Medical Decision Making Medical Records Medical records reviewed: Yes I reviewed the patient's medical records. Screening: Per USPSTF and CDC recommendations, given the prevalence of disease in our region, it is our hospital?s policy to screen for HIV and viral Hepatitis for all patients aged 18 and over and those with ongoing risk factors. Yazan Inquiry Pt receiving controlled substance: No Vital Signs: 10/20/24 18:24 10/20/24 20:22 Temperature 98.0 F 98.0 F Temperature Source Oral Pulse Rate 105 H Pulse Rate [Radial] 115 H Respiratory Rate 18 18 Blood Pressure 130/73 Blood Pressure [R Arm] 130/73 Blood Pressure Mean [R Arm] 92 Blood Pressure Source [R Arm] Automatic Cuff Blood Pressure Position [R Arm] Sitting 02 Sat by Pulse Oximetry 100 Oxygen Delivery Method Room Air Room Air Lab Data Lab results reviewed: Yes I reviewed the patient's lab results. Orders (Tests/Meds): ED MEDICATIONS Discontinued Medications Generic Name Dose Route Start Last Admin Trade Name Brandinq PRN Reason Stop Dose Admin Dexamethasone Sodium Phosphate 10 mg 10/20/24 19:53 10/20/24 20:13 Dexamethasone 4mg/Ml 1ml Vial IV 10/20/24 19:54 10 mg ONCE ONE Administration Iopamidol 175 ml 10/20/24 19:16 10/20/24 19:18 Iopamidol-370 (76%);100ml Bottle IV 10/20/24 19:17 175 ml ONCE ONE Administration Ketorolac Tromethamine 15 mg 10/20/24 18:37 10/20/24 18:54 Ketorolac 30mg/Ml Vial IV 10/20/24 18:38 15 mg ONCE ONE Administration Sodium Chloride 10 ml 10/20/24 19:16 10/20/24 19:18 Sodium Chloride 0.9% 10ml Syr (Rad Only) IV 10/20/24 19:17 10 ml ONCE ONE Administration Tetracycl/Hydrocort/Nystatin/Diphen 15 ml 10/20/24 18:37 10/20/24 18:54 Magic Mouthwash 300ml Bottle PO 10/20/24 18:38 15 ml ONCE ONE Administration ORDERS Category Date Time Status CT facial bones w con Stat Cat Scan 10/20/24 18:[address] soft tissue neck w con Stat Cat Scan 10/20/24 18:35 Completed ECG Data Tracing #1: I reviewed this ECG and interpreted as documented below: Normal sinus rhythm with a ventricular rate of [address] changes concerning for ischemia. Right ventricular conduction delay. ECG initial impression date: 10/20/24 ECG initial impression time: 18:49 Medical Decision Narrative: In summary, this patient is a 34-year-old female presenting to the Emergency Department for evaluation of neck swelling. Differential diagnoses considered include but are not limited to lymphadenitis, thyromegaly, thrush, pharyngitis, esophagitis. Ruling out the most morbid conditions drove assessment. It should be noted patient's history includes tobacco dependence which is not at goal therapy. This complicates all aspects of care by increasing patient's risk for morbidity. I reviewed patient's past medical records and noted previous PCP evaluations for similar complaints over the last several weeks. She also was evaluated by ENT 10/16/2024 for similar issue. She is scheduled for outpatient imaging, at which point ENT is supposed to discuss the results with her. They also recommended outpatient allergy testing. It appears patient has been diagnosed with recurrent sinusitis and hypertrophy of nasal turbinates On exam, the patient is sitting upright in no acute distress. No appreciable neck swelling on external exam, no palpable thyromegaly, no appreciable lymphadenopathy. No meningismus. No trismus, stridor, drooling. No increased work of breathing. She is tolerating her secretions without issue. Posterior oropharyngeal exam is reassuring with some cobblestoning but no other obvious acute issue. Workup included CT soft tissue neck and CT face with contrast. I considered lab evaluation including inflammatory markers, thyroid studies, blood counts, etc. I reviewed outpatient labs obtained about a week ago at which point all these labs were normal with no significant leukocytosis, normal inflammatory markers, normal thyroid studies. I did give the patient Toradol and Magic mouthwash for symptomatic improvement. I independently interpreted CT scan prior to the radiologist read and noted mild soft tissue edema. Please see their read for final interpretation. On reassessment of the patient is feeling better after Magic mouthwash, Toradol. She states that she is feeling fine and is able to tolerate oral intake, no drooling, no trismus, no stridor, reassuring vitals on cardiac telemetry. She looks great overall. I feel she is stable and appropriate for discharge home with close follow-up with ENT. She is already on steroids as an outpatient as well as fluconazole with concern that this could be related to thrush. She was given very strict return precautions and was discharged after all questions were answered. Critical Care Critical Care Time Critical Care Time: No
[2024-10-20] MEDS: SODIUM CHLORIDE 0.9% 10ML SYR (RAD ONLY) 10 ML IV (19:18)
[2024-10-20] MEDS: IOPAMIDOL-370 (76%);100ML BOTTLE 175 ML IV (19:18)
[2024-10-20] MEDS: DEXAMETHASONE 4MG/ML 1ML VIAL 10 MG IV (20:13)
[2024-10-20 20:22] VITALS: BP 130/73; PULSE 105; RESP 18; TEMP 36.7; O2SAT 98
== END 2024-10-20 20:24 | disposition home or self-care (01) ==
PROVIDERS: Emergency Provider Emergency Medicine; PCP Nurse Practitioner Family
DX: J38.4 Edema of larynx (principal); R59.1 Generalized enlarged lymph nodes; F17.290 Nicotine dependence, other tobacco product, uncomplicated
CPT/HCPCS: 70487; 70491; 93005; 96374; 96375; 99285; J1100; J1885; Q9967

== ENCOUNTER 2024-10-23 12:44 | Outpatient (CLI) | payer OTHER, SELFPAY ==
--- NOTE | 2024-10-23 12:44 | US_ITS ---
FINAL REPORT TECHNIQUE: Sonographic images of the thyroid were obtained. CLINICAL HISTORY: swelling in neck COMPARISON: None FINDINGS: THYROID ULTRASOUND SIZE: The right lobe is 5.4 x 2.1 x 1.9 cm. The left lobe is 5.2 x 1.7 x 1.9 cm. The isthmus is 3 mm. ECHOGENICITY: Homogeneous LESIONS: No focal lesions. OTHER: No additional findings. IMPRESSION: Unremarkable thyroid evaluation. TI-RADS: Not applicable RECOMMENDATIONS: No additional follow-up needed at this time. Reviewed, Interpreted and Dictated by Claribel Keen MD Transcribed by Renetta Haley Authenticated and . [facility]
== END 2024-10-23 23:59 | disposition home or self-care (01) ==
LOC: RAD 12:44
PROVIDERS: PCP Nurse Practitioner Family; Visit Provider Nurse Practitioner Family
DX: R22.1 Localized swelling, mass and lump, neck (principal); R68.89 Other general symptoms and signs
CPT/HCPCS: 76536

== ENCOUNTER 2024-10-25 14:13 | Outpatient (CLI) | payer OTHER, SELFPAY ==
[2024-10-25 17:18] LABS: Basophils % 0.2 % (0.1-2.0); Eosinophils # 0.1 K/mm3 (0.0-0.4); Eosinophils % 0.8 % (0.1-12.0); Hematocrit 42.2 % (37.0-47.0); Hemoglobin 14.2 g/dL (12.2-16.2); Lymphocytes # 5.6 K/mm3 (0.7-4.5); Lymphocytes % 36.2 % (10-50); Mean Corpuscular HGB Conc 33.6 g/dL (31.8-35.4); Mean Corpuscular Hemoglobin 32.6 pg (27.0-31.2); Mean Platelet Volume 9.8 fl (7.4-10.4); Monocytes # 0.9 K/mm3 (0.1-1.0); Monocytes % 5.6 % (1.7-9.3); Neutrophils # 8.7 K/mm3 (1.8-7.8); Neutrophils % 56.1 % (37.0-80.0); Platelet Count 342 K/mm3 (142-424); Red Blood Count 4.35 M/mm3 (4.20-5.40); Red Cell Distribution Width 11.9 % (11.5-17.5); White Blood Count 15.5 K/mm3 (4.8-10.8)
[2024-10-25 17:21] LABS: MANUAL DIFFERENTIAL MANUAL DIFFERENTIAL (MANUAL DIFF)
[2024-10-25 17:43] LABS: Lymphocytes % 30 % (10-50); Monocytes % 3 % (2-9); Neutrophils % 67 % (42-76); Total Cells Counted 100
[2024-10-25 17:44] LABS: Platelet Estimate Normal; RBC Morphology Normal
[2024-10-25 18:05] LABS: Erythrocyte Sedimentation Rate 1 mm/hr (0-20)
[2024-10-25 18:13] LABS: C-Reactive Protein < 0.3 mg/L (0-4)
[2024-10-26 14:18] LABS: EBV Ab VCA, IgM <36.0 U/mL (0.0-35.9); EBV Nuclear Antigen Ab, IgG >600.0 U/mL (0.0-17.9)
[2024-11-01 09:20] LABS: Lyme B. burgdorferi PCR Blood Negative (Negative)
== END 2024-10-25 23:59 | disposition home or self-care (01) ==
LOC: LAB.DROPOF 10-26 12:54
PROVIDERS: PCP Nurse Practitioner Family; Visit Provider Nurse Practitioner Family
DX: J38.4 Edema of larynx (principal); F17.210 Nicotine dependence, cigarettes, uncomplicated
CPT/HCPCS: 85007; 85025; 85027; 85651; 86140; 86664; 86665; 87476

== ENCOUNTER 2024-10-27 15:32 | Outpatient (CLI) | payer OTHER, SELFPAY | END 2024-10-27 23:59 | disposition home or self-care (01) | LOC: LAB.DROPOF 10-29 04:20 | PROVIDERS: PCP Nurse Practitioner Family; Visit Provider Nurse Practitioner Family | DX: J38.4 Edema of larynx (principal); R59.1 Generalized enlarged lymph nodes; R68.89 Other general symptoms and signs; J01.01 Acute recurrent maxillary sinusitis; J02.9 Acute pharyngitis, unspecified; Z20.818 Contact with and (suspected) exposure to other bacterial communicable diseases; Z72.0 Tobacco use | CPT/HCPCS: 87070 ==

== ENCOUNTER 2024-11-19 08:37 | Emergency (ER) | payer OTHER, SELFPAY ==
[2024-11-19 08:41] VITALS: BP 95/48; PULSE 101; RESP 16; TEMP 36.7; O2SAT 100; BMI 21.8
[2024-11-19 09:09] LABS: Microscopic, Urine URINE MICROSCOPIC (MICROSCOPIC)
--- NOTE | 2024-11-19 09:10 | ED_ITS ---
Discharge Plan Disposition Patient Disposition: Home, Self-Care Condition: Good Prescriptions Prescriptions: New metronidazole 500 mg tablet 500 mg PO BID 7 Days Qty: 14 0RF No Action famotidine 40 mg tablet 40 mg PO DAILY Qty: 30 2RF sertraline 25 mg tablet 25 mg PO DAILY Qty: 30 2RF epinephrine [EpiPen 2-Kai] 0.3 mg/0.3 mL auto-injector 0.3 mg IM Q5-15M PRN (Reason: anaphylaxis) Qty: 2 0RF Rx Instructions: do not exceed 3 doses per episode cholecalciferol (vitamin D3) 50 mcg (2,000 unit) capsule 50 mcg PO DAILY 30 Days Qty: 30 2RF hydroxyzine pamoate 25 mg capsule See Rx Instructions .ROUTE .COMPLEX Qty: 30 0RF Dose Instruction: TAKE 1 CAPSULE BY MOUTH THREE TIMES DAILY NEEDED FOR ANXIETY Rx Instructions: TAKE 1 CAPSULE BY MOUTH THREE TIMES DAILY NEEDED FOR ANXIETY Referrals Follow up/Referrals: Sommer Emanuel APRN [Primary Care Provider] - See instructions Activity Restrictions/Add. Instructions Additional Instructions/Restrictions: You were evaluated in the emergency department today. Your tests are still pending, we are prescribing you Flagyl to treat bacterial vaginosis assuming that that is what is causing your symptoms. Follow-up closely with gynecology for reassessment. Please also follow-up with your primary care provider. Return to the emergency department for new or worsening symptoms. Take Tylenol and ibuprofen as needed for pain. Clinical Impressions Clinical Impression: BV (bacterial vaginosis) Stand Alone Forms Stand Alone Forms: Work/School Release Instructions Patient Instructions: Vulvovaginitis Print Language Print Language: Estonian Discharge ED Provider: Gabbie Shabazz General Adult HPI General Chief complaint: Urogenital-Female Stated complaint: burning in genital area frequant urination Time Seen by Provider: 11/19/24 08:56 Mode of Arrival: Ambulatory Source of Information: Patient Description of Symptoms (Recalled from ER Triage Doc. by RN): Patient presents ambulatory to triage. Patient states, I think I have BV. When I got up this morning, I also started having burning when I pee so I think I may also have a UTI. Patient endorses a history of BV. Endorses similar symptoms now. LMP was last month. Denies any chance of . Patient endorses a history of tubal removal. History of Present Illness HPI narrative: This patient is a 34-year-old female who denies significant past medical history presenting to the emergency department for evaluation with concern for vaginal itching, irritation, dysuria, and urinary frequency. Patient reports that she started having vaginal itching and abnormal vaginal odor a few days ago. She notes that it is fishy and sour smelling. She notes that this is similar to when she had BV in the past. She notes that this morning, she started having dysuria, urinary frequency, urinary urgency. She denies any other concerns or complaints, such as fevers, chills, nausea, vomiting, back pain, or other concerns. Related Data Previous Rx's ?Medication ?Instructions ?Recorded famotidine 40 mg tablet 40 mg PO DAILY #30 tabs 10/02/24 epinephrine 0.3 mg/0.3 mL 0.3 mg (0.3 mL) IM Q5-15M PRN 10/11/24 injection, auto-injector (EpiPen anaphylaxis #2 ea 2-Kai) cholecalciferol (vitamin D3) 50 50 mcg PO DAILY 30 days #30 caps 10/13/24 mcg (2,000 unit) capsule sertraline 25 mg tablet 25 mg PO DAILY #30 tabs 10/27/24 hydroxyzine pamoate 25 mg capsule See Rx Instructions .Route 11/08/24 .COMPLEX #30 caps metronidazole 500 mg tablet 500 mg PO BID 7 days #14 tabs 11/19/24 Allergies Allergy/AdvReac Type Severity Reaction Status Date / Time Penicillins (PENICILLINS) Allergy Unknown Unknown Verified 11/19/24 08:46 allergy reaction Sulfa (Sulfonamide Allergy Unknown Unknown Verified 11/19/24 08:46 Antibiotics) (SULFA allergy (SULFONAMIDE ANTIBIOTICS)) reaction codeine Allergy Unknown Verified 11/19/24 08:46 allergy reaction PFSH PFS Disclaimer: The information contained in this section may have been updated after the patient was seen, as this information can be updated by other users. 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 Anemia Anxiety Migraine Urinary tract infection Hypertension affecting Depression Surgical History History of tubal ligation History of section Social History Smoking Status: Current every day smoker tobacco type: cigarettes packs per day: 1 and e-cigarettes alcohol intake: never substance use type: denies use current occupational status: unemployed Travel in the last 8 weeks: None Have you lived/traveled outside [place] in past 30 days?: No Contact w/someone who lives/traveled outside [place] past 30 days?: No Exposure to someone with infectious disease in past 14 days?: No Do you have a fever (greater than 100.4 F or 38 C)?: No Have you tested positive for COVID-19: No Exposed to someone with COVID-19 in past 14 days?: No Do you have a sore throat?: No Do you have a cough?: No Do you have any weakness?: No Do you have any diarrhea?: No Are you experiencing any unusual bleeding?: No Do you have any muscle aches/pain?: No Do you have any abdominal pain?: No Are you experiencing loss of taste or smell?: No Other 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 Have you received the Flu Vaccine for this season: No Have you received the Pneumonia Vaccine: No ROS Obtained: Yes All systems reviewed & no additional complaints except as documented Physical Exam General General appearance: alert and in no apparent distress Head Head exam: atraumatic and normocephalic Eye Eye exam: Present normal appearance, PERRL and EOMI ENT ENT exam: Present normal exam, normal oropharynx, mucous membranes moist and normal external ear exam Neck Neck exam: Present normal inspection, full ROM and trachea midline; Absent tenderness Chest Chest inspection: Present normal inspection and symmetric chest wall rise; Absent tenderness Respiratory Respiratory exam: Present normal lung sounds bilaterally; Absent respiratory distress, wheezes, stridor or accessory muscle use Cardiovascular Cardiovascular exam: Present regular rate and normal rhythm Abdominal Exam Abdominal exam: Present soft; Absent distention, tenderness or guarding Extremities Exam Extremities exam: Present normal inspection, full ROM and normal capillary refill; Absent tenderness or edema Back Exam Back exam: Present normal inspection and full ROM; Absent tenderness Neurological Exam Neurological exam: Present alert, oriented X3, CN II-XII intact and normal gait; Absent motor sensory deficit Psychiatric Psychiatric exam: Present normal affect and normal mood Skin Skin exam: Present warm and dry Medical Decision Making Medical Records Medical records reviewed: Yes I reviewed the patient's medical records. Screening: Per USPSTF and CDC recommendations, given the prevalence of disease in our region, it is our hospital?s policy to screen for HIV and viral Hepatitis for all patients aged 18 and over and those with ongoing risk factors. [place] Inquiry Pt receiving controlled substance: No Vital Signs: 11/19/24 08:41 11/19/24 09:41 11/19/24 10:38 Temperature 98.1 F 98.1 F Temperature Source Oral Oral Pulse Rate 98 H 90 Pulse Rate [Radial] 101 H Respiratory Rate 16 16 Blood Pressure 99/60 L 109/62 L Blood Pressure [R Arm] 95/48 L Blood Pressure Mean [R Arm] 63 Blood Pressure Source Automatic Cuff Blood Pressure Source [R Arm] Automatic Cuff Blood Pressure Position Sitting 02 Sat by Pulse Oximetry 100 100 Oxygen Delivery Method Room Air Room Air Room Air Lab Data Lab results reviewed: Yes I reviewed the patient's lab results. Lab Results 11/19/24 08:50: Urine Color Yellow, Urine Appearance Slightly cloudy, Urine pH 6.0, Ur Specific [place] 1.025, Urine Protein Trace A, Urine Glucose (UA) Negative, Urine Ketones Negative, Urine Blood Negative, Urine Nitrate Negative, Urine Bilirubin Negative, Urine Urobilinogen 0.2, Ur Leukocyte Esterase Negative, Urine RBC None, Urine WBC None, Ur Squamous Epith Cells 3-5, Urine Bacteria Trace, Urine HCG, Qual Negative Orders (Tests/Meds): ED MEDICATIONS Discontinued Medications Generic Name Dose Route Start Last Admin Trade Name Freq PRN Reason Stop Dose Admin Metronidazole 500 mg 11/19/24 10:31 11/19/24 10:33 Metronidazole 500 Mg Tablet PO 11/19/24 10:32 500 mg ONCE ONE Administration ORDERS Category Date Time Status UA [Urinalysis and Microscopic] Stat Lab 11/19/24 08:50 Completed Urine , HCG Qual. Stat Lab 11/19/24 08:50 Completed Medical Decision Narrative: In summary, this patient is a 34-year-old female presenting to the Emergency Department for evaluation of vaginal itching irritation, abnormal vaginal discharge, dysuria, urinary frequency. Differential diagnoses considered include but are not limited to BV, candidiasis, trichomonas, STI, cystitis, vulvovaginitis. Ruling out the most morbid conditions drove assessment. I reviewed patient's past medical records and noted she does have a history of BV as well as trichomonas in the past. She is status post tubal ligation. On exam, the patient is sitting upright in no acute distress. She has no systemic symptoms such as fevers, chills, nausea, vomiting, or flank pain to suggest pyelonephritis. I considered obtaining basic lab evaluation including CBC and CMP, however based on reassuring history and exam I do not feel that is indicated as it would likely not manager of change. Workup included urinalysis, gonorrhea/chlamydia testing, wet prep and CINTHYA for BV/Sonia/trichomonas. Urinalysis is not concerning for infection overtly, but urine culture was sent and is pending. Wet prep/CINTHYA does not demonstrate any yeast or clue cells, but the patient does have moderate bacteria. No trichomonas. She denies any concerns for sexually transmitted infection and thus denies need for empiric treatment. Given this, will treat as BV despite the fact that there are no clue cells. Patient was prescribed Flagyl. Gonorrhea chlamydia testing pending. Strict return precautions given as well as instructions for close outpatient follow-up. Critical Care Critical Care Time Critical Care Time: No
[2024-11-19 09:16] LABS: Urine Pregnancy, HCG Qual. Negative (Negative)
[2024-11-19 09:41] VITALS: BP 99/60; PULSE 98; O2SAT 100
[2024-11-19 09:42] LABS: Color,Urine Yellow (Yellow)
[2024-11-19 09:43] LABS: Appearance,Urine Slightly Cloudy (Clear); Bilirubin,Urine Negative (Negative); Blood, Urine Negative (Negative); Glucose,Urine (UA) Negative (Negative); Ketones,Urine Negative (Negative); Leukocyte Esterase,Urine Negative (Negative); Nitrate,Urine Negative (Negative); Protein,Urine Trace (Negative); Specific Gravity, Urine 1.025 (1.005-1.030); Urobilinogen,Urine 0.2 EU/dl (0.2)
[2024-11-19 09:44] LABS: Bacteria,Urine Trace /lpf
[2024-11-19] MEDS: metroNIDAZOLE 500 MG TABLET PO (10:33)
[2024-11-19 10:38] VITALS: BP 109/62; PULSE 90; RESP 16; TEMP 36.7; O2SAT 100
[2024-11-22 06:10] LABS: Neisseria gonorrhoeae, NAA Negative (Negative)
== END 2024-11-19 10:39 | disposition home or self-care (01) ==
PROVIDERS: Emergency Provider Emergency Medicine; PCP Nurse Practitioner Family
DX: N76.0 Acute vaginitis (principal); R30.9 Painful micturition, unspecified; R30.0 Dysuria; R35.0 Frequency of micturition; R39.15 Urgency of urination; F17.290 Nicotine dependence, other tobacco product, uncomplicated
CPT/HCPCS: 81001; 81025; 87210; 87491; 87591; 99283

== ENCOUNTER 2025-01-11 14:16 | Outpatient (CLI) | payer OTHER, SELFPAY ==
[2025-01-11 16:47] LABS: HIV Combo NEGATIVE (Negative)
[2025-01-11 16:55] LABS: Hepatitis C Ab Qual. W/ RFX NEGATIVE (Negative)
== END 2025-01-11 23:59 | disposition home or self-care (01) ==
LOC: LAB 14:16
PROVIDERS: PCP Nurse Practitioner Family; Visit Provider Nurse Practitioner Obstetrics & Gynecology
DX: Z11.3 Encounter for screening for infections with a predominantly sexual mode of transmission (principal)
CPT/HCPCS: 36415; 86803; 87389

== ENCOUNTER 2025-07-27 08:18 | Outpatient (CLI) | payer OTHER, SELFPAY ==
[2025-08-02 19:20] LABS: Mycoplasma genitalium, NAA Positive (Negative); Neisseria gonorrhoeae, NAA Negative (Negative)
== END 2025-07-27 23:59 | disposition home or self-care (01) ==
LOC: LAB.DROPOF 07-28 08:18
PROVIDERS: PCP Nurse Practitioner Family; Visit Provider Student in an Organized Health Care Education/Training Program
DX: N39.0 Urinary tract infection, site not specified (principal); Z20.2 Contact with and (suspected) exposure to infections with a predominantly sexual mode of transmission
CPT/HCPCS: 87086; 87491; 87563; 87591; 87661